=== PATIENT | female | born 1940 | race Caucasian/White ===

== ENCOUNTER → 2018-07-31 10:39 | Outpatient (BNVA) | payer MEDICARE, MEDICAID, SELFPAY | PROVIDERS: Visit Provider Orthopaedic Surgery | DX: M19.011 Primary osteoarthritis, right shoulder (principal); M25.511 Pain in right shoulder; I11.0 Hypertensive heart disease with heart failure; I50.9 Heart failure, unspecified | CPT/HCPCS: 20610; 99213; J1040 ==

== ENCOUNTER 2018-07-31 11:47 | Outpatient (CLI) | payer MEDICARE, MEDICAID, SELFPAY ==
--- NOTE | 2018-07-31 11:18 | DI.RAD_ITS ---
SYMPTOM/DIAGNOSIS: RIGHT SHOULDER PAIN RIGHT SHOULDER: AP and axillary projections of the right shoulder revealed joint space narrowing and articular sclerosis. There is also moderate DJD involving the AC joint. SUMMARY: Severe DJD, right shoulder.
== END 2018-07-31 12:07 ==
PROVIDERS: Visit Provider Orthopaedic Surgery
DX: M25.511 Pain in right shoulder (principal); M19.011 Primary osteoarthritis, right shoulder
CPT/HCPCS: 20610; 99213; 73030; J1040

== ENCOUNTER 2018-08-15 14:46 | Inpatient (IN) | payer MEDICARE, MEDICAID, SELFPAY ==
[2018-08-15] VITALS (70 sets, daily range): BP systolic 58–144; BP diastolic 20–95; PULSE 78–123; RESP 9–33; TEMP 37–37.2; O2SAT 83–98
--- NOTE | 2018-08-15 14:52 | W.ED.GENAD ---
Discharge Plan Disposition Patient Disposition: [facility] INPATIENT Condition: Stable Discharge Details Chief Complaint: GI Bleed Clinical Impression: Acute upper GI bleed Primary Care Provider: Randal Sainz ED Provider: García Ahumada [place] Meds and New Rx's Prescriptions: No Action methylprednisolone acetate [Depo-Medrol] 80 mg/mL suspension 80 mg IU ONCE Qty: 1 RF: 0 omeprazole 20 MG capsule,delayed release(DR/EC) 20 mg PO DAILY PRNRF: 0 ropinirole 0.5 MG tablet 1 mg PO HS Qty: 60 RF: 0 gabapentin 300 MG capsule 400 mg PO TID RF: 0 carvedilol 3.125 MG tablet 3.125 mg PO BID RF: 0 apixaban [Eliquis] 5 MG tablet 5 mg PO BID RF: 0 potassium chloride [Klor-Con M20] 20 MEQ tablet,ER particles/crystals 10 meq PO BID RF: 0 cyanocobalamin (vitamin B-12) [Vitamin B-12] 500 MCG tablet 2,000 mcg PO DAILY RF: 0 docusate sodium [Stool Softener] 50 MG capsule 1 cap PO BID PRN PRNQty: 0 RF: 0 hydrocodone-acetaminophen 1 TAB tablet 1 tab PO .Q4HRS PRN PRNQty: 30 RF: 0 amlodipine 10 MG tablet 5 mg PO DAILY RF: 0 amoxicillin-pot clavulanate 1 TAB tablet 1 tab PO BID 6 Days Qty: 13 RF: 0 Medical Decision Making 77 yo female with hx of prior pe's and dvts on eliquis, comes in with cc of n/v since Saturday and today has had bloody vomit per report of ems and pt. HAs also had some weakness, denies any chest pain, sob or abdominal pain. She is HD stable at this time. Given lack of abdominal pain on exam or distention doubt entities such as sbo or other surgical pathology. She has had diarrhea as well so likely has gastroenteritis which could have caused rasheeda gay tear. No hx of liver disease or heavy alcohol use so doubt varices. Will give ppi and eval for anemia and electrolyte abnormalities and monitor pt's labs show no significaitn abnormalities but does have elvated bun so would fit with upper gi bleed. Remains HD stable. Will admit for upper gi bleed Differential Diagnosis gastroenteritis, ulcer, rasheeda gay tear Lab Data Lab results reviewed: Yes I reviewed the patient's lab results. ECG Data Attestation: I personally reviewed and interpreted this ECG (s) as follows: Prior ECG tracings: not available for review Interpretation: atrial tachycardia, rate of 1056, normal pr, normal axis HPI General Mode of arrival: EMS. Date/Time Provider Initiated Documentation: 08/15/18 14:50. Limitations to Documentation: no limitations. Information obtained by: patient and EMS. History of Present Illness 77 year old F presents to the emergency department with the chief complaint of nausea and vomit, described as moderate, Patient started experiencing this day(s) (2) and it has been constant. No relieving factors improve symptom(s), Patient notes weakness. Patient did receive the following treatments prior to arrival, none Related Data Home Medications Medication Instructions Recorded Confirmed omeprazole 20 mg PO DAILY PRN tab-cap NS 01/08/13 07/31/18 ropinirole 1 mg PO HS #60 tab 04/10/13 07/31/18 gabapentin 400 mg PO TID 01/27/15 07/31/18 apixaban [Eliquis] 5 mg PO BID 03/29/15 07/31/18 carvedilol 3.125 mg PO BID 03/29/15 07/31/18 cyanocobalamin (vitamin B-12) 2,000 mcg PO DAILY 03/29/15 07/31/18 [Vitamin B-12] potassium chloride [Klor-Con M20] 10 meq PO BID 03/29/15 07/31/18 docusate sodium [Stool Softener] 1 cap PO BID PRN PRN #0 05/02/15 07/31/18 hydrocodone-acetaminophen 1 tab PO .Q4HRS PRN PRN #30 tab 05/02/15 07/31/18 amlodipine 5 mg PO DAILY 01/13/18 07/31/18 amoxicillin-pot clavulanate 1 tab PO BID 6 Days #13 tab 01/17/18 07/31/18 Previous Rx's Medication Instructions Recorded ropinirole 1 mg PO HS #60 tab 04/10/13 docusate sodium [Stool Softener] 1 cap PO BID PRN PRN #0 05/02/15 hydrocodone-acetaminophen 1 tab PO .Q4HRS PRN PRN #30 tab 05/02/15 amoxicillin-pot clavulanate 1 tab PO BID 6 Days #13 tab 01/17/18 Allergies Allergy/AdvReac Type Severity Reaction Status Date / Time Sulfa (Sulfonamide Allergy Intermediate Contraindic Unverified 08/15/18 15:29 Antibiotics) ated metoclopramide HCl AdvReac Mild Diarrhea Unverified 08/15/18 15:29 [From [facility] [place]] Review of Systems Review of Systems All systems reviewed & are unremarkable except as noted in HPI and below Constitutional Denies chills and Denies fever(s) Eyes Denies loss of vision ENT Denies change in voice Cardiovascular Denies chest pain and Denies dyspnea Respiratory Denies dyspnea Gastrointestinal Denies abdominal pain, Reports nausea and Reports vomiting Genitourinary Denies dysuria Musculoskeletal Denies joint swelling Integumentary/Breasts Denies rash Neurologic Denies loss of vision Psychiatric Denies depression Endocrine Denies cold intolerance and Denies heat intolerance Allergic/Immunologic Reports urticaria PFSH Medical History Chronic congestive heart failure Essential hypertension 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 Mixed hyperlipidemia Morbid obesity Personal history of pulmonary embolism Polymyalgia rheumatica Restless legs Social History Smoking/Tobacco Use Status: Never Surgical History Cholecystectomy Hernia Repair, Incisional Repair of umbilical hernia Exam Const General: no acute distress Orientation: alert HENMS Head: normal to inspection Ears: external ears normal General nose exam: external nose normal Mouth: moist mucous membranes Eyes General: appearance normal, both eyes and all related structures Neck Neck: normal visual inspection Resp Effort & Inspection: normal respiratory effort and able to speak in complete sentences Cardio Rate: regular rate GI Palpation: soft, not firm, no guarding and nontender Skin General skin exam: no rashes or lesions noted Neuro General: alert and oriented x3 Extrem General: normal to inspection Psych Mental Status: mental status grossly normal
--- NOTE | 2018-08-15 14:56 | ED.GENADUL_ITS ---
Discharge Plan Disposition Patient Disposition: [facility] INPATIENT Condition: Stable Discharge Details Chief Complaint: GI Bleed Clinical Impression: Acute upper GI bleed Primary Care Provider: Randal Sainz ED Provider: García Ahumada [place] Meds and New Rx's Prescriptions: No Action methylprednisolone acetate [Depo-Medrol] 80 mg/mL suspension 80 mg IU ONCE Qty: 1 RF: 0 omeprazole 20 MG capsule,delayed release(DR/EC) 20 mg PO DAILY PRNRF: 0 ropinirole 0.5 MG tablet 1 mg PO HS Qty: 60 RF: 0 gabapentin 300 MG capsule 400 mg PO TID RF: 0 carvedilol 3.125 MG tablet 3.125 mg PO BID RF: 0 apixaban [Eliquis] 5 MG tablet 5 mg PO BID RF: 0 potassium chloride [Klor-Con M20] 20 MEQ tablet,ER particles/crystals 10 meq PO BID RF: 0 cyanocobalamin (vitamin B-12) [Vitamin B-12] 500 MCG tablet 2,000 mcg PO DAILY RF: 0 docusate sodium [Stool Softener] 50 MG capsule 1 cap PO BID PRN PRNQty: 0 RF: 0 hydrocodone-acetaminophen 1 TAB tablet 1 tab PO .Q4HRS PRN PRNQty: 30 RF: 0 amlodipine 10 MG tablet 5 mg PO DAILY RF: 0 amoxicillin-pot clavulanate 1 TAB tablet 1 tab PO BID 6 Days Qty: 13 RF: 0 Medical Decision Making 77 yo female with hx of prior pe's and dvts on eliquis, comes in with cc of n/v since Saturday and today has had bloody vomit per report of ems and pt. HAs also had some weakness, denies any chest pain, sob or abdominal pain. She is HD stable at this time. Given lack of abdominal pain on exam or distention doubt entities such as sbo or other surgical pathology. She has had diarrhea as well so likely has gastroenteritis which could have caused rasheeda gay tear. No hx of liver disease or heavy alcohol use so doubt varices. Will give ppi and eval for anemia and electrolyte abnormalities and monitor pt's labs show no significaitn abnormalities but does have elvated bun so would fit with upper gi bleed. Remains HD stable. Will admit for upper gi bleed Differential Diagnosis gastroenteritis, ulcer, rasheeda gay tear Lab Data Lab results reviewed: Yes I reviewed the patient's lab results. ECG Data Attestation: I personally reviewed and interpreted this ECG (s) as follows: Prior ECG tracings: not available for review Interpretation: atrial tachycardia, rate of 1056, normal pr, normal axis HPI General Mode of arrival: EMS . Date/Time Provider Initiated Documentation: 08/15/18 14:50 . Limitations to Documentation: no limitations . Information obtained by: patient and EMS . History of Present Illness 77 year old F presents to the emergency department with the chief complaint of nausea and vomit, described as moderate, Patient started experiencing this day(s) (2) and it has been constant. No relieving factors improve symptom(s) , Patient notes weakness. Patient did receive the following treatments prior to arrival, none Related Data Home Medications Medication Instructions Recorded Confirmed omeprazole 20 mg PO DAILY PRN tab-cap NS 01/08/13 07/31/18 ropinirole 1 mg PO HS #60 tab 04/10/13 07/31/18 gabapentin 400 mg PO TID 01/27/15 07/31/18 apixaban [Eliquis] 5 mg PO BID 03/29/15 07/31/18 carvedilol 3.125 mg PO BID 03/29/15 07/31/18 cyanocobalamin (vitamin B-12) 2,000 mcg PO DAILY 03/29/15 07/31/18 [Vitamin B-12] potassium chloride [Klor-Con M20] 10 meq PO BID 03/29/15 07/31/18 docusate sodium [Stool Softener] 1 cap PO BID PRN PRN #0 05/02/15 07/31/18 hydrocodone-acetaminophen 1 tab PO .Q4HRS PRN PRN #30 tab 05/02/15 07/31/18 amlodipine 5 mg PO DAILY 01/13/18 07/31/18 amoxicillin-pot clavulanate 1 tab PO BID 6 Days #13 tab 01/17/18 07/31/18 Previous Rx's Medication Instructions Recorded ropinirole 1 mg PO HS #60 tab 04/10/13 docusate sodium [Stool Softener] 1 cap PO BID PRN PRN #0 05/02/15 hydrocodone-acetaminophen 1 tab PO .Q4HRS PRN PRN #30 tab 05/02/15 amoxicillin-pot clavulanate 1 tab PO BID 6 Days #13 tab 01/17/18 Allergies Allergy/AdvReac Type Severity Reaction Status Date / Time Sulfa (Sulfonamide Allergy Intermediate Contraindic Unverified 08/15/18 15:29 Antibiotics) ated metoclopramide HCl AdvReac Mild Diarrhea Unverified 08/15/18 15:29 [[facility] [place] Review of Systems Review of Systems All systems reviewed & are unremarkable except as noted in HPI and below Constitutional Denies chills and Denies fever(s) Eyes Denies loss of vision ENT Denies change in voice Cardiovascular Denies chest pain and Denies dyspnea Respiratory Denies dyspnea Gastrointestinal Denies abdominal pain, Reports nausea and Reports vomiting Genitourinary Denies dysuria Musculoskeletal Denies joint swelling Integumentary/Breasts Denies rash Neurologic Denies loss of vision Psychiatric Denies depression Endocrine Denies cold intolerance and Denies heat intolerance Allergic/Immunologic Reports urticaria PFSH Medical History Chronic congestive heart failure Essential hypertension 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 Mixed hyperlipidemia Morbid obesity Personal history of pulmonary embolism Polymyalgia rheumatica Restless legs Social History Smoking/Tobacco Use Status: Never Surgical History Cholecystectomy Hernia Repair, Incisional Repair of umbilical hernia Exam Const General: no acute distress Orientation: alert HENPA Head: normal to inspection Ears: external ears normal General nose exam: external nose normal Mouth: moist mucous membranes Eyes General: appearance normal, both eyes and all related structures Neck Neck: normal visual inspection Resp Effort & Inspection: normal respiratory effort and able to speak in complete sentences Cardio Rate: regular rate GI Palpation: soft, not firm, no guarding and nontender Skin General skin exam: no rashes or lesions noted Neuro General: alert and oriented x3 Extrem General: normal to inspection Psych Mental Status: mental status grossly normal
[2018-08-15 15:15] LABS: Abs Immature Grans 0.01 k/cumm (0.0-0.09); Absolute Basophil Count 0.01 k/cumm (0.0-0.2); Absolute Eosinophil Count 0.01 k/cumm (0.0-0.7); Absolute Lymphocyte Count 1.19 k/cumm (1.2-3.4); Absolute Monocyte Count 0.81 k/cumm (0.11-0.7); Absolute Neutrophil Count 7.53 k/cumm (1.2-6.7); Basophils % 0.1; Eosinophils % 0.1; HCT 39.6 % (36.0-46.0); HGB 12.7 g/dL (12.0-15.5); Immature Grans % 0.1; Lymphocytes % 12.4; Mean Corp. HGB Concentration 32.1 g/dL (32.0-36.0); Mean Corpuscular Hemoglobin 31.6 pg (27.0-33.0); Mean Corpuscular Volume 98.5 fL (80-95); Mean Platelet Volume 10.8 fL (8.0-11.0); Monocytes % 8.5; Neutrophils % 78.8; Platelet Count 201 x1000/uL (130-400); RBC 4.02 m/cumm (4.00-5.20); RBC Distribution Width 14.9 % (11.7-14.6); White Blood Cell Count 9.56 k/cumm (4.4-10.8)
[2018-08-15] MEDS: Ondansetron 4 MG/2 ML VIAL IVP (15:21)
[2018-08-15] MEDS: Pantoprazole 40 MG VIAL IVP ×2 (15:22→16:08)
[2018-08-15 15:25] LABS: Lipase 95 U/L (73-393)
[2018-08-15 15:27] LABS: INR 1.2 (1.0-3.5); PTT Activated 25.9 sec (21.0-31.4); Prothrombin Time 11.7 sec (9.3-10.8)
[2018-08-15 15:38] LABS: ALT 12 U/L (12-78); AST 32 U/L (15-37); Albumin 2.7 g/dL (3.4-5.0); Alkaline Phosphatase 85 U/L (46-116); Anion Gap 5.9 mmol/L (3-11); BUN 49 mg/dL (7-18); Bilirubin, Direct 0.16 mg/dL (0.00-0.20); Bilirubin, Total 0.6 mg/dL (0.2-1.0); CO2 32.1 mmol/L (21.0-32.0); CREATININE 1.16 mg/dL (0.55-1.02); Calcium 10.3 mg/dL (8.5-10.1); Chloride 105 mmol/L (98-107); Estimated GFR 45.07 (mL/min/1.73m2); Glucose 115 mg/dL (70-100); Magnesium 1.5 mg/dL (1.8-2.4); Potassium 3.8 mmol/L (3.5-5.1); Sodium 143 mmol/L (136-145); Total Protein 5.8 g/dL (6.4-8.2); Troponin I 0.03 ng/mL (0.00-0.06)
[2018-08-15] MEDS: Prochlorperazine 10 MG/2 ML VIAL IVP (15:47)
[2018-08-15] MEDS: Normal Saline 1,000 ML 100 ML IV ×2 (16:00→19:00)
[2018-08-15] MEDS: MAGNESIUM SULFATE 2 GM/50 ML BAG IVPB (16:12)
[2018-08-15] MEDS: Normal Saline Flush 10 ML SYR IVP (16:43)
--- NOTE | 2018-08-15 17:31 | DI.CT_ITS ---
SYMPTOM/DIAGNOSIS: LLQ PAIN, NAUSEA, VOMITING ABDOMEN AND PELVIC CT: CT examination of the abdomen and pelvis was performed without contrast administration due to the patient's impaired renal function. Images obtained through the lung bases show predominantly linear changes in the right lung base posteriorly, probable atelectasis or scarring, some element of acute consolidation not entirely excluded. Note is made of a previous cholecystectomy. Liver is grossly unremarkable by noncontrast criteria. Pancreas is atrophic. Spleen is small and not well visualized due to motion but grossly unremarkable. There are probable bilateral renal cysts. No gross hydronephrosis. Left renal cortical atrophy noted. Abdominal aorta is grossly of normal diameter. IVC filter noted in place. There is evidence of previous abdominal wall hernia surgery. No gross recurrent hernia is seen. No gross evidence of bowel obstruction. No free intraperitoneal air. No gross adenopathy is seen. CONCLUSION: Limited study due to non contrast technique and significant patient motion. Question right posterior basilar atelectasis versus consolidation. No gross intra-abdominal pathology.
--- NOTE | 2018-08-15 18:27 | NUR.NOTE ---
Was told by Qi Navarro RN in ER that patient's son felt that her speech was more slurred but neuro has been unchanged while in ED. This was told by Bud Barnett RN to Becca Rose RN at time of arrival. Bud Rose to follow-up on if was aware of this statement by the son.Nursing Note:
--- NOTE | 2018-08-15 18:28 | HPE_ITS ---
Date of service: 08/15/18 Time of Service: 18:19 Assessment and Plan (1) Upper GI bleeding: Current visit: Yes Status: Acute Patient is being admitted with telemetry. Her H/H's will be trended Q8 hours. She is on protonix drip. We will hold her anticoagluation. Hydrate intravenously. Surgery consult. (2) LLQ pain: Current visit: Yes Status: Acute Await results of CT abdomen/pelvis. Obtain C.Diff study given coexistence of nausea, vomiting and watery diarrhea. (3) Hx of deep vein thrombosis and pulmonary emboli 2005: Current visit: No Status: Chronic S/p IVC filter - ok to hold anticoagulation at this time. 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 The patient is at her neurologic baseline, per son. (5) Peptic ulcer disease: Current visit: No Status: Chronic On IV PPI (6) Essential hypertension: Current visit: No Status: Chronic Will hold home antihypertensives at this time and monitor BP's (7) Discharge planning issues: Current visit: Yes Status: Acute Patient is DNR/DNI. She is wheelchair bound and will be seen by PT. History of Present Illness Chief Complaint: I was bleeding and had an upset stomach Narrative: 77 year old female with PMHx of multiple DVT's/PE's s/p IVC filter on eliquis, as well as h/o hemorrhagic CVA in 2015, L BKA, chronic CHF and prior rectal bleeding who presented to [facility] ED today after witnessed hematemesis. Patient's symptoms started on Saturday and included LLQ pain in addition to nausea, vomiting and watery diarrhea. Yesterday, evidently there was dark red blood seen in the stool. Today, the stools were almost black and the patient had blood in her emetic contents, so she was brought in to ED by ambulance. In the ER, she was found to be normotensive and slightly tachycardic. There had not been any witnessed hematemesis or blood in stool since arrival to [facility]. The patient continues to report LLQ pain. She denies any dizziness, chest pain, or shortness of breath. No one else in the household has had symptoms of gastroenteritis. Review of Systems Review of Systems 12 systems were reviewed. 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 Mixed hyperlipidemia Morbid obesity Personal history of pulmonary embolism Polymyalgia rheumatica Restless legs Social History Smoking/Tobacco Use Status: Never Surgical History Cholecystectomy Hernia Repair, Incisional Repair of umbilical hernia Meds Home Medications Medication Instructions Recorded Confirmed Type omeprazole 20 mg PO DAILY PRN tab-cap NS 01/08/13 08/15/18 History ropinirole 1 mg PO HS #60 tab 04/10/13 08/15/18 Rx gabapentin 400 mg PO TID 01/27/15 08/15/18 History apixaban [Eliquis] 5 mg PO BID 03/29/15 08/15/18 History carvedilol 3.125 mg PO BID 03/29/15 07/31/18 History cyanocobalamin (vitamin B-12) 2,000 mcg PO QAM 03/29/15 08/15/18 History [Vitamin B-12] potassium chloride [Klor-Con M20] 10 meq PO BID 03/29/15 08/15/18 History docusate sodium [Stool Softener] 1 cap PO BID PRN PRN #0 05/02/15 08/15/18 Rx hydrocodone-acetaminophen 1 tab PO .Q4HRS PRN PRN #30 tab 05/02/15 08/15/18 Rx amlodipine 5 mg PO DAILY 01/13/18 08/15/18 History amoxicillin-pot clavulanate 1 tab PO BID 6 Days #13 tab 01/17/18 07/31/18 Rx Depo-Medrol 80 mg/mL suspension 80 mg IU ONCE #1 ml NS 07/31/18 Clinic for injection Lactobacillus acidophilus 1 cap PO BID 08/15/18 08/15/18 History [Acidophilus] acetaminophen 650 mg PO Q4H PRN 08/15/18 08/15/18 History bisacodyl 1 ea NV DIRECTED 08/15/18 08/15/18 History cetirizine 10 mg PO QAM 08/15/18 08/15/18 History chlorthalidone 25 mg PO QAM 10/12/18 10/12/18 History lisinopril 20 mg PO QAM 08/15/18 08/15/18 History magnesium hydroxide [Milk of 30 ml PO PRN PRN 08/15/18 08/15/18 History Magnesia] polyethylene glycol 3350 17 g PO QAM 08/15/18 08/15/18 History Allergies Allergy/AdvReac Type Severity Reaction Status Date / Time Sulfa (Sulfonamide Allergy Intermediate Contraindic Unverified 08/15/18 15:29 Antibiotics) ated metoclopramide HCl AdvReac Mild Diarrhea Unverified 08/15/18 15:29 [From [facility]] Exam Narrative Exam Narrative: Vital Signs - 24 hr 08/15/18 14:35 08/15/18 14:36 08/15/18 14:48 Temperature 37.0 C Pulse 112 H Pulse [Monitor] Respiratory Rate 16 15 Blood Pressure 120/37 L Blood Pressure [Left Arm] Pulse Oximetry 98 93 L 93 L 08/15/18 14:50 08/15/18 15:00 08/15/18 15:10 Temperature Pulse Pulse [Monitor] Respiratory Rate 16 25 H 18 Blood Pressure Blood Pressure [Left Arm] Pulse Oximetry 95 95 88 L 08/15/18 15:16 08/15/18 15:20 08/15/18 15:30 Temperature Pulse 105 H Pulse [Monitor] Respiratory Rate 14 15 Blood Pressure 123/62 Blood Pressure [Left Arm] Pulse Oximetry 83 L 92 L 96 08/15/18 15:31 08/15/18 15:40 08/15/18 15:46 Temperature Pulse 90 107 H Pulse [Monitor] Respiratory Rate 20 17 19 Blood Pressure 126/95 H 144/60 H Blood Pressure [Left Arm] Pulse Oximetry 93 L 96 93 L 08/15/18 15:50 08/15/18 16:00 08/15/18 16:01 Temperature Pulse 101 H Pulse [Monitor] Respiratory Rate 16 10 L 12 Blood Pressure 117/60 Blood Pressure [Left Arm] Pulse Oximetry 90 L 91 L 93 L 08/15/18 16:10 08/15/18 16:16 08/15/18 16:20 Temperature Pulse 83 Pulse [Monitor] Respiratory Rate 21 15 19 Blood Pressure 77/53 L Blood Pressure [Left Arm] Pulse Oximetry 94 L 91 L 89 L 08/15/18 16:30 08/15/18 16:32 08/15/18 16:40 Temperature Pulse 108 H Pulse [Monitor] Respiratory Rate 16 22 16 Blood Pressure 114/64 Blood Pressure [Left Arm] Pulse Oximetry 92 L 94 L 92 L 08/15/18 16:45 08/15/18 16:50 08/15/18 17:00 Temperature Pulse 105 H Pulse [Monitor] Respiratory Rate 18 14 20 Blood Pressure 124/62 Blood Pressure [Left Arm] Pulse Oximetry 89 L 90 L 90 L 08/15/18 17:01 08/15/18 18:04 Temperature 37.2 C Pulse 108 H Pulse [Monitor] 109 H Respiratory Rate 16 Blood Pressure 88/57 L Blood Pressure [Left Arm] 115/51 L Pulse Oximetry 93 L 90 L General: Elderly female, hard of hearing, pale, laying flat in bed, appears uncomfortable Neurological: A&Ox2, poor history provider, poor recall, no obvious focal deficits Psychiatric: appears detached Skin: LLE stump is dressed - c/d/i. Otherwise, pale, dry. HEENT: EOMI, PERRLA, dry MM, Clear oropharynx, no submandibular or cervical lymphadenopathy, no goiter or JVD. Heart: RRR, tachycardic Lungs: CTAB Abdomen: soft, tender with rebound tenderness in LLQ Extremities: S/p L BKA, stump dressed; RLE w/o edema, clubbing or cyanosis, warm. +1 pedal pulse in RLE. Results Labs : 08/15/18 15:00 08/15/18 15:00 Laboratory Results - last 24 hr 08/15/18 08/15/18 08/15/18 15:00 15:00 15:00 WBC 9.56 RBC 4.02 Hgb 12.7 Hct 39.6 MCV 98.5 H MCH 31.6 MCHC 32.1 RDW 14.9 H Plt Count 201 MPV 10.8 Immature Gran % 0.1 Neutrophils % 78.8 Lymphocytes % 12.4 Monocytes % 8.5 Eosinophils % 0.1 Basophils % 0.1 Absolute Neutrophils 7.53 H Absolute Lymphocytes 1.19 L Absolute Monocytes 0.81 H Absolute Eosinophils 0.01 Absolute Basophils 0.01 PT 11.7 H INR 1.2 APTT 25.9 Sodium 143 Potassium 3.8 Chloride 105 Carbon Dioxide 32.1 H Anion Gap 5.9 BUN 49 H Creatinine 1.16 H Estimated GFR/1.73 m2 45.07 Glucose 115 H Calcium 10.3 H Magnesium 1.5 L Total Bilirubin 0.6 Conjugated Bilirubin 0.16 AST 32 ALT 12 Alkaline Phosphatase 85 Troponin I 0.03 Total Protein 5.8 L Albumin 2.7 L Lipase Patient ABO/Rh Antibody Screen 08/15/18 08/15/18 15:00 15:00 WBC RBC Hgb Hct MCV MCH MCHC RDW Plt Count MPV Immature Gran % Neutrophils % Lymphocytes % Monocytes % Eosinophils % Basophils % Absolute Neutrophils Absolute Lymphocytes Absolute Monocytes Absolute Eosinophils Absolute Basophils PT INR APTT Sodium Potassium Chloride Carbon Dioxide Anion Gap BUN Creatinine Estimated GFR/1.73 m2 Glucose Calcium Magnesium Total Bilirubin Conjugated Bilirubin AST ALT Alkaline Phosphatase Troponin I Total Protein Albumin Lipase 95 Patient ABO/Rh A Positive Antibody Screen Negative CT abdomen/pelvis: pending Last Vital Signs Temp 37.0 C 08/15/18 14:36 Pulse 108 H 08/15/18 17:01 Resp 16 08/15/18 17:01 BP 88/57 L 08/15/18 17:01 Pulse Ox 93 L 08/15/18 17:01
--- NOTE | 2018-08-15 18:53 | DI.VRAD_ITS ---
EXAM: CT Abdomen and Pelvis Without Intravenous Contrast CLINICAL HISTORY: 77 years old, female; Pain and signs and symptoms; Nausea and vomiting; Abdominal pain; Localized; Left lower quadrant (llq); Patient HX: Llq pain, nausea, vomiting TECHNIQUE: Axial computed tomography images of the abdomen and pelvis without intravenous contrast. COMPARISON: CT ABD/PELVIS WO W CONTRAST 07/23/2013 11:34 AM FINDINGS: Right posterior basilar consolidation likely representing atelectasis. Pneumonitis cannot be excluded. Prior cholecystectomy. Prior anterior abdominal wall hernia repair with a mesh. Inferior vena cava filter in place. Minimal calcification associated with the right kidney possibly representing nonobstructing nephrolithiasis. Renal cysts. Normal appearing solid organs. No intestinal obstruction. No obstructive uropathy. No free fluid. No free air. No inflammatory changes. IMPRESSION: Right basilar consolidation atelectasis versus pneumonia. No specific etiology identified for the patient's symptoms. Dictated and Authenticated by: Rojas Carrillo MD. Ordering:ALLAN MORA MD
[2018-08-15] MEDS: PANTOPRAZOLE 80 MG in Normal Saline 100 ML 10 MG IV (19:58)
[2018-08-15] MEDS: Zolpidem 5 MG TAB PO (21:47)
[2018-08-15 22:46] LABS: HCT 33.7 % (36.0-46.0)
[2018-08-16] VITALS (62 sets, daily range): BP systolic 93–125; BP diastolic 50–90; PULSE 79–145; RESP 10–32; TEMP 35.8–37; O2SAT 71–100
[2018-08-16] MEDS: Normal Saline 1,000 ML 100 ML IV (05:22)
[2018-08-16] MEDS: PANTOPRAZOLE 80 MG in Normal Saline 100 ML 10 MG IV (05:22)
[2018-08-16 07:00] LABS: HCT 33.8 % (36.0-46.0); HGB 10.9 g/dL (12.0-15.5); Mean Corp. HGB Concentration 32.2 g/dL (32.0-36.0); Mean Corpuscular Hemoglobin 32.1 pg (27.0-33.0); Mean Corpuscular Volume 99.4 fL (80-95); Platelet Count 166 x1000/uL (130-400); RBC Distribution Width 14.7 % (11.7-14.6); White Blood Cell Count 8.04 k/cumm (4.4-10.8)
[2018-08-16 07:21] LABS: Anion Gap 5.6 mmol/L (3-11); BUN 36 mg/dL (7-18); CO2 30.4 mmol/L (21.0-32.0); CREATININE 1.07 mg/dL (0.55-1.02); Calcium 9.2 mg/dL (8.5-10.1); Chloride 108 mmol/L (98-107); Estimated GFR 49.47 (mL/min/1.73m2); Glucose 80 mg/dL (70-100); Magnesium 1.7 mg/dL (1.8-2.4); Potassium 3.3 mmol/L (3.5-5.1); Sodium 144 mmol/L (136-145)
--- NOTE | 2018-08-16 07:54 | INITIAL_ITS ---
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 Surgical: cholecystectomy, IVC filter placement, ovarian cyst drainage, rectal fissure repair, sigmoid hemicolectomy and diverting colostomy, reversal of colostomy, ventral hernia repair. PREVIOUS FUNCTIONAL STATUS/SOCIAL/FAMILY SUPPORTS:: Lives with her Kaushal, and son, Cali in their home in [place]. Her son provides her with transportation. She has been mostly independent with ADL's. Son helps them with chores around the house. They have 2 other sons nearby and a daughter who lives in [facility] and works for the formerly [employer]. She currently has moderate needs [facility] drapery maker 2 times a week and Rehana is the CM CURRENT FUNCTIONAL STATUS:: Fay is lying in bed she is sleepy today and is not easily awaken when CM into visit. She is being monitored in the ICU. ADVANCE DIRECTIVES:: On file at [facility] agent is Kaushal Has patient been provided with information about the portal?: Yes Did the patient sign up for the portal?: No CODE STATUS:: DNR/DNI INSURANCE COVERAGE / FINANCIAL ISSUES:: Medicare. Medicaid CURRENT HOME/COMMUNITY SERVICES/EQUIPMENT:: [facility] moderate needs CM Rehana at . Has a cane, walker, ramp, raised toilet seat, hand shower, handrails, w/c at home. PRIMARY CARE PHYSICIAN:: [facility] POTENTIAL DISCHARGE NEEDS:: Follow up appointment scheduled with primary care provider shaquille prior to discharge. PATIENT/FAMILY EDUCATION NEEDS:: Discharge education, limitations and follow up plan of care ANTICIPATED BARRIERS TO DISCHARGE:: None TRANSPORTATION:: Via private car when medically ready with her son. PLAN:: Fay is currently being monitored in the ICU she is receiving IV pantoprazole. A surgical and PT consult is in place. She will discharge home when medically ready per MD. She will resume services through [facility] moderate needs. CM to continue to provide support to Pt, family and care team discharge planning and disposition.
[2018-08-16] MEDS: Magnesium Oxide 400 MG TAB PO (09:17)
[2018-08-16] MEDS: Potassium Chloride 20 MEQ TABCR 40 MEQ PO (09:18)
--- NOTE | 2018-08-16 10:38 | PHARADMIT ---
Addendum entered by Heather Pierson 08/17/18 12:35: Pharmacy Note Subjective pt is not a candidate for Anticoagulation Objective BP 133/67, HR 80's, afebrile, lytes ok, H/H stable 10.3/32.3 Assessment Pt lost IV access, Protonix infusion dc'd, restarted as IV Push BID later in the day, also on Carafate Ceftriaxone changed to IV Levaquin after 1/2 of Ceftriaxone had infused. Started Levaquin a few hours later. Levaquin needs renal adjustment for CrCl~31.5ml/min to Q48h....will ask MD Boudreaux 10/325mg added for pain Chest xray today: possible Pneumonia/Atelectasis....hence Anbx change DVT prophylaxis: SCD's Plan Check renal function and Levaquin dosing, follow H/H Advancing diet Original Note: Admission Pharmacy Clinical Review UPPER GI BLEED WHILE ON ELIQUIS Code Status DNR/DNI Current Weight 63.8 kg Renally Cleared and Narrow Therapeutic Index Meds CrCl~30ml/hr QTc Value / Action Taken BP Control, Fever BP soft 93/50 HR 90-100's Afebrile Electrolytes reviewed K+ 3.3 Mag 1.7 (replaced) DVT Prophylaxis NONE at this time due to bleed, Hx of DVT and PE, Hemorrhagic CVA Opiate Usage / Scheduled Bowel Regimen Ordered Plt/SCr for Heparin / Enoxaparin Plt 166 SCr 1.07 INR for Warfarin H/H stable, WBC/Bands H/H 10.9/33.8 (down a little) WBC 8.04 Antibiotic appropriateness n/a Cultures and Sensitivities n/a....MD may check Urine Surgical ABX d/c within 24 hr DM control / Insulin Dosing BG 80 Heart Failure (Check EF%) (MOIRA's, B-Block, Diuretics) none IV to PO Switch Home Meds Reviewed Home Meds Not Ordered Amlodipine, Eliquis, Coreg, Cetirizine, Chlorthalidone, Vit B12, Docusate, Gabapentin, [place], Lactobacillis, Lisinopril, Omeprazole, [place], Potassium Comments N/V on admission, wheelchair bound, multiple Hx DVT, PE, IVC filter, Hemorrhagic CVA Protonix infusion On telemetry
--- NOTE | 2018-08-16 13:07 | PT.INIE ---
Date of service: 08/16/18 Time of Service: 11:15 PT Notes Date: 08/16/2018 Referring: Dr. Manning Referring diagnosis: Patient is status post left BKA, wheelchair-bound Precautions: Standard, contact, fall Patient profile/admitting diagnosis: Patient admitted after presenting at the emergency room after witnessed hematemesis. Complaints included left upper quadrant pain. Patient admitted to ICU. PMHx:Chronic congestive heart failure, Essential hypertension, 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, Mixed hyperlipidemia, Morbid obesity, Personal history of pulmonary embolism, Polymyalgia rheumatica, Restless legs, history of CVA, s/p left BKA Social history/Home situation: Patient lives in a private home with family support. Per her EMR she is wheelchair-bound, however during evaluation she reports that she ambulates with a left lower extremity prosthesis. She is unable to provide any further history, and no family is present at time of evaluation. Equipment owned: Unknown Subjective: Patient sleeping in bed at initiation of session. She is able to be aroused, and reports that she needs to use the commode urgently. Objective: General observation: Multiple lines. Patient has an IV in the left upper extremity, which is bleeding profusely at initiation of session. Nursing was alerted to this. She has oxygen supplementation via nasal cannula, telemetry in place, and pulse oximeter on right earlobe. Mental status: Alert, not oriented to place or time. Pain: Patient denies R OM: Upper extremities within normal limits Right lower extremity: Hip flexion greater than 100 degrees; knee motion grossly within normal limits. Patient does have deformity of the right foot and ankle, although is able to attain neutral dorsiflexion. Left lower extremity: Hip and knee range of motion grossly within normal limits. Patient has a left BKA. Strength: Unable to formally assess. Functionally patient is able to demonstrate at least 3+/5 triceps strength and quadriceps strength. Hamstring strength is at least 3+/5 on the right. Bed mobility/transfers: Rolling: Mod assist Supine to sit: Mod assist x1 Sit to supine: Max assist x2 Sit to stand: Max assist x2 Stand to sit: Max assist x2 Bed to commode: Max assist x2 via stand pivot transfer Commode to bed: Max assist x2 via stand pivot transfer Gait: Unable Stairs: Unable Balance: Static sitting: Poor Dynamic sitting: Unable Static standing: Unable Dynamic standing: Unable Standardized measures: [employer] AM PAC 6 clicks basic mobility inpatient short form: Raw score: 11 standardized score: 33.86 CMS score: 73% CMS modifier: CL Informed consent/education: Patient instructed in purpose of PT consult and plan of care. Assessment: Patient is a 77-year-old female referred for physical therapy services with a diagnosis of S/P left BKA, wheelchair-bound. She presents with signs and symptoms consistent with severe mobility deficits related to acute medical issues. I suspect she has chronic mobility issues, however this is difficult to assess today due to her mental status. She will likely require extensive PT intervention to maximize her mobility and independence, and may require a rehab stay prior to returning home. She currently demonstrates the following impairment level findings: 1. Decreased strength lower extremities 2. Decreased activity tolerance 3. Confusion Impairments are returning to the following functional limitations: 1. Unable to independently transfer 2. Unable to independently complete bed mobility activities 3. Unable to ambulate 4. Dependent for all ADLs and self-care Impact score: 73% deficit Patient is assessed as high complexity (39294), based on the following: History: 77-year-old female with acute medical issues resulting in severe limitations in mobility. Patient has apparently also had a mental status change, which contributes to her diminished mobility. She is also status post left BKA, and baseline level of mobility is unknown. She also has multiple medical comorbidities, including history of DVT and PE with chronic anticoagulation, and is status post CVA. Examination: Functional limitations as above Presentation: Unstable, with continued monitoring in ICU Decision making: High complexity Goals: 1 week: 1. Supine to sit: Min assist x1 2. Sit to supine: Mod assist x1 3. Sit to stand: Mod assist x1 4. Stand to sit: Mod assist x1 5. Bed to chair: Stand pivot with mod assist of 1 6. Chair to bed: Stand pivot with mod assist of 1 Plan of care/treatment plan: 1?2X/day, 7 days/week X 1 week Plan of care has been reviewed with the CLEAN ROOM TECHNICIAN providing the service under physical therapy direction. Initiate PT intervention for strengthening, bed mobility, transfers, balance training, use of assistive device. DISCHARGE recommendations: Patient will likely require rehab stay Treatment codes/time: 04617, 1115?1150 Functional reporting: Mobility: Walking moving around. Current status: [id number]; projected goal status: [id number] Disclaimer: This note was created using [employer] voice recognition software. It was reviewed for major content. However, there may be multiple small discrepancies and errors due to the voice recognition aspects of the software.
--- NOTE | 2018-08-16 13:10 | IN_ITS ---
Date of service: 08/16/18 Time of Service: 11:15 PT Notes Date: 08/16/2018 Referring: Dr. Manning Referring diagnosis: Patient is status post left BKA, wheelchair-bound Precautions: Standard, contact, fall Patient profile/admitting diagnosis: Patient admitted after presenting at the emergency room after witnessed hematemesis. Complaints included left upper quadrant pain. Patient admitted to ICU. PMHx:Chronic congestive heart failure, Essential hypertension, 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, Mixed hyperlipidemia, Morbid obesity , Personal history of pulmonary embolism, Polymyalgia rheumatica, Restless legs , history of CVA, s/p left BKA Social history/Home situation: Patient lives in a private home with family support. Per her EMR she is wheelchair-bound, however during evaluation she reports that she ambulates with a left lower extremity prosthesis. She is unable to provide any further history, and no family is present at time of evaluation. Equipment owned: Unknown Subjective: Patient sleeping in bed at initiation of session. She is able to be aroused, and reports that she needs to use the commode urgently. Objective: General observation: Multiple lines. Patient has an IV in the left upper extremity, which is bleeding profusely at initiation of session. Nursing was alerted to this. She has oxygen supplementation via nasal cannula, telemetry in place, and pulse oximeter on right earlobe. Mental status: Alert, not oriented to place or time. Pain: Patient denies R OM: Upper extremities within normal limits Right lower extremity: Hip flexion greater than 100 degrees; knee motion grossly within normal limits. Patient does have deformity of the right foot and ankle, although is able to attain neutral dorsiflexion. Left lower extremity: Hip and knee range of motion grossly within normal limits. Patient has a left BKA. Strength: Unable to formally assess. Functionally patient is able to demonstrate at least 3+/5 triceps strength and quadriceps strength. Hamstring strength is at least 3+/5 on the right. Bed mobility/transfers: Rolling: Mod assist Supine to sit: Mod assist x1 Sit to supine: Max assist x2 Sit to stand: Max assist x2 Stand to sit: Max assist x2 Bed to commode: Max assist x2 via stand pivot transfer Commode to bed: Max assist x2 via stand pivot transfer Gait: Unable Stairs: Unable Balance: Static sitting: Poor Dynamic sitting: Unable Static standing: Unable Dynamic standing: Unable Standardized measures: [employer] AM PAC 6 clicks basic mobility inpatient short form: Raw score: 11 standardized score: 33.86 CMS score: 73% CMS modifier: CL Informed consent/education: Patient instructed in purpose of PT consult and plan of care. Assessment: Patient is a 77-year-old female referred for physical therapy services with a diagnosis of S/P left BKA, wheelchair-bound. She presents with signs and symptoms consistent with severe mobility deficits related to acute medical issues. I suspect she has chronic mobility issues, however this is difficult to assess today due to her mental status. She will likely require extensive PT intervention to maximize her mobility and independence, and may require a rehab stay prior to returning home. She currently demonstrates the following impairment level findings: 1. Decreased strength lower extremities 2. Decreased activity tolerance 3. Confusion Impairments are returning to the following functional limitations: 1. Unable to independently transfer 2. Unable to independently complete bed mobility activities 3. Unable to ambulate 4. Dependent for all ADLs and self-care Impact score: 73% deficit Patient is assessed as high complexity (72035), based on the following: History: 77-year-old female with acute medical issues resulting in severe limitations in mobility. Patient has apparently also had a mental status change , which contributes to her diminished mobility. She is also status post left BKA, and baseline level of mobility is unknown. She also has multiple medical comorbidities, including history of DVT and PE with chronic anticoagulation, and is status post CVA. Examination: Functional limitations as above Presentation: Unstable, with continued monitoring in ICU Decision making: High complexity Goals: 1 week: 1. Supine to sit: Min assist x1 2. Sit to supine: Mod assist x1 3. Sit to stand: Mod assist x1 4. Stand to sit: Mod assist x1 5. Bed to chair: Stand pivot with mod assist of 1 6. Chair to bed: Stand pivot with mod assist of 1 Plan of care/treatment plan: 1?2X/day, 7 days/week X 1 week Plan of care has been reviewed with the ARMATURE WINDER REPAIR HELPER providing the service under physical therapy direction. Initiate PT intervention for strengthening, bed mobility, transfers, balance training, use of assistive device. DISCHARGE recommendations: Patient will likely require rehab stay Treatment codes/time: 07116, 1115?1150 Functional reporting: Mobility: Walking moving around. Current status: [id number] ?CL; projected goal status: [id number]?CJ Disclaimer: This note was created using [employer] voice recognition software. It was reviewed for major content. However, there may be multiple small discrepancies and errors due to the voice recognition aspects of the software.
--- NOTE | 2018-08-16 13:20 | PGE_ITS ---
Assessment and Plan (1) Upper GI bleeding: Current visit: Yes Status: Acute Likely UGIB by history. Apixaban on hold. Discontinue PPI gtt and change to BID IV Dosing, with addition of oral Sucralfate. Continue to trend H/H's, and if stable start liquid diet this afternoon. Continue IVFs - noted history of 'CHF' but no evidence of prior ECHO, and not currently volume overloaded. Will monitor fluid status carefully. No evidence of diverticulitis or other LLQ pathology by CT to explain prior complaint of lower abdominal pain. (2) LLQ pain: Current visit: Yes Status: Acute CT abdomen/pelvis without evidence of pathology, including diverticulitis. Currently with pain appearing to be resolved. Continue to monitor. (3) Hx of deep vein thrombosis and pulmonary emboli 2006: Current visit: No Status: Chronic Holding Apixaban in setting of GI Bleed. Please note that while patient has had recurrent episodes of DVT and prior PE, she has also had a documented Hemorrhagic CVA as well as a current GI Bleed. Anticoagulation may be contraindicated in this patient - will discuss with patient's PCP when able regarding long-term goals and plans for her care. (4) H/O: CVA (cerebrovascular accident): Current visit: No Status: Chronic Hemorrhagic CVA in the past while on anticoagulation. (5) Essential hypertension: Current visit: No Status: Chronic Will hold home antihypertensives at this time and monitor blood pressure - CCB, BB, and MOIRA-I all on hold. (6) DVT prophylaxis: Current visit: Yes Status: Acute SCDs. (7) Discharge planning issues: Current visit: Yes Status: Acute Patient is DNR/DNI. Subjective Interval history since last seen: 77 year old female with a past medical history significant for multiple DVT's/PE's s/p IVC filter on anticoagulation with Apixaban, as well as a history of hemorrhagic CVA in 2015 presented to [facility] with reported witnessed episode of hematemesis. Patient's symptoms started 2 days prior to admission, and included LLQ pain in addition to nausea, vomiting and watery diarrhea. This morning the patient's hemoglobin remains mildly low but stable. She reports improvement in her overall symptoms. No other events reported - remains afebrile. Exam Narrative Exam Narrative: General: Patient appears comfortable, AAOX3, NAD Neck: Supple CV: Regular, Mildly tachycardic, S1S2, No rubs, murmurs, or gallops. Pulmonary: Clear to auscultation bilaterally, no crackles, wheezing, or rhonchi Abdomen: + Bowel Sounds, soft, mild epigastric tenderness, nondistended Vascular: No lower extremity edema on right. LLE BKA noted. Psych: Normal mood and affect. Objective Objective Clinical Data: Abnormal lab results 08/15/18 08/15/18 08/15/18 Range/Units 15:00 15:00 15:00 RBC (4.00-5.20) m/cumm Hgb (12.0-15.5) g/dL Hct (36.0-46.0) % MCV 98.5 H (80-95) fL RDW 14.9 H (11.7-14.6) % Absolute Neutrophils 7.53 H (1.2-6.7) k/cumm Absolute Lymphocytes 1.19 L (1.2-3.4) k/cumm Absolute Monocytes 0.81 H (0.11-0.7) k/cumm PT 11.7 H (9.3-10.8) sec Potassium (3.5-5.1) mmol/L Chloride (98-107) mmol/L Carbon Dioxide 32.1 H (21.0-32.0) mmol/L BUN 49 H (7-18) mg/dL Creatinine 1.16 H (0.55-1.02) mg/dL Glucose 115 H (70-100) mg/dL Calcium 10.3 H (8.5-10.1) mg/dL Magnesium 1.5 L (1.8-2.4) mg/dL Total Protein 5.8 L (6.4-8.2) g/dL Albumin 2.7 L (3.4-5.0) g/dL 08/15/18 08/16/18 08/16/18 Range/Units 22:43 06:35 06:35 RBC 3.40 L (4.00-5.20) m/cumm Hgb 11.0 L 10.9 L (12.0-15.5) g/dL Hct 33.7 L 33.8 L (36.0-46.0) % MCV 99.4 H (80-95) fL RDW 14.7 H (11.7-14.6) % Absolute Neutrophils (1.2-6.7) k/cumm Absolute Lymphocytes (1.2-3.4) k/cumm Absolute Monocytes (0.11-0.7) k/cumm PT (9.3-10.8) sec Potassium 3.3 L (3.5-5.1) mmol/L Chloride 108 H (98-107) mmol/L Carbon Dioxide (21.0-32.0) mmol/L BUN 36 H D (7-18) mg/dL Creatinine 1.07 H (0.55-1.02) mg/dL Glucose (70-100) mg/dL Calcium (8.5-10.1) mg/dL Magnesium 1.7 L (1.8-2.4) mg/dL Total Protein (6.4-8.2) g/dL Albumin (3.4-5.0) g/dL Vital Signs Temperature 36 C L 08/16/18 11:46 Temperature Source Tympanic 08/16/18 11:46 Pulse 110 H 08/16/18 11:46 Pulse Rhythm Regular 08/16/18 08:26 Pulse 105 H 08/16/18 09:01 Respiratory Rate 18 08/16/18 11:46 Respiratory Effort 08/16/18 08:26 Respiratory Depth Shallow 08/16/18 08:26 Respiratory Pattern Normal 08/16/18 08:26 Blood Pressure 115/55 L 08/16/18 11:46 Blood Pressure Mean 57 08/16/18 09:01 Blood Pressure Position Supine 08/15/18 18:04 Pulse Oximetry 98 08/16/18 11:46 Oxygen Delivery Method Room Air 08/16/18 11:46 Oxygen Flow Rate 0 08/16/18 11:46 Pain Level 0 08/16/18 11:46 Comment 08/15/18 14:36 Intake & Output 08/15/18 08/16/18 08/16/18 23:59 11:59 23:59 Intake Total 1350 / 1350 465.667 / 465.667 Output Total 210 / 210 1175 / 1175 Balance 1140 / 1140 -709.333 / -709.333 -15 -15 Weight 63.8 kg Intake: IV 1350 / 1350 435.667 / 435.667 Oral 30 / 30 Output: Urine 210 / 210 1175 / 1175 Other: Urine Color Yellow Yellow Urine Appearance Clear Clear Urine Odor None Strong Strong Comment mixed with stool Emesis Description Coffee Grounds Voiding Methods Bedside Commode Bedside Commode Bedpan Laboratory Results WBC 8.04 k/cumm (4.4-10.8) 08/16/18 06:35 RBC 3.40 m/cumm (4.00-5.20) L 08/16/18 06:35 Hgb 10.9 g/dL (12.0-15.5) L 08/16/18 06:35 Hct 33.8 % (36.0-46.0) L 08/16/18 06:35 MCV 99.4 fL (80-95) H 08/16/18 06:35 MCH 32.1 pg (27.0-33.0) 08/16/18 06:35 MCHC 32.2 g/dL (32.0-36.0) 08/16/18 06:35 RDW 14.7 % (11.7-14.6) H 08/16/18 06:35 Plt Count 166 x1000/uL (130-400) 08/16/18 06:35 MPV 11.0 fL (8.0-11.0) 08/16/18 06:35 Immature Gran % 0.1 08/15/18 15:00 Neutrophils % 78.8 08/15/18 15:00 Lymphocytes % 12.4 08/15/18 15:00 Monocytes % 8.5 08/15/18 15:00 Eosinophils % 0.1 08/15/18 15:00 Basophils % 0.1 08/15/18 15:00 Absolute Neutrophils 7.53 k/cumm (1.2-6.7) H 08/15/18 15:00 Absolute Lymphocytes 1.19 k/cumm (1.2-3.4) L 08/15/18 15:00 Absolute Monocytes 0.81 k/cumm (0.11-0.7) H 08/15/18 15:00 Absolute Eosinophils 0.01 k/cumm (0.0-0.7) 08/15/18 15:00 Absolute Basophils 0.01 k/cumm (0.0-0.2) 08/15/18 15:00 PT 11.7 sec (9.3-10.8) H 08/15/18 15:00 INR 1.2 (1.0-3.5) 08/15/18 15:00 APTT 25.9 sec (21.0-31.4) 08/15/18 15:00 Sodium 144 mmol/L (136-145) 08/16/18 06:35 Potassium 3.3 mmol/L (3.5-5.1) L 08/16/18 06:35 Chloride 108 mmol/L (98-107) H 08/16/18 06:35 Carbon Dioxide 30.4 mmol/L (21.0-32.0) 08/16/18 06:35 Anion Gap 5.6 mmol/L (3-11) 08/16/18 06:35 BUN 36 mg/dL (7-18) H D 08/16/18 06:35 Creatinine 1.07 mg/dL (0.55-1.02) H 08/16/18 06:35 Estimated GFR/1.73 m2 49.47 (mL/min/1.73m2) 08/16/18 06:35 Glucose 80 mg/dL (70-100) 08/16/18 06:35 Calcium 9.2 mg/dL (8.5-10.1) 08/16/18 06:35 Magnesium 1.7 mg/dL (1.8-2.4) L 08/16/18 06:35 Total Bilirubin 0.6 mg/dL (0.2-1.0) 08/15/18 15:00 Conjugated Bilirubin 0.16 mg/dL (0.00-0.20) 08/15/18 15:00 AST 32 U/L (15-37) 08/15/18 15:00 ALT 12 U/L (12-78) 08/15/18 15:00 Alkaline Phosphatase 85 U/L (46-116) 08/15/18 15:00 Troponin I 0.03 ng/mL (0.00-0.06) 08/15/18 15:00 Total Protein 5.8 g/dL (6.4-8.2) L 08/15/18 15:00 Albumin 2.7 g/dL (3.4-5.0) L 08/15/18 15:00 Lipase 95 U/L (73-393) 08/15/18 15:00 Patient ABO/Rh A Positive 08/15/18 15:00 Antibody Screen Negative 08/15/18 15:00 Objective Narrative Objective Narrative: EXAM: CT Abdomen and Pelvis Without Intravenous Contrast CLINICAL HISTORY: 77 years old, female; Pain and signs and symptoms; Nausea and vomiting; Abdominal pain; Localized; Left lower quadrant (llq); Patient HX: Llq pain, nausea, vomiting FINDINGS: Right posterior basilar consolidation likely representing atelectasis. Pneumonitis cannot be excluded. Prior cholecystectomy. Prior anterior abdominal wall hernia repair with a mesh. Inferior vena cava filter in place. Minimal calcification associated with the right kidney possibly representing nonobstructing nephrolithiasis. Renal cysts. Normal appearing solid organs. No intestinal obstruction. No obstructive uropathy. No free fluid. No free air. No inflammatory changes. IMPRESSION: Right basilar consolidation atelectasis versus pneumonia. No specific etiology identified for the patient's symptoms.
[2018-08-16 13:27] LABS: Bilirubin Negative (Negative); Blood Negative (Negative); Clarity Sl Cloudy; Glucose Negative (Negative); Ketones 15 mg/dL (Negative); Leukocyte Esterase Small (Negative); Nitrite Positive (Negative); Urobilinogen 0.2 EU/dL (Up TO 0.2); pH 5.5 (5-8)
[2018-08-16 13:39] LABS: Bacteria Moderate HPF (Negative); C & S Indicated? No/Sq. Contamination; Casts Negative LPF (Negative); Crystals Few Amorphous HPF (Negative); Epithelial Cells Moderate HPF (Negative); Mucus Negative (Negative); RBC Negative (0-2)
[2018-08-16] MEDS: POTASSIUM CHLORIDE 20 MEQ, POTASSIUM CHLORIDE 10 MEQ 30 MEQ PO (15:10)
[2018-08-16 15:32] LABS: HCT 34.6 % (36.0-46.0); HGB 11.1 g/dL (12.0-15.5)
[2018-08-16] MEDS: Sucralfate 1 GM TAB PO ×2 (16:42→22:00)
[2018-08-16] MEDS: Normal Saline 1,000 ML 75 ML IV (19:08)
[2018-08-16] MEDS: Acetaminophen 325 MG TAB PO (19:57)
[2018-08-16] MEDS: Pantoprazole 40 MG VIAL IVP (19:58)
[2018-08-16] MEDS: HYDROcodone 10/Acetaminophen 325 TAB PO (21:57)
[2018-08-16] MEDS: diphenhydrAMINE 25 MG CAP PO (21:59)
[2018-08-16 23:28] LABS: HGB 10.3 g/dL (12.0-15.5)
[2018-08-17] VITALS (29 sets, daily range): BP systolic 111–139; BP diastolic 59–81; PULSE 69–98; RESP 12–35; TEMP 36.2–36.9; O2SAT 87–96
[2018-08-17] MEDS: HYDROcodone 10/Acetaminophen 325 TAB PO ×5 (02:43→21:55)
[2018-08-17 06:14] LABS: Abs Immature Grans 0.02 k/cumm (0.0-0.09); Absolute Basophil Count 0.01 k/cumm (0.0-0.2); Absolute Eosinophil Count 0.18 k/cumm (0.0-0.7); Absolute Lymphocyte Count 2.51 k/cumm (1.2-3.4); Absolute Monocyte Count 0.79 k/cumm (0.11-0.7); Absolute Neutrophil Count 6.17 k/cumm (1.2-6.7); Basophils % 0.1; Eosinophils % 1.9; HCT 32.3 % (36.0-46.0); HGB 10.3 g/dL (12.0-15.5); Immature Grans % 0.2; Lymphocytes % 25.9; Mean Corp. HGB Concentration 31.9 g/dL (32.0-36.0); Mean Corpuscular Hemoglobin 31.8 pg (27.0-33.0); Mean Corpuscular Volume 99.7 fL (80-95); Mean Platelet Volume 10.5 fL (8.0-11.0); Monocytes % 8.2; Neutrophils % 63.7; Platelet Count 167 x1000/uL (130-400); RBC 3.24 m/cumm (4.00-5.20); RBC Distribution Width 14.5 % (11.7-14.6); White Blood Cell Count 9.68 k/cumm (4.4-10.8)
[2018-08-17 06:24] LABS: Anion Gap 6.3 mmol/L (3-11); BUN 28 mg/dL (7-18); CO2 28.7 mmol/L (21.0-32.0); CREATININE 1.04 mg/dL (0.55-1.02); Calcium 8.8 mg/dL (8.5-10.1); Chloride 107 mmol/L (98-107); Estimated GFR 51.12 (mL/min/1.73m2); Glucose 79 mg/dL (70-100); Potassium 4.2 mmol/L (3.5-5.1); Sodium 142 mmol/L (136-145)
--- NOTE | 2018-08-17 08:14 | DI.RAD_ITS ---
SYMPTOM/DIAGNOSIS: HYPOXIA PORTABLE AP CHEST AT 0810 HOURS: The heart is mildly enlarged. Lungs appear grossly clear. Some linear changes are noted in the right lung base which are nonspecific, small areas of atelectasis and/or consolidation were noted on abdominal CT of 08/15/18. Otherwise lungs are clear. IMPRESSION: No evidence of acute process.
--- NOTE | 2018-08-17 08:45 | DI.VRAD_ITS ---
EXAM: XR Chest, 1 View EXAM DATE/TIME: 08/17/2018 7:37 AM CLINICAL HISTORY: 77 years old, female; Signs and symptoms; Other: Hypoxia TECHNIQUE: XR of the chest, 1 view. COMPARISON: CR CHEST 2 VIEWS PA,LAT 03/29/2015 4:32 PM FINDINGS: Lungs: Right basilar atelectasis Opacity in the medial right upper lobe may represent atelectasis/pneumonia. Pleural space: Unremarkable. No pleural effusion. No pneumothorax. Heart/Mediastinum: Unremarkable. No cardiomegaly. Vasculature: Inferior vena cava filter adjacent to L3 and L4 Upper abdomen: Elevated right hemidiaphragm Surgical clips in the right abdomen Bones/joints: Degenerative changes in the glenohumeral joints IMPRESSION: Opacity in the medial right upper lobe may represent atelectasis/pneumonia. Dictated and Authenticated by: Flavio Evans MD. Ordering:TG PANIAGUA MD
[2018-08-17] MEDS: Pantoprazole 40 MG VIAL IVP ×2 (08:56→20:29)
[2018-08-17] MEDS: Sucralfate 1 GM TAB PO ×4 (08:56→21:55)
[2018-08-17] MEDS: Normal Saline Flush 10 ML SYR IVP ×2 (08:57→20:38)
[2018-08-17] MEDS: Normal Saline 1,000 ML 75 ML IV (10:01)
[2018-08-17] MEDS: LEVOFLOXACIN 750 MG/150 ML BAG 150 MG IVPB (12:38)
--- NOTE | 2018-08-17 12:51 | PT.INTREAT ---
Date of service: 08/17/18 Time of Service: 11:00 PT Notes Inpatient Physical Therapy Treatment Note Date: 08/17/18 SUBJECTIVE: Pt reports that she would like to sit up. She c/o being too warm laying in bed. OBJECTIVE: [] BED MOBILITY/TRANSFERS Rolling L/R:S Supine-sit:min assist of 1/ CGA Sit-supine: min assist of 1 THEREX: sat at EOB per nsg. x approx 10 min. Performed a global LE strengthening routine, see flowsheet for details. ASSESSMENT: tolerated session well. Seems a little confused at times, but puts forth good effort with ex. PLAN: continue to progress her strength and functional mobility as per PT POC. TREATMENT CODE/TIME:20 min TPx1.
--- NOTE | 2018-08-17 13:57 | W.PM.PROGNOT ---
Assessment and Plan (1) Upper GI bleeding: Current visit: Yes Status: Acute Likely UGIB by history. Apixaban on hold. Discontinued PPI gtt and changed to BID IV Dosing, with addition of oral Sucralfate. Tolerating diet - advance today. Continue to trend H/H'. Discontinue IVFs - noted history of 'CHF' but no evidence of prior ECHO, and not currently volume overloaded. No evidence of diverticulitis or other LLQ pathology by CT to explain prior complaint of lower abdominal pain. Of note, patient has a history of both a hemorrhagic CVA and now GI Bleed, with prior recurrent DVT's and PE's by history. Will discuss with PCP tomorrow to determine risk vs. benefit of continuation of active anticoagulation in this patient. (2) LLQ pain: Current visit: Yes Status: Acute CT abdomen/pelvis without evidence of pathology, including diverticulitis. Currently with pain appearing to be resolved. Continue to monitor. (3) Hx of deep vein thrombosis and pulmonary emboli 2006: Current visit: Yes Status: Chronic As above. (4) H/O: CVA (cerebrovascular accident): Current visit: No Status: Chronic Hemorrhagic CVA in the past while on anticoagulation. (5) Essential hypertension: Current visit: Yes Status: Chronic Will hold home antihypertensives at this time and monitor blood pressure - CCB, BB, and MOIRA-I all on hold. Current blood pressure very reasonable. (6) DVT prophylaxis: Current visit: Yes Status: Acute SCDs. (7) UTI (urinary tract infection): Current visit: Yes Status: Acute Evidence of UTI by urinalysis yesterday. Patient also with infiltrate on CXR that is either atelectasis or infectious in etiology - will initiate Levofloxacin for both pulmonary and urinary coverage while awaiting Urine Culture results. Please note that patient was admitted following hematemesis - consider aspiration pneumonitis if symptoms worsen. Currently with mild hypoxia. (8) Discharge planning issues: Current visit: Yes Status: Acute DNR/DNI per patient wishes. Subjective Interval history since last seen: 77 year old female with a past medical history significant for multiple DVT's/PE's s/p IVC filter on anticoagulation with Apixaban, as well as a history of hemorrhagic CVA in 2014 presented to [facility] with reported witnessed episode of hematemesis. Patient's symptoms started 2 days prior to admission, and included LLQ pain in addition to nausea, vomiting and watery diarrhea. This morning the patient's hemoglobin remains mildly low but stable. She reports improvement in her overall symptoms. Evidence of a UTI was found by urinalysis, and a CXR checked secondary to hypoxia overnight revealed evidence for infiltrate vs. atelectasis. No other events reported - remains afebrile. Exam Narrative Exam Narrative: General: Patient appears comfortable, AAOX3, NAD Neck: Supple CV: Regular, No longer tachycardic, S1S2, No rubs, murmurs, or gallops. Pulmonary: Clear to auscultation bilaterally with exception of mildly decreased area of breath sounds on right lower/mid lung zone, no crackles, wheezing, or rhonchi Abdomen: + Bowel Sounds, soft, no further epigastric tenderness, nondistended Vascular: No lower extremity edema on right. LLE BKA noted. Psych: Normal mood and affect. Objective Objective Clinical Data: Abnormal lab results 08/16/18 08/16/18 08/17/18 Range/Units 15:15 23:00 05:59 RBC (4.00-5.20) m/cumm Hgb 11.1 L 10.3 L (12.0-15.5) g/dL Hct 34.6 L 32.0 L (36.0-46.0) % MCV (80-95) fL MCHC (32.0-36.0) g/dL Absolute Monocytes (0.11-0.7) k/cumm BUN 28 H (7-18) mg/dL Creatinine 1.04 H (0.55-1.02) mg/dL 08/17/18 Range/Units 05:59 RBC 3.24 L (4.00-5.20) m/cumm Hgb 10.3 L (12.0-15.5) g/dL Hct 32.3 L (36.0-46.0) % MCV 99.7 H (80-95) fL MCHC 31.9 L (32.0-36.0) g/dL Absolute Monocytes 0.79 H (0.11-0.7) k/cumm BUN (7-18) mg/dL Creatinine (0.55-1.02) mg/dL Vital Signs Temperature 36.2 C L 08/17/18 11:49 Temperature Source Tympanic 08/17/18 11:49 Pulse 82 08/17/18 12:01 Pulse Rhythm Regular 08/17/18 08:09 Pulse 98 H 08/17/18 12:01 Respiratory Rate 19 08/17/18 12:01 Respiratory Effort 08/17/18 08:09 Respiratory Depth Normal 08/17/18 08:09 Respiratory Pattern Normal 08/17/18 08:09 Blood Pressure 121/60 08/17/18 12:01 Blood Pressure Mean 71 08/17/18 12:01 Blood Pressure Position Supine 08/17/18 00:05 Pulse Oximetry 89 L 08/17/18 12:01 Oxygen Delivery Method Room Air 08/17/18 11:49 Oxygen Flow Rate 0 08/17/18 11:49 Pain Level 0 08/17/18 11:49 Comment 08/17/18 08:10 Intake & Output 08/16/18 08/17/18 08/17/18 23:59 11:59 23:59 Intake Total 1050.833 / 4319.867 3922.333 / 1848.333 296.25 / 296.25 Output Total 365 / 365 645 / 645 Balance 685.833 / 771.011 2977.333 / 1203.333 296.25 / 296.25 Weight 64 kg Intake: IV 840.833 / 120.504 6878.333 / 1038.333 196.25 / 196.25 Oral 210 / 210 810 / 810 100 / 100 Output: Urine 365 / 365 645 / 645 Other: Urine Color Yellow Yellow Urine Appearance Clear Cloudy Urine Odor Normal None Comment Pt had been on a bed hemphill but voided over the hemphill, none to measure. Voiding Methods Bedpan Bedpan Incontinent Laboratory Results WBC 9.68 k/cumm (4.4-10.8) 08/17/18 05:59 RBC 3.24 m/cumm (4.00-5.20) L 08/17/18 05:59 Hgb 10.3 g/dL (12.0-15.5) L 08/17/18 05:59 Hct 32.3 % (36.0-46.0) L 08/17/18 05:59 MCV 99.7 fL (80-95) H 08/17/18 05:59 MCH 31.8 pg (27.0-33.0) 08/17/18 05:59 MCHC 31.9 g/dL (32.0-36.0) L 08/17/18 05:59 RDW 14.5 % (11.7-14.6) 08/17/18 05:59 Plt Count 167 x1000/uL (130-400) 08/17/18 05:59 MPV 10.5 fL (8.0-11.0) 08/17/18 05:59 Immature Gran % 0.2 08/17/18 05:59 Neutrophils % 63.7 08/17/18 05:59 Lymphocytes % 25.9 08/17/18 05:59 Monocytes % 8.2 08/17/18 05:59 Eosinophils % 1.9 08/17/18 05:59 Basophils % 0.1 08/17/18 05:59 Absolute Neutrophils 6.17 k/cumm (1.2-6.7) 08/17/18 05:59 Absolute Lymphocytes 2.51 k/cumm (1.2-3.4) 08/17/18 05:59 Absolute Monocytes 0.79 k/cumm (0.11-0.7) H 08/17/18 05:59 Absolute Eosinophils 0.18 k/cumm (0.0-0.7) 08/17/18 05:59 Absolute Basophils 0.01 k/cumm (0.0-0.2) 08/17/18 05:59 PT 11.7 sec (9.3-10.8) H 08/15/18 15:00 INR 1.2 (1.0-3.5) 08/15/18 15:00 APTT 25.9 sec (21.0-31.4) 08/15/18 15:00 Sodium 142 mmol/L (136-145) 08/17/18 05:59 Potassium 4.2 mmol/L (3.5-5.1) D 08/17/18 05:59 Chloride 107 mmol/L (98-107) 08/17/18 05:59 Carbon Dioxide 28.7 mmol/L (21.0-32.0) 08/17/18 05:59 Anion Gap 6.3 mmol/L (3-11) 08/17/18 05:59 BUN 28 mg/dL (7-18) H 08/17/18 05:59 Creatinine 1.04 mg/dL (0.55-1.02) H 08/17/18 05:59 Estimated GFR/1.73 m2 51.12 (mL/min/1.73m2) 08/17/18 05:59 Glucose 79 mg/dL (70-100) 08/17/18 05:59 Calcium 8.8 mg/dL (8.5-10.1) 08/17/18 05:59 Magnesium 1.7 mg/dL (1.8-2.4) L 08/16/18 06:35 Total Bilirubin 0.6 mg/dL (0.2-1.0) 08/15/18 15:00 Conjugated Bilirubin 0.16 mg/dL (0.00-0.20) 08/15/18 15:00 AST 32 U/L (15-37) 08/15/18 15:00 ALT 12 U/L (12-78) 08/15/18 15:00 Alkaline Phosphatase 85 U/L (46-116) 08/15/18 15:00 Troponin I 0.03 ng/mL (0.00-0.06) 08/15/18 15:00 Total Protein 5.8 g/dL (6.4-8.2) L 08/15/18 15:00 Albumin 2.7 g/dL (3.4-5.0) L 08/15/18 15:00 Lipase 95 U/L (73-393) 08/15/18 15:00 Urine Color Yellow (Yellow) 08/16/18 11:55 Urine Clarity Sl cloudy 08/16/18 11:55 Urine pH 5.5 (5-8) 08/16/18 11:55 Ur Specific [place] 1.020 (1.005-1.025) 08/16/18 11:55 Urine Protein Negative mg/dL (Negative) 08/16/18 11:55 Urine Ketones 15 mg/dL (Negative) H 08/16/18 11:55 Urine Blood Negative (Negative) 08/16/18 11:55 Urine Nitrite Positive (Negative) H 08/16/18 11:55 Urine Bilirubin Negative (Negative) 08/16/18 11:55 Urine Urobilinogen 0.2 EU/dL (Up TO 0.2) 08/16/18 11:55 Ur Leukocyte Esterase Small (Negative) H 08/16/18 11:55 Urine RBC Negative (0-2) 08/16/18 11:55 Urine WBC 10-20 HPF (0-5) 08/16/18 11:55 Ur Epithelial Cells Moderate HPF (Negative) 08/16/18 11:55 Urine Crystals Few amorphous HPF (Negative) 08/16/18 11:55 Urine Bacteria Moderate HPF (Negative) 08/16/18 11:55 Urine Casts Negative LPF (Negative) 08/16/18 11:55 Urine Mucus Negative (Negative) 08/16/18 11:55 Ur Culture Indicated? No/sq. contamination 08/16/18 11:55 Urine Glucose Negative mg/dL (Negative) 08/16/18 11:55 Patient ABO/Rh A Positive 08/15/18 15:00 Antibody Screen Negative 08/15/18 15:00 Objective Narrative Objective Narrative: EXAM: XR Chest, 1 View EXAM DATE/TIME: 08/17/2018 7:37 AM CLINICAL HISTORY: 77 years old, female; Signs and symptoms; Other: Hypoxia TECHNIQUE: XR of the chest, 1 view. COMPARISON: CR CHEST 2 VIEWS PA,LAT 03/29/2015 4:32 PM FINDINGS: Lungs: Right basilar atelectasis Opacity in the medial right upper lobe may represent atelectasis/pneumonia. Pleural space: Unremarkable. No pleural effusion. No pneumothorax. Heart/Mediastinum: Unremarkable. No cardiomegaly. Vasculature: Inferior vena cava filter adjacent to L3 and L4 Upper abdomen: Elevated right hemidiaphragm Surgical clips in the right abdomen Bones/joints: Degenerative changes in the glenohumeral joints IMPRESSION: Opacity in the medial right upper lobe may represent atelectasis/pneumonia.
[2018-08-17 15:10] LABS: HCT 32.4 % (36.0-46.0); HGB 10.2 g/dL (12.0-15.5)
--- NOTE | 2018-08-17 17:08 | PDOC.CMPRO ---
- If Service Date Differs Date of service: 08/17/18 Time of Service: 17:08 Care Management Progress Note S/O: Fay is more alert today and engaged in conversation. She states she is doing well at home. 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 She states she transitioned home with home health services from facility and resumed [facility]. She would like to go home today but understands she should be at [facility] one more day. Continue to monitor her labs, her hgb has had little change since yesterday. Provider will follow up with primary care r/t halfway need for Eliquis and recommendations. Anticipate she will return home on Saturday with her son and spouse. A:Fay is a 77 year old female admitted with GI bleed. 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 She will resume [facility] services. CM will continue to provide support discharge planning and disposition. Fay will have her son Cali contact [facility] to cancel her appointment for Saturday.
--- NOTE | 2018-08-17 17:11 | CMPROGNOTE_ITS ---
- If Service Date Differs Date of service: 08/17/18 Time of Service: 17:08 Care Management Progress Note S/O: Fay is more alert today and engaged in conversation. She states she is doing well at home. 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 She states she transitioned home with home health services from facility and resumed [facility]. She would like to go home today but understands she should be at [facility] one more day. Continue to monitor her labs, her hgb has had little change since yesterday. Provider will follow up with primary care r/t halfway need for Eliquis and recommendations. Anticipate she will return home on Saturday with her son and spouse. A:Fay is a 77 year old female admitted with GI bleed. 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 She will resume [facility] services. CM will continue to provide support discharge planning and disposition. Fay will have her son Cali contact [facility] to cancel her appointment for Saturday.
[2018-08-17] MEDS: Gabapentin 400 MG CAP PO (20:28)
[2018-08-17] MEDS: rOPINIRole 0.5 MG TAB 1 MG PO (21:57)
[2018-08-18 00:07] VITALS: BP 135/78; PULSE 83; RESP 16; TEMP 36.9; O2SAT 95
[2018-08-18] MEDS: HYDROcodone 10/Acetaminophen 325 TAB PO ×2 (02:18→06:22)
[2018-08-18 03:50] VITALS: BP 122/69; PULSE 78; RESP 18; TEMP 36.7; O2SAT 97
[2018-08-18 07:01] VITALS: PULSE 77
[2018-08-18 07:26] LABS: Abs Immature Grans 0.02 k/cumm (0.0-0.09); Absolute Basophil Count 0.01 k/cumm (0.0-0.2); Absolute Eosinophil Count 0.26 k/cumm (0.0-0.7); Absolute Lymphocyte Count 1.86 k/cumm (1.2-3.4); Absolute Neutrophil Count 5.05 k/cumm (1.2-6.7); Basophils % 0.1; Eosinophils % 3.2; HCT 32.8 % (36.0-46.0); HGB 10.4 g/dL (12.0-15.5); Immature Grans % 0.2; Mean Corp. HGB Concentration 31.7 g/dL (32.0-36.0); Mean Corpuscular Hemoglobin 31.6 pg (27.0-33.0); Mean Corpuscular Volume 99.7 fL (80-95); Mean Platelet Volume 10.6 fL (8.0-11.0); Monocytes % 11.1; Neutrophils % 62.4; Platelet Count 168 x1000/uL (130-400); RBC 3.29 m/cumm (4.00-5.20); RBC Distribution Width 14.2 % (11.7-14.6)
[2018-08-18 07:44] LABS: Anion Gap 4.1 mmol/L (3-11); BUN 23 mg/dL (7-18); CO2 30.9 mmol/L (21.0-32.0); CREATININE 1.09 mg/dL (0.55-1.02); Calcium 8.5 mg/dL (8.5-10.1); Chloride 107 mmol/L (98-107); Estimated GFR 48.42 (mL/min/1.73m2); Glucose 111 mg/dL (70-100); Potassium 3.8 mmol/L (3.5-5.1); Sodium 142 mmol/L (136-145)
[2018-08-18] MEDS: Normal Saline Flush 10 ML SYR IVP (08:08)
[2018-08-18] MEDS: Gabapentin 400 MG CAP PO (08:08)
[2018-08-18] MEDS: Sucralfate 1 GM TAB PO ×2 (08:08→12:03)
[2018-08-18] MEDS: Pantoprazole 40 MG VIAL IVP (08:09)
[2018-08-18 10:36] VITALS: PULSE 95
--- NOTE | 2018-08-18 11:37 | PT.INTREAT ---
Date of service: 08/18/18 Time of Service: 11:37 PT Notes Inpatient Physical Therapy Treatment Note Date: 08/18/18 PRECAUTIONS: Fall SUBJECTIVE: Fay states that she wants to go home today. She feels she is at a reasonable, functional level to return home. OBJECTIVE: PAIN: No c/o pain BED MOBILITY/TRANSFERS Supine-sit: SBA with HOB at 40 degrees Sit-stand: Min A Stand-sit: Mod A Bed-Chair: Min A GAIT Assistive Device: FWW Weight bearing: Full on R Assist: Min A Distance: 3 shuffle steps THEREX: Patient completed a B LE strengthening program, in a seated position, as per flow sheet. ASSESSMENT: Patient would benefit from continued transfer training, as well as LE strengthening for improved ability to perform functional daily tasks. PLAN: Continue with PT's POC TREATMENT CODE/TIME: 30 minutes; TA/TP
--- NOTE | 2018-08-18 11:45 | PT.INDS ---
Date of service: 08/18/18 Time of Service: 11:45 PT Notes Inpatient Physical Therapy Discharge Summary Date: 08/18/18 Dates of Service: 08/16/18-08/18/18 SUBJECTIVE: NT OBJECTIVE: 08/16/18-08/18/18 BED MOBILITY/TRANSFERS: Supine-sit : SBA Sit-supine : minAx1 Sit-stand : minAx1 Stand-sit :modAx1 Bed-Chair : minAx1 GAIT: minax1 with FWW 3steps BALANCE: Static sitting: normal Dynamic sitting: normal Static standing: poor Dynamic standing: poor ASSESSMENT: Pt was seen for 3 PT visits. Progressed from max A bed transfers to SBA, from maxAx2 standing transfers to minAx1, from unable to gait train to minAx1 with FWW 3 steps, sitting balance improved from poor to normal. Pt is being discharged to home setting, home PT is recommended for continued strengthening and mobility training. GOALS 1. Supine to sit: Min assist x1 2. Sit to supine: Mod assist x1 3. Sit to stand: Mod assist x1 4. Stand to sit: Mod assist x1 5. Bed to chair: Stand pivot with mod assist of 1 6. Chair to bed: Stand pivot with mod assist of 1 Pt met goals # 1, 2, 3, 5 DISCHARGE: home with home PT Functional reporting: Mobility: Walking moving around. projected goal status: GP?[id number], discharge status GP [id number] Tamra Mendez PT
--- NOTE | 2018-08-18 12:32 | CMDISCH_ITS ---
- If Service Date Differs Date of service: 08/18/18 Time of Service: 12:32 LACE Index Scoring Tool - Questions: Length of Stay (in days): 3 Acuity (Admit via E.D.?): Yes Comorbidities: Diabetes w/o Complication E.D. Visits: 2 - Answers: Total Score: 9 Risk of Readmission: Low Risk Care Management Discharge Reason for Hospitalization: GI bleed Discharge Plan: Fay will be discharged today her son Cali is going to transport her home. She will have referral for [facility] makenzie sage, PT and OT. She will not restart her Eliquis and she will follow up with for instructions on when to restart anticoagulation. Fay will follow up with [facility] and scheduled r/t prosthesis. Patient/Family Education Needs: Discharge education, limitations and follow up plan of care. Ask me three discussion and self management. Services Needed at Discharge: Home Health Care Services, Occupational Therapy, Physical Therapy
--- NOTE | 2018-08-18 12:50 | DSE_ITS ---
Date of service: 08/18/18 Time of Service: 12:33 DS: Diagnosis Discharge Diagnosis (1) Upper GI bleeding: Status: Acute (2) Hx of deep vein thrombosis and pulmonary emboli 2006: Status: Chronic (3) H/O: CVA (cerebrovascular accident): Status: Chronic (4) UTI (urinary tract infection): Status: Acute (5) Discharge planning issues: Status: Acute Discharge Plan Disposition Patient Disposition: HOME Condition: Stable Discharge Details Reason For Visit: UPPER GI BLEED WHILE ON ANTICOAGULATION WITH ELIQU Admit Date/Time: 08/15/18 17:25 Admit Provider: Daisy Manning Attending Provider: Daisy Manning Primary Care Provider: Randal Sainz Hospital Course Hospital Course: CC: GI Bleed HPI: 77 year old female with a past medical history significant for multiple DVT's/PE 's s/p IVC filter on anticoagulation with Apixaban, as well as a history of hemorrhagic CVA in 2014 presented to [facility] with reported witnessed episode of hematemesis. Patient's symptoms started 2 days prior to admission, and included LLQ pain in addition to nausea, vomiting and watery diarrhea. This morning the patient's hemoglobin remains mildly low but stable. She is asymptomatic and is again requesting to go home. There was evidence of a UTI by urinalysis, and she remains on antibiotic therapy. No other events reported - remains afebrile. Hospital Course: (1) Upper GI bleeding: Likely UGIB by history. Apixaban continues to be on hold. Initially maintained on PPI gtt and changed to BID IV Dosing, with addition of oral Sucralfate. Tolerating diet - advance previously, although with mild nausea this morning that resolved without intervention. Hemoglobin with minimal drop only and continued stability.No evidence of diverticulitis or other LLQ pathology by CT to explain prior complaint of lower abdominal pain. Of note, patient has a history of both a hemorrhagic CVA and now GI Bleed, with prior recurrent DVT's and PE's by history. Discussed with patient's PCP Dr. Randal Sainz, with decision to hold off anticoagulation following discharge, and to further discuss risks vs. benefits of anticoagulation as an outpatient. Will follow-up within 1 week of dishcarge. (2) LLQ pain: Current visit: Yes Status: Acute CT abdomen/pelvis without evidence of pathology, including diverticulitis. Currently with pain appearing to be resolved. Continue to monitor. (3) Hx of deep vein thrombosis and pulmonary emboli 2005: Plan as above. (4) H/O: CVA (cerebrovascular accident): Hemorrhagic CVA in the past while on anticoagulation. (5) Essential hypertension: Patient's home antihypertensives were held, including her CCB, BB, and MOIRA-I, with very reasonable blood pressures in the setting of her anemia. Current blood pressure very reasonable. Will resume her low dose BB at time of discharge (6) UTI (urinary tract infection): Evidence of UTI by urinalysis - unfortunately sample was not reflexed to culture. Patient also with infiltrate on CXR that was interpreted as either atelectasis or infectious in etiology by virtual radiology - currently on day 2 of renally dosed Levofloxacin for both pulmonary and urinary coverage. Please note that patient was admitted following hematemesis - consider aspiration pneumonitis if symptoms worsen. No further hypoxia since initiation of Fluoroquinolone therapy. (8) Discharge planning issues: DNR/DNI per patient wishes. Discharging home today with Home PT/OT. Home Meds and New Rx's Prescriptions: New sucralfate 1 gram Tablet 1 g PO AC & HS 30 Days Qty: 120 RF: 0 pantoprazole [Protonix] 40 mg tablet,delayed release (DR/EC) 40 mg PO BID Qty: 60 RF: 0 levofloxacin 750 mg tablet 750 mg PO Q48H Qty: 4 RF: 0 Continue ropinirole 0.5 MG tablet 1 mg PO HS Qty: 60 RF: 0 gabapentin 300 MG capsule 400 mg PO TID RF: 0 carvedilol 3.125 MG tablet 3.125 mg PO BID RF: 0 cyanocobalamin (vitamin B-12) [Vitamin B-12] 500 MCG tablet 2,000 mcg PO QAM RF: 0 docusate sodium [Stool Softener] 50 MG capsule 1 cap PO BID PRN PRNQty: 0 RF: 0 acetaminophen 325 mg Tablet 650 mg PO Q4H PRNRF: 0 magnesium hydroxide [Milk of Magnesia] 400 mg/5 mL Suspension 30 ml PO PRN PRNRF: 0 bisacodyl 10 mg Suppository 1 ea ID DIRECTED RF: 0 polyethylene glycol 3350 17 gram Powder In Packet 17 g PO QAM RF: 0 Lactobacillus acidophilus [Acidophilus] Capsule 1 cap PO BID RF: 0 Discontinued methylprednisolone acetate [Depo-Medrol] 80 mg/mL suspension 80 mg IU ONCE Qty: 1 RF: 0 omeprazole 20 MG capsule,delayed release(DR/EC) 20 mg PO DAILY PRNRF: 0 apixaban [Eliquis] 5 MG tablet 5 mg PO BID RF: 0 potassium chloride [Klor-Con M20] 20 MEQ tablet,ER particles/crystals 10 meq PO BID RF: 0 cetirizine 10 mg Tablet 10 mg PO QAM RF: 0 lisinopril 20 mg Tablet 20 mg PO QAM RF: 0 chlorthalidone 25 mg Tablet 25 mg PO QAM RF: 0 amlodipine 10 MG tablet 5 mg PO DAILY RF: 0 amoxicillin-pot clavulanate 1 TAB tablet 1 tab PO BID 6 Days Qty: 13 RF: 0 No Action hydrocodone-acetaminophen 1 TAB tablet 1 tab PO .Q4HRS PRN PRNQty: 30 RF: 0 Discharge Instructions Instructions: Gastrointestinal Bleeding (DC), Gastrointestinal Bleeding (GEN) Additional Instructions: Please see your discharge medication list and review it carefully. You have new medications to take, and some old medications to stop. Dr. Sainz will tell you which medications to keep taking and which to stop after you see him. Referrals: Randal Sainz MD [Primary Care Provider] - 08/27/18 2:05 pm Activity:: No Strenuous Activity Equipment/Supplies:: No Equipment Needed Diet:: Heart Healthy Discharge Orders Discharge Orders: Discharge Order (Routine); Ordered 08/18/18 Ordered By: Aneesh Meier Other Ambulatory Orders: Complete Blood Count No Diff (Routine) Timeframe: 3 Days Location: Determined by Patient Ordered By: Aneesh Meier Discharge Data Discharge Date/Time-TO BE ENTERED AT DEPARTURE: 08/18/18 13:05 Exam Narrative Exam Narrative: General: Patient appears comfortable, AAOX3, NAD Neck: Supple CV: Regular, No longer tachycardic, S1S2, No rubs, murmurs, or gallops. Pulmonary: Clear to auscultation bilaterally with exception of mildly decreased area of breath sounds on right lower/mid lung zone, no crackles, wheezing, or rhonchi Abdomen: + Bowel Sounds, soft, no further epigastric tenderness, nondistended Vascular: No lower extremity edema on right. LLE BKA noted. Psych: Normal mood and affect. DS: Data Vitals/I&O Vitals and I&O: Vital Signs Temperature 36.7 C 08/18/18 03:50 Temperature Source Tympanic 08/18/18 03:50 Pulse 95 H 08/18/18 10:36 Pulse Rhythm Irregular 08/18/18 08:00 Pulse 98 H 08/17/18 17:00 Respiratory Rate 18 08/18/18 03:50 Respiratory Effort 08/18/18 08:00 Respiratory Depth Normal 08/18/18 08:00 Respiratory Pattern Normal 08/18/18 08:00 Blood Pressure 122/69 08/18/18 03:50 Blood Pressure Mean 84 08/17/18 16:59 Blood Pressure Position Supine 08/17/18 00:05 Pulse Oximetry 97 08/18/18 03:50 Oxygen Delivery Method Room Air 08/18/18 03:50 Oxygen Flow Rate 0 08/18/18 03:50 Pain Level 8 08/18/18 06:22 Comment 08/18/18 03:50 Intake & Output 08/17/18 08/18/18 08/18/18 23:59 11:59 23:59 Intake Total 466.25 / 466.25 350 / 350 Output Total 425 / 425 600 / 600 Balance 41.25 / 41.25 -250 / -250 Weight 65.8 kg Intake: IV 366.25 / 366.25 Oral 100 / 100 350 / 350 Output: Urine 425 / 425 600 / 600 Other: Urine Color Yellow Yellow Urine Appearance Clear Clear Urine Odor None Normal Voiding Methods Toilet Bedpan Completed studies during hospitalization [Text1]: Exam(s) EXAM: CT Abdomen and Pelvis Without Intravenous Contrast CLINICAL HISTORY: 77 years old, female; Pain and signs and symptoms; Nausea and vomiting; Abdominal pain; Localized; Left lower quadrant (llq); Patient HX: Llq pain, nausea, vomiting TECHNIQUE: Axial computed tomography images of the abdomen and pelvis without intravenous contrast. COMPARISON: CT ABD/PELVIS WO W CONTRAST 07/23/2013 11:34 AM FINDINGS: Right posterior basilar consolidation likely representing atelectasis. Pneumonitis cannot be excluded. Prior cholecystectomy. Prior anterior abdominal wall hernia repair with a mesh. Inferior vena cava filter in place. Minimal calcification associated with the right kidney possibly representing nonobstructing nephrolithiasis. Renal cysts. Normal appearing solid organs. No intestinal obstruction. No obstructive uropathy. No free fluid. No free air. No inflammatory changes. IMPRESSION: Right basilar consolidation atelectasis versus pneumonia. No specific etiology identified for the patient's symptoms. Exam(s) a RAD:XR portable chest AP SYMPTOM/DIAGNOSIS: HYPOXIA PORTABLE AP CHEST AT 0810 HOURS: The heart is mildly enlarged. Lungs appear grossly clear. Some linear changes are noted in the right lung base which are nonspecific, small areas of atelectasis and/or consolidation were noted on abdominal CT of 08/15/18. Otherwise lungs are clear. IMPRESSION: No evidence of acute process. Labs on day of discharge: Labs from last 24 hours 08/18/18 08/18/18 08/17/18 07:08 07:08 14:45 WBC 8.10 RBC 3.29 L Hgb 10.4 L 10.2 L Hct 32.8 L 32.4 L MCV 99.7 H MCH 31.6 MCHC 31.7 L RDW 14.2 Plt Count 168 MPV 10.6 Immature Gran % 0.2 Neutrophils % 62.4 Lymphocytes % 23.0 Monocytes % 11.1 Eosinophils % 3.2 Basophils % 0.1 Absolute Neutrophils 5.05 Absolute Lymphocytes 1.86 Absolute Monocytes 0.90 H Absolute Eosinophils 0.26 Absolute Basophils 0.01 Sodium 142 Potassium 3.8 Chloride 107 Carbon Dioxide 30.9 Anion Gap 4.1 BUN 23 H Creatinine 1.09 H Estimated GFR/1.73 m2 48.42 Glucose 111 H Calcium 8.5
--- NOTE | 2018-08-18 13:09 | PDOC.HHF2F ---
1. Encounter Date and Reason I certify that SAADIA GAN was seen by Aneesh Meier on 08/18/18 and that I had a [id number] encounter with this patient that meets the physician face to face encounter requirements. 2. Clinical Findings Supporting Skilled Need and Homebound Status I certify that home health services are medically necessary, include either intermittent half-way and/or physical/speech therapy, and that this patient is homebound in that absences from the home require considerable and taxing effort and are infrequent or of short duration, or are attributable to the need to receive medical care. [X] (a) Attached documentation from encounter provides clinical findings supporting skilled need and homebound status (including what assistance patient requires to leave the home). The encounter with the patient was in whole, or in part, for the following medical condition, which is the primary reason for home health care: UPPER GI BLEED WHILE ON ANTICOAGULATION WITH [facility]IQU Long Term: Physical Therapy: Recent Hospitalization for GI Bleed, patient with unilateral LE Below the knee amputation. Candidate for Home PT/OT per inpatient evalaution. Speech Therapy: Homebound: 3. Certification and Authentication I certify that I composed the above information based on my clinical judgement relating to this patient's medical condition and, if applicable, clinical findings communicated to me by the NPP or inpatient physician who performed the Home Health Referral. All further orders will be obtained through (Community Based Physician - PCP)
--- NOTE | 2018-08-18 13:12 | HHF2F_ITS ---
1. Encounter Date and Reason I certify that SAADIA GAN was seen by Aneesh Meier on 08/18/18 and that I had a [id number] encounter with this patient that meets the physician face to face encounter requirements. 2. Clinical Findings Supporting Skilled Need and Homebound Status I certify that home health services are medically necessary, include either intermittent long-term and/or physical/speech therapy, and that this patient is homebound in that absences from the home require considerable and taxing effort and are infrequent or of short duration, or are attributable to the need to receive medical care. [X] (a) Attached documentation from encounter provides clinical findings supporting skilled need and homebound status (including what assistance patient requires to leave the home). The encounter with the patient was in whole, or in part, for the following medical condition, which is the primary reason for home health care: UPPER GI BLEED WHILE ON ANTICOAGULATION WITH ELIQU Detention: Physical Therapy: Recent Hospitalization for GI Bleed, patient with unilateral LE Below the knee amputation. Candidate for Home PT/OT per inpatient evalaution. Speech Therapy: Homebound: 3. Certification and Authentication I certify that I composed the above information based on my clinical judgement relating to this patient's medical condition and, if applicable, clinical findings communicated to me by the NPP or inpatient physician who performed the Home Health Referral. All further orders will be obtained through (Community Based Physician - PCP)
== END 2018-08-18 13:40 | disposition home or self-care (01) | DRG 378 ==
LOC: ER 16:23 → ICU 08-16 05:33 → MS 08-18 12:50 → ICU 09-03 14:54
PROVIDERS: Admitting Provider Internal Medicine; Emergency Provider Emergency Medicine; PCP Internal Medicine; Visit Provider Internal Medicine
DX: K92.2 Gastrointestinal hemorrhage, unspecified (principal); N39.0 Urinary tract infection, site not specified; D68.32 Hemorrhagic disorder due to extrinsic circulating anticoagulants; K92.0 Hematemesis; Z86.711 Personal history of pulmonary embolism; Z86.718 Personal history of other venous thrombosis and embolism; Z86.73 Personal history of transient ischemic attack (TIA), and cerebral infarction without residual deficits; Z79.01 Long term (current) use of anticoagulants; R10.32 Left lower quadrant pain; Z66 Do not resuscitate; K27.7 Chronic peptic ulcer, site unspecified, without hemorrhage or perforation; I10 Essential (primary) hypertension; Z99.3 Dependence on wheelchair; E66.01 Morbid (severe) obesity due to excess calories; Z68.28 Body mass index [BMI] 28.0-28.9, adult; E78.2 Mixed hyperlipidemia; G25.81 Restless legs syndrome; M35.3 Polymyalgia rheumatica; E03.9 Hypothyroidism, unspecified
CPT/HCPCS: 36415; 80048; 80053; 80076; 83690; 85027; 86850; 86900; 86901; 93005; 96365; 96375; 96376; 97110; 97163; 97530; 99222; 99232; 99233; 99239; 99285; 71045; 74176; 81003; 81015; 83735; 84484; 85014; 85018; 85025; 85610; 85730; 93010; J0696; J0780; J1956; J2405; J3490

== ENCOUNTER 2018-08-21 11:45 | Outpatient (REF) | payer MEDICARE, MEDICAID, SELFPAY ==
[2018-08-21 16:59] LABS: Abs Immature Grans 0.02 k/cumm (0.0-0.09); Absolute Basophil Count 0.02 k/cumm (0.0-0.2); Absolute Eosinophil Count 0.26 k/cumm (0.0-0.7); Basophils % 0.3; Eosinophils % 4.3; HGB 11.9 g/dL (12.0-15.5); Immature Grans % 0.3; Mean Corp. HGB Concentration 32.2 g/dL (32.0-36.0); Mean Corpuscular Hemoglobin 31.9 pg (27.0-33.0); Mean Corpuscular Volume 99.2 fL (80-95); Mean Platelet Volume 11.1 fL (8.0-11.0); Monocytes % 13.3; Neutrophils % 51.8; Platelet Count 217 x1000/uL (130-400); RBC 3.73 m/cumm (4.00-5.20); RBC Distribution Width 15.2 % (11.7-14.6)
== END 2018-08-21 12:05 ==
LOC: NCHCN 11:45
PROVIDERS: PCP Internal Medicine; Visit Provider Internal Medicine
DX: D53.9 Nutritional anemia, unspecified (principal)
CPT/HCPCS: 85025

== ENCOUNTER 2018-08-27 15:41 | Outpatient (CLI) | payer MEDICARE, MEDICAID, SELFPAY ==
--- NOTE | 2018-08-27 16:18 | DI.RAD_ITS ---
SYMPTOMS/DIAGNOSIS: PAIN IN FEMUR, M79.659; RIGHT HIP JOINT PAIN, M25.551 RIGHT FEMUR: Five views were obtained. There are mild degenerative changes at the hip. No other significant bony abnormality seen. RIGHT HIP AND PELVIS: Two views of the hip and pelvis was obtained. There are mild degenerative changes of the hip. There are surgical coils, which appear to be associated with a previous hernia repair. There is an IVC filter in place. Mild degenerative changes of both hips are noted. 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
== END 2018-08-27 16:01 ==
PROVIDERS: PCP Internal Medicine; Visit Provider Family Medicine
DX: M25.551 Pain in right hip (principal); M79.651 Pain in right thigh; M16.11 Unilateral primary osteoarthritis, right hip
CPT/HCPCS: 73552; 73502

== ENCOUNTER 2018-09-18 14:43 | Outpatient (REF) | payer MEDICARE, MEDICAID, SELFPAY ==
[2018-09-18 22:15] LABS: Abs Immature Grans 0.02 k/cumm (0.0-0.09); Absolute Basophil Count 0.01 k/cumm (0.0-0.2); Absolute Eosinophil Count 0.11 k/cumm (0.0-0.7); Absolute Monocyte Count 0.39 k/cumm (0.11-0.7); Absolute Neutrophil Count 3.16 k/cumm (1.2-6.7); Basophils % 0.2; Eosinophils % 2.2; HCT 38.1 % (36.0-46.0); HGB 11.5 g/dL (12.0-15.5); Immature Grans % 0.4; Lymphocytes % 24.5; Mean Corp. HGB Concentration 30.2 g/dL (32.0-36.0); Mean Corpuscular Hemoglobin 29.2 pg (27.0-33.0); Mean Corpuscular Volume 96.7 fL (80-95); Mean Platelet Volume 11.2 fL (8.0-11.0); Neutrophils % 64.7; Platelet Count 203 x1000/uL (130-400); RBC 3.94 m/cumm (4.00-5.20); RBC Distribution Width 14.5 % (11.7-14.6); White Blood Cell Count 4.89 k/cumm (4.4-10.8)
== END 2018-09-18 15:03 ==
LOC: NCHCN 14:43
PROVIDERS: PCP Internal Medicine; Visit Provider Internal Medicine
DX: N18.3 Chronic kidney disease, stage 3 (moderate) (principal)
CPT/HCPCS: 85025

== ENCOUNTER 2018-12-20 18:24 | Emergency (ER) | payer MEDICARE, MEDICAID, SELFPAY ==
[2018-12-20 18:31] VITALS: BP 139/95; PULSE 66; RESP 16; TEMP 36.3; O2SAT 95
--- NOTE | 2018-12-20 18:59 | DI.RAD_ITS ---
SYMPTOM/DIAGNOSIS: FELL, PAIN RT SHOULDER RIGHT SHOULDER: Three views. Comparison is made with 07/31/18. There does not appear to be a dislocation. There are degenerative changes seen at the acromioclavicular joint and the greater tuberosity. There is flattening of the humeral head which was present on the prior examination. This can be seen with avascular necrosis. The bones are osteopenic.
--- NOTE | 2018-12-20 19:00 | W.ED.GENAD ---
Discharge Plan Disposition Patient Disposition: HOME Discharge Details Chief Complaint: Orthopedic Clinical Impression: Injury of shoulder, right, Fracture of humeral head, right, closed Primary Care Provider: Randal Sainz ED Provider: Jai Lunsford Home Meds and New Rx's Prescriptions: Continued ropinirole 0.5 MG tablet 1 mg PO HS Qty: 60 RF: 0 gabapentin 300 MG capsule 400 mg PO TID RF: 0 carvedilol 3.125 MG tablet 3.125 mg PO BID RF: 0 cyanocobalamin (vitamin B-12) [Vitamin B-12] 500 MCG tablet 2,000 mcg PO QAM RF: 0 Stool Softener 50 MG capsule 1 cap PO BID PRN PRNQty: 0 RF: 0 hydrocodone-acetaminophen 1 TAB tablet 1 tab PO .Q4HRS PRN PRNQty: 30 RF: 0 acetaminophen 325 mg Tablet 650 mg PO Q4H PRNRF: 0 magnesium hydroxide [Milk of Magnesia] 400 mg/5 mL Suspension 30 ml PO PRN PRNRF: 0 bisacodyl 10 mg Suppository 1 ea [place] DIRECTED RF: 0 polyethylene glycol 3350 17 gram Powder In Packet 17 g PO QAM RF: 0 Lactobacillus acidophilus [Acidophilus] Capsule 1 cap PO BID RF: 0 pantoprazole [Protonix] 40 mg tablet,delayed release (DR/EC) 40 mg PO BID Qty: 60 RF: 0 Discharge Instructions Instructions: Proximal Humerus Fracture (ED) Additional Instructions: Keep your arm in sling until cleared by orthopedics. Follow-up with orthopedics as scheduled on Saturday. Return to the ER for any worsening or new concerning symptoms. Referrals: Yazan Michel MD [ [facility] STAFF PHYSICIAN] - Medical Decision Making 19:00 --78-year-old female with multiple medical problems including rotator cuff injury right shoulder, here after mechanical fall from the toilet to the ground with increased pain right shoulder. Patient with tenderness and crepitus on palpation of the proximal right humerus. She is neurovascular intact distally. Concern for recurrent rotator cuff injury versus fracture of her proximal humerus. I offered Tylenol and patient declined. Patient was provided an ice pack. 20:08 --x-ray of the right shoulder interpreted by radiology:IMPRESSION: 1. On prior examination, the patient had some sclerosis in the humeral head which can be seen with avascular necrosis. When compared to prior examination, there is worsening flattening and sclerosis. This can be seen secondary to progression in avascular necrosis. Acute impaction fracture, given history, is not excluded. Correlation suggested. Patient placed in sling. I advised that she follow-up with orthopedic surgery. She has follow-up appointment scheduled with Dr. Michel on Saturday. HPI General Mode of arrival: ambulatory. Date/Time Provider Initiated Documentation: 12/20/18 18:36. Limitations to Documentation: no limitations. Information obtained by: patient. HPI Narrative: 78-year-old female with multiple medical problems here after mechanical fall from toilet to the floor with injury to her right shoulder. Patient notes she is a history of rotator cuff injury in her right shoulder. She thinks she reinjured it today and specifically occurred when her son tried to help her back to a seated position. Pain is moderate. Pain is worse on palpation and with movement of the shoulder. No associated numbness or weakness. No head trauma. No neck pain. No other injury. Related Data Home Medications Medication Instructions Recorded Confirmed ropinirole 1 mg PO HS #60 tab 04/10/13 12/20/18 gabapentin 400 mg PO TID 01/27/15 12/20/18 carvedilol 3.125 mg PO BID 03/29/15 12/20/18 cyanocobalamin (vitamin B-12) 2,000 mcg PO QAM 03/29/15 12/20/18 [Vitamin B-12] Stool Softener 1 cap PO BID PRN PRN #0 05/02/15 12/20/18 hydrocodone-acetaminophen 1 tab PO .Q4HRS PRN PRN #30 tab 05/02/15 12/20/18 Lactobacillus acidophilus 1 cap PO BID 08/15/18 12/20/18 [Acidophilus] acetaminophen 650 mg PO Q4H PRN 08/15/18 12/20/18 bisacodyl 1 ea [place] DIRECTED 08/15/18 12/20/18 magnesium hydroxide [Milk of 30 ml PO PRN PRN 08/15/18 12/20/18 Magnesia] polyethylene glycol 3350 17 g PO QAM 08/15/18 12/20/18 pantoprazole [Protonix] 40 mg PO BID #60 tab 08/18/18 12/20/18 Previous Rx's Medication Instructions Recorded ropinirole 1 mg PO HS #60 tab 04/10/13 Stool Softener 1 cap PO BID PRN PRN #0 05/02/15 hydrocodone-acetaminophen 1 tab PO .Q4HRS PRN PRN #30 tab 05/02/15 pantoprazole [Protonix] 40 mg PO BID #60 tab 08/18/18 Allergies Allergy/AdvReac Type Severity Reaction Status Date / Time Sulfa (Sulfonamide Allergy Intermediate Contraindic Unverified 12/20/18 18:31 Antibiotics) ated metoclopramide HCl AdvReac Mild Diarrhea Unverified 12/20/18 18:31 [From [facility]] General Stated Complaint: Orthopedic ALEJANDRA: 3 Review of Systems Musculoskeletal Reports as per HPI Neurologic Reports as per HPI PFS Medical History DJD of right shoulder (Chronic) Sensorineural hearing loss, bilateral (Chronic 03/01/16) 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) Polymyalgia rheumatica (Chronic) Osteoarthritis of ankle (Chronic) Migraine (Chronic) Hypercholesterolemia (Chronic) Restless legs (Chronic) History of surgery (Chronic) Hx of deep vein thrombosis and pulmonary emboli 2005 (Chronic) Chronic anticoagulation (Chronic) Essential hypertension (Chronic) History of peptic ulcer disease (Chronic) 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), ankle and foot (Chronic) Venous stasis of lower extremity (Chronic) H/O: GI bleed (Chronic) H/O: CVA (cerebrovascular accident) (Chronic) Congenital deformities of feet (Chronic) CHF (congestive heart failure) (Chronic) History of left below knee amputation (Chronic) Presence of IVC filter (Chronic) Chronic congestive heart failure Essential hypertension 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 Exam Const General: cooperative and no acute distress HENMT Head: normocephalic and atraumatic Mouth: mucous membranes dry Eyes Conjunctivae: normal conjunctivae EOM: EOM intact bilaterally Neck Neck: trachea midline, supple and nontender Resp Auscultation: clear to auscultation bilaterally, no rales, no rhonchi and no wheezes Cardio Jugular venous pressure: no JVD Rate: regular rate and not tachycardic Rhythm: regular rhythm GI Palpation: soft, not firm, no guarding, no masses, not rigid and nontender Skin General skin exam: no rashes or lesions noted Neuro General: alert, awake, oriented x3 and tone normal Extrem General: no edema Right upper extremity: shoulder/upper arm Details: tenderness Location: of the proximal humerus, abnormal ROM Details: pain with passive ROM Details: with ABduction and crepitus Location: of the proximal humerus Psych Appearance: grossly normal Mental Status: mental status grossly normal Speech and Movement: speech and movement normal Course Vital Signs Temperature 36.3 C L 12/20/18 18:31 Pulse 66 12/20/18 18:31 Respiratory Rate 16 12/20/18 18:31 Blood Pressure 139/95 H 12/20/18 18:31 Pulse Oximetry 95 12/20/18 18:31 Temperature 36.3 C L 12/20/18 18:31 Temperature Source Temporal Artery Scan 12/20/18 18:31 Pulse 66 12/20/18 18:31 Respiratory Rate 16 12/20/18 18:31 Respiratory Effort 12/20/18 18:31 Blood Pressure 139/95 H 12/20/18 18:31 Blood Pressure Position Supine 12/20/18 18:31 Pulse Oximetry 95 12/20/18 18:31 Oxygen Delivery Method Room Air 12/20/18 18:31 Oxygen Flow Rate 0 12/20/18 18:31
--- NOTE | 2018-12-20 19:04 | ED.GENADUL_ITS ---
Discharge Plan Disposition Patient Disposition: HOME Discharge Details Chief Complaint: Orthopedic Clinical Impression: Injury of shoulder, right, Fracture of humeral head, right, closed Primary Care Provider: Randal Sainz ED Provider: Jai Lunsford Home Meds and New Rx's Prescriptions: Continued ropinirole 0.5 MG tablet 1 mg PO HS Qty: 60 RF: 0 gabapentin 300 MG capsule 400 mg PO TID RF: 0 carvedilol 3.125 MG tablet 3.125 mg PO BID RF: 0 cyanocobalamin (vitamin B-12) [Vitamin B-12] 500 MCG tablet 2,000 mcg PO QAM RF: 0 Stool Softener 50 MG capsule 1 cap PO BID PRN PRNQty: 0 RF: 0 hydrocodone-acetaminophen 1 TAB tablet 1 tab PO .Q4HRS PRN PRNQty: 30 RF: 0 acetaminophen 325 mg Tablet 650 mg PO Q4H PRNRF: 0 magnesium hydroxide [Milk of Magnesia] 400 mg/5 mL Suspension 30 ml PO PRN PRNRF: 0 bisacodyl 10 mg Suppository 1 ea SD DIRECTED RF: 0 polyethylene glycol 3350 17 gram Powder In Packet 17 g PO QAM RF: 0 Lactobacillus acidophilus [Acidophilus] Capsule 1 cap PO BID RF: 0 pantoprazole [Protonix] 40 mg tablet,delayed release (DR/EC) 40 mg PO BID Qty: 60 RF: 0 Discharge Instructions Instructions: Proximal Humerus Fracture (ED) Additional Instructions: Keep your arm in sling until cleared by orthopedics. Follow-up with orthopedics as scheduled on Saturday. Return to the ER for any worsening or new concerning symptoms. Referrals: Yazan Michel MD [ [facility] STAFF PHYSICIAN] - Medical Decision Making 19:00 --78-year-old female with multiple medical problems including rotator cuff injury right shoulder, here after mechanical fall from the toilet to the ground with increased pain right shoulder. Patient with tenderness and crepitus on palpation of the proximal right humerus. She is neurovascular intact distally. Concern for recurrent rotator cuff injury versus fracture of her proximal humerus. I offered Tylenol and patient declined. Patient was provided an ice pack. 20:08 --x-ray of the right shoulder interpreted by radiology:IMPRESSION: 1. On prior examination, the patient had some sclerosis in the humeral head which can be seen with avascular necrosis. When compared to prior examination, there is worsening flattening and sclerosis. This can be seen secondary to progression in avascular necrosis. Acute impaction fracture, given history, is not excluded. Correlation suggested. Patient placed in sling. I advised that she follow-up with orthopedic surgery. She has follow-up appointment scheduled with Dr. Michel on Saturday. HPI General Mode of arrival: ambulatory . Date/Time Provider Initiated Documentation: 12/20/18 18:36 . Limitations to Documentation: no limitations . Information obtained by: patient . HPI Narrative: 78-year-old female with multiple medical problems here after mechanical fall from toilet to the floor with injury to her right shoulder. Patient notes she is a history of rotator cuff injury in her right shoulder. She thinks she reinjured it today and specifically occurred when her son tried to help her back to a seated position. Pain is moderate. Pain is worse on palpation and with movement of the shoulder. No associated numbness or weakness. No head trauma. No neck pain. No other injury. Related Data Home Medications Medication Instructions Recorded Confirmed ropinirole 1 mg PO HS #60 tab 04/10/13 12/20/18 gabapentin 400 mg PO TID 01/27/15 12/20/18 carvedilol 3.125 mg PO BID 03/29/15 12/20/18 cyanocobalamin (vitamin B-12) 2,000 mcg PO QAM 03/29/15 12/20/18 [Vitamin B-12] Stool Softener 1 cap PO BID PRN PRN #0 05/02/15 12/20/18 hydrocodone-acetaminophen 1 tab PO .Q4HRS PRN PRN #30 tab 05/02/15 12/20/18 Lactobacillus acidophilus 1 cap PO BID 08/15/18 12/20/18 [Acidophilus] acetaminophen 650 mg PO Q4H PRN 08/15/18 12/20/18 bisacodyl 1 ea SD DIRECTED 08/15/18 12/20/18 magnesium hydroxide [Milk of 30 ml PO PRN PRN 08/15/18 12/20/18 Magnesia] polyethylene glycol 3350 17 g PO QAM 08/15/18 12/20/18 pantoprazole [Protonix] 40 mg PO BID #60 tab 08/18/18 12/20/18 Previous Rx's Medication Instructions Recorded ropinirole 1 mg PO HS #60 tab 04/10/13 Stool Softener 1 cap PO BID PRN PRN #0 05/02/15 hydrocodone-acetaminophen 1 tab PO .Q4HRS PRN PRN #30 tab 05/02/15 pantoprazole [Protonix] 40 mg PO BID #60 tab 08/18/18 Allergies Allergy/AdvReac Type Severity Reaction Status Date / Time Sulfa (Sulfonamide Allergy Intermediate Contraindic Unverified 12/20/18 18:31 Antibiotics) ated metoclopramide HCl AdvReac Mild Diarrhea Unverified 12/20/18 18:31 [From [facility]] General Stated Complaint: Orthopedic ALEJANDRA: 3 Review of Systems Musculoskeletal Reports as per HPI Neurologic Reports as per HPI PFS Medical History DJD of right shoulder (Chronic) Sensorineural hearing loss, bilateral (Chronic 03/01/16) 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) Polymyalgia rheumatica (Chronic) Osteoarthritis of ankle (Chronic) Migraine (Chronic) Hypercholesterolemia (Chronic) Restless legs (Chronic) History of surgery (Chronic) Hx of deep vein thrombosis and pulmonary emboli 2005 (Chronic) Chronic anticoagulation (Chronic) Essential hypertension (Chronic) History of peptic ulcer disease (Chronic) 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), ankle and foot (Chronic) Venous stasis of lower extremity (Chronic) H/O: GI bleed (Chronic) H/O: CVA (cerebrovascular accident) (Chronic) Congenital deformities of feet (Chronic) CHF (congestive heart failure) (Chronic) History of left below knee amputation (Chronic) Presence of IVC filter (Chronic) Chronic congestive heart failure Essential hypertension 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 Exam Const General: cooperative and no acute distress HENMT Head: normocephalic and atraumatic Mouth: mucous membranes dry Eyes Conjunctivae: normal conjunctivae EOM: EOM intact bilaterally Neck Neck: trachea midline, supple and nontender Resp Auscultation: clear to auscultation bilaterally, no rales, no rhonchi and no wheezes Cardio Jugular venous pressure: no JVD Rate: regular rate and not tachycardic Rhythm: regular rhythm GI Palpation: soft, not firm, no guarding, no masses, not rigid and nontender Skin General skin exam: no rashes or lesions noted Neuro General: alert, awake, oriented x3 and tone normal Extrem General: no edema Right upper extremity: shoulder/upper arm Details: tenderness Location: of the proximal humerus, abnormal ROM Details: pain with passive ROM Details: with ABduction and crepitus Location: of the proximal humerus Psych Appearance: grossly normal Mental Status: mental status grossly normal Speech and Movement: speech and movement normal Course Vital Signs Temperature 36.3 C L 12/20/18 18:31 Pulse 66 12/20/18 18:31 Respiratory Rate 16 12/20/18 18:31 Blood Pressure 139/95 H 12/20/18 18:31 Pulse Oximetry 95 12/20/18 18:31 Temperature 36.3 C L 12/20/18 18:31 Temperature Source Temporal Artery Scan 12/20/18 18:31 Pulse 66 12/20/18 18:31 Respiratory Rate 16 12/20/18 18:31 Respiratory Effort 12/20/18 18:31 Blood Pressure 139/95 H 12/20/18 18:31 Blood Pressure Position Supine 12/20/18 18:31 Pulse Oximetry 95 12/20/18 18:31 Oxygen Delivery Method Room Air 12/20/18 18:31 Oxygen Flow Rate 0 12/20/18 18:31
--- NOTE | 2018-12-20 20:11 | DI.VRAD_ITS ---
EXAM: XR Right Shoulder Complete, 2 or More Views EXAM DATE/TIME: 12/20/2018 7:01 PM CLINICAL HISTORY: 78 years old, female; Pain; Shoulder; Right; Patient HX: Fall, pain TECHNIQUE: XR Right shoulder complete 2 or more views. COMPARISON: CR XR shoulder RT complete 2+V 07/31/2018 11:32 AM FINDINGS: Bones/joints: No dislocation. On prior examination, the patient had some sclerosis in the humeral head which can be seen with avascular necrosis. When compared to prior examination, there is worsening flattening and sclerosis. There are degenerative changes to the a.c. joint Soft tissues: No unusual soft tissue calcifications. IMPRESSION: 1. On prior examination, the patient had some sclerosis in the humeral head which can be seen with avascular necrosis. When compared to prior examination, there is worsening flattening and sclerosis. This can be seen secondary to progression in avascular necrosis. Acute impaction fracture, given history, is not excluded. Correlation suggested. Findings were discussed with Jai Lunsford at 12/20/2018 8:10 PM EST. Dictated and Authenticated by: Marci Brito MD. Ordering:MARIELOS Vergara MD
== END 2018-12-20 20:29 | disposition home or self-care (01) ==
PROVIDERS: Emergency Provider Student in an Organized Health Care Education/Training Program; PCP Internal Medicine
DX: S42.291A Other displaced fracture of upper end of right humerus, initial encounter for closed fracture (principal); W18.11XA Fall from or off toilet without subsequent striking against object, initial encounter; I10 Essential (primary) hypertension; J44.9 Chronic obstructive pulmonary disease, unspecified
CPT/HCPCS: 99283; 73030; L3650

== ENCOUNTER → 2018-12-23 10:53 | Outpatient (BNVA) | payer MEDICARE, MEDICAID, SELFPAY | PROVIDERS: PCP Internal Medicine; Referring Provider Internal Medicine; Visit Provider Orthopaedic Surgery | DX: M19.011 Primary osteoarthritis, right shoulder (principal); W18.11XA Fall from or off toilet without subsequent striking against object, initial encounter; M25.511 Pain in right shoulder | CPT/HCPCS: 99214 ==

== ENCOUNTER 2018-12-25 13:33 | Outpatient (REF) | payer MEDICARE, MEDICAID, SELFPAY ==
[2018-12-25 21:59] LABS: Anion Gap 4.2 mmol/L (3-11); BUN 36 mg/dL (7-18); CO2 37.8 mmol/L (21.0-32.0); CREATININE 1.24 mg/dL (0.55-1.02); Calcium 10.5 mg/dL (8.5-10.1); Chloride 103 mmol/L (98-107); Estimated GFR 41.62 (mL/min/1.73m2); Glucose 112 mg/dL (70-100); Potassium 3.1 mmol/L (3.5-5.1); Sodium 145 mmol/L (136-145)
== END 2018-12-25 13:53 ==
LOC: NCHCN 13:33
PROVIDERS: PCP Internal Medicine; Visit Provider Internal Medicine
DX: I10 Essential (primary) hypertension (principal); D53.9 Nutritional anemia, unspecified; R07.89 Other chest pain
CPT/HCPCS: 80048

== ENCOUNTER 2018-12-26 00:26 | Outpatient (CLI) | payer MEDICARE, MEDICAID, SELFPAY ==
--- NOTE | 2018-12-26 15:36 | DI.CT_ITS ---
SYMPTOMS/DIAGNOSIS: AVASCULAR NECROSIS, RT HUMERAL HEAD; DJD, RT SHOULDER CT, RIGHT SHOULDER: CT examination of the shoulder was performed utilizing multislice acquisition and multiplanar reconstruction. The visualized portions of the right lung and tracheobronchial tree appear intact. There is endstage degenerative change of the glenohumeral joint with some fragmentation of the anterior labrum and marked subchondral sclerosis. There is erosion of the humeral head; the patient reportedly has a history of avascular necrosis and the appearance is consistent with this diagnosis. The coracoid is fractured and mildly displaced with the abutting humeral head displacing it medially. There is a large joint effusion and calcific and ossific material is present. With the presence of bony erosion and this fluid collection and soft tissue calcification, the possibility of infectious process cannot be entirely excluded. Please correlate clinically.
== END 2018-12-26 00:46 ==
PROVIDERS: PCP Internal Medicine; Visit Provider Orthopaedic Surgery
DX: M87.321 Other secondary osteonecrosis, right humerus (principal); M19.011 Primary osteoarthritis, right shoulder; M25.411 Effusion, right shoulder
CPT/HCPCS: 73200

== ENCOUNTER → 2019-01-07 10:54 | Outpatient (BNVA) | payer MEDICARE, MEDICAID, SELFPAY | PROVIDERS: PCP Internal Medicine; Referring Provider Internal Medicine; Visit Provider Orthopaedic Surgery | DX: M19.011 Primary osteoarthritis, right shoulder (principal) | CPT/HCPCS: 99213 ==

== ENCOUNTER 2019-01-08 16:18 | Outpatient (REF) | payer MEDICARE, MEDICAID, SELFPAY | END 2019-01-08 16:38 | LOC: NCHCN 16:18 | PROVIDERS: PCP Internal Medicine; Visit Provider Family Medicine | DX: N39.0 Urinary tract infection, site not specified (principal) | CPT/HCPCS: 87086 ==

== ENCOUNTER 2019-01-09 15:01 | Inpatient (IN) | payer MEDICARE, MEDICAID, SELFPAY ==
[2019-01-09] VITALS (31 sets, daily range): BP systolic 103–136; BP diastolic 56–59; PULSE 76–105; RESP 8–29; TEMP 37.1; O2SAT 84–100
--- NOTE | 2019-01-09 15:12 | NUR.NOTE ---
pt presents to the Er stating that her primary complaint is that she is constipated however PT states that she had A BM yesterday
--- NOTE | 2019-01-09 15:23 | W.ED.GENAD ---
Discharge Plan Disposition Patient Disposition: [facility] INPATIENT Condition: Improving Discharge Details Chief Complaint: GenMedical Clinical Impression: Non-ST elevation MD (NSTEMI), UTI (urinary tract infection) Reason For Visit: NSTEMI,UTI Admit Date/Time: 01/11/19 08:25 Admit Provider: Hermelindo Miller Attending Provider: Hermelindo Miller Primary Care Provider: Randal Sainz ED Provider: Bertrand Chaffee Hospital Course Hospital Course: 78-year-old woman that presented with chest pain. Serial troponins were checked and peaked at 0.37. She underwent MPI testing 01/12/2019, a small anterior defect was noted. It was elected to treat her with medical management. Patient had severe bradycardia on carvedilol so this was stopped. She is deemed intolerant of beta-blockers. She is maintained on MOIRA inhibitors and low-dose aspirin therapy. Her right shoulder was causing discomfort. Dr. Michel notes that she has severe DJD with anterior partial dislocation and would need a total shoulder replacement for which he recommends follow-up with Dr. Daniel at [facility]. She had some visual hallucinations overnight with use of tramadol. Pain control will try to avoid tramadol. Discharge Instructions Instructions: Myocardial Infarction (DC), Urinary Tract Infection in Women (DC) Forms: Nursing Discharge Form Referrals: Randal Sainz MD [Primary Care Provider] - 01/20/19 3:05 pm Discharge Data Discharge Date/Time-TO BE ENTERED AT DEPARTURE: 01/09/19 22:55 Medical Decision Making Patient presenting to the emergency department for chief complaint of abdominal pain. Patient states that she feels constipated and is not feeling well. Patient does state bowel movement yesterday but also states some heartburn. Patient was seen yesterday by primary care and diagnosed with UTI and has not even taken 24 hours of antibiotics and says that she does not feel better. Patient is chronically ill-appearing and frail. Physical exam shows a diffusely tender abdomen clear lung sounds, irregular heart rate, patient alert awake and oriented. Given that patient states overall malaise and not feeling well I do feel the patient requires workup given ill appearance and multiple medical comorbidities Review of urinalysis shows leukocyte esterase positive but otherwise lab is interpreting as a contaminated sample. Patient does have some decreased renal function, slightly low potassium and magnesium, otherwise nondiagnostic CMP, no leukocytosis noted on CBC. Troponin did come back elevated 0.30. Chest x-ray was interpreted as small left pleural effusion by V rad. Patient ordered 324 of aspirin and [facility] cardiology was consulted. Spoke with Dr. Harris triage clinician. She stated that given patient's recent diagnosis of UTI, possible signs of dehydration on labs. She recommended some fluids and repeat serial troponins and EKGs. We did discuss risk versus benefit of heparin therapy given patient's history of hemorrhagic stroke, she stated there were pros and cons to this therapy that could be discussed with patient and family. After time of consult it was due for patient have 3-hour troponin so we held off on heparin therapy pending the second result. Second troponin was drawn and showed a reading of 0.37 so continued elevation. Given no bed availability even on a wait list possibility I did contact [facility]. I spoke with Dr. Wiley and reviewed patient's case. He recommended 81 mg of aspirin daily, to discuss with patient risk versus benefit of Plavix, serial troponins and EKGs with recontacting their facility for any emergent change otherwise there is no nonemergent bed availability at their facility either. He did state that transfer center would contact our facility when bed became available. We did discuss heparin at this time and he stated to further discuss this with family along with hospitalist. I did speak with Dr. Miller while hospitalist for admission of non-STEMI patient. He agreed for further telemetry observation of patient and management. Did discuss with patient and family about DNR/DNI status, along with any antiplatelet or anticoagulation therapy. Upon further discussion with patient she stated that she did not want any antiplatelet or anticoagulation therapy knowing that there would be a risk of potentially further bleed. I also did discuss this with son and he was also agreeable of risk versus benefit of bleeding incident in light of patient's medical history along with hemorrhagic stroke. At this time we decided to defer any anticoagulation or antiplatelet beyond daily aspirin. ECG Data Attestation: I personally reviewed and interpreted this ECG (s) as follows: Interpretation: Rate of 99 with rhythm of atrial fibrillation, no STEMI findings, nondiagnostic. EKG reviewed with Dr. Simon Cleaning [facility] General Mode of arrival: ambulatory. Date/Time Provider Initiated Documentation: 01/09/19 15:06. Limitations to Documentation: no limitations. Information obtained by: patient. History of Present Illness 78 year old F presents to the emergency department with the chief complaint of Not feeling well, with intensity rated at 6. Quality is described as aching, and is localized to the right and upper extremity. Patient started experiencing this day(s) and it has been constant. Patient did receive the following treatments prior to arrival, none Related Data Home Medications Medication Instructions Recorded Confirmed ropinirole 1 mg PO HS #60 tab 04/10/13 01/09/19 gabapentin 400 - 800 mg PO BID 01/27/15 01/09/19 cyanocobalamin (vitamin B-12) 2,000 mcg PO QAM 03/29/15 01/09/19 [Vitamin B-12] Stool Softener 1 cap PO BID PRN PRN #0 05/02/15 01/09/19 Lactobacillus acidophilus 1 cap PO BID 08/15/18 01/09/19 [Acidophilus] acetaminophen 650 mg PO Q4H PRN 08/15/18 01/09/19 bisacodyl 1 ea PA DIRECTED 08/15/18 01/09/19 magnesium hydroxide [Milk of 30 ml PO PRN PRN 08/15/18 01/09/19 Magnesia] polyethylene glycol 3350 17 g PO QAM 08/15/18 01/09/19 pantoprazole [Protonix] 40 mg PO BID #60 tab 08/18/18 01/07/19 hydrocodone-acetaminophen 1 tab PO TID 01/09/19 01/09/19 lisinopril 20 mg PO DAILY 01/09/19 01/09/19 loperamide 2 mg PO PRN PRN 01/09/19 01/09/19 ondansetron HCl 4 mg PO Q8H 01/09/19 01/09/19 pramoxine [Sarna Sensitive] 1 applic TOPICAL DAILY 01/09/19 01/09/19 aspirin 81 mg PO DAILY #100 tab 01/13/19 atorvastatin [Lipitor] 40 mg PO DAILY #30 tab 01/13/19 lidocaine [Lidoderm] 2 patch TOPICAL Q24H #60 ea 01/13/19 Previous Rx's Medication Instructions Recorded ropinirole 1 mg PO HS #60 tab 04/10/13 Stool Softener 1 cap PO BID PRN PRN #0 05/02/15 pantoprazole [Protonix] 40 mg PO BID #60 tab 08/18/18 aspirin 81 mg PO DAILY #100 tab 01/13/19 atorvastatin [Lipitor] 40 mg PO DAILY #30 tab 01/13/19 lidocaine [Lidoderm] 2 patch TOPICAL Q24H #60 ea 01/13/19 Allergies Allergy/AdvReac Type Severity Reaction Status Date / Time Sulfa (Sulfonamide Allergy Intermediate Contraindic Unverified 01/09/19 15:38 Antibiotics) ated metoclopramide HCl AdvReac Mild Diarrhea Unverified 01/09/19 15:38 [From [facility]] General Stated Complaint: GenMedical ALEJANDRA: 3 Review of Systems Constitutional Denies chills, Reports fatigue, Denies fever(s), Reports lethargy, Reports malaise and Reports poor appetite Cardiovascular Denies chest pain and Denies dyspnea Respiratory Denies cough and Denies dyspnea Gastrointestinal Reports abdominal pain, Reports constipation and Reports heartburn Musculoskeletal Reports arthralgias (Right shoulder) Endocrine Reports fatigue PFS Medical History DJD of right shoulder (Chronic) Sensorineural hearing loss, bilateral (Chronic 03/01/16) 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) Polymyalgia rheumatica (Chronic) Osteoarthritis of ankle (Chronic) Migraine (Chronic) Hypercholesterolemia (Chronic) Restless legs (Chronic) History of surgery (Chronic) Hx of deep vein thrombosis and pulmonary emboli 2005 (Chronic) Chronic anticoagulation (Chronic) Essential hypertension (Chronic) History of peptic ulcer disease (Chronic) 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), ankle and foot (Chronic) Venous stasis of lower extremity (Chronic) H/O: GI bleed (Chronic) H/O: CVA (cerebrovascular accident) (Chronic) Congenital deformities of feet (Chronic) CHF (congestive heart failure) (Chronic) History of left below knee amputation (Chronic) Presence of IVC filter (Chronic) Chronic congestive heart failure Essential hypertension 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 Mixed hyperlipidemia Morbid obesity Personal history of pulmonary embolism Polymyalgia rheumatica Restless legs Surgical History Cholecystectomy Hernia Repair, Incisional Repair of umbilical hernia Social History Smoking/Tobacco Use Status: Never Drug use: Never Do you feel safe in your relationship?: Yes Exam Const General: cooperative, frail appearing and ill appearing chronically Orientation: alert, awake and oriented x3 Resp Effort & Inspection: normal respiratory effort and able to speak in complete sentences Auscultation: clear to auscultation bilaterally Cardio Rate: regular rate Rhythm: abnormal rhythm irregularly irregular Heart Sounds: S1 normal, S2 normal, no click, no gallops, no murmurs and no rubs GI Palpation: soft, no hepatosplenomegaly, not firm, no guarding, no masses, no pulsatile masses, not rigid, no splenomegaly and tender (difuse non focal) Auscultation: normal bowel sounds Back/Spine/Pelvis Back: no CVA tenderness Neuro General: alert, awake and oriented x3 Extrem General: amputation noted Below the knee: left Course Vital Signs Temperature 37.1 C 01/09/19 15:15 Pulse 89 01/09/19 15:15 Respiratory Rate 15 01/09/19 15:15 Blood Pressure 106/56 L 01/09/19 15:15 Pulse Oximetry 94 L 01/09/19 15:15 Temperature 37.1 C 01/09/19 15:15 Temperature Source Skin 01/09/19 15:15 Pulse 89 01/09/19 15:15 Respiratory Rate 15 01/09/19 15:15 Blood Pressure 106/56 L 01/09/19 15:15 Blood Pressure Position Supine 01/09/19 15:15 Pulse Oximetry 94 L 01/09/19 15:15 Oxygen Delivery Method Room Air 01/09/19 15:15 Oxygen Flow Rate 0 01/09/19 15:15 Pain Level 2 01/09/19 15:15
--- NOTE | 2019-01-09 15:26 | ED.GENADUL_ITS ---
Discharge Plan Disposition Patient Disposition: [facility] INPATIENT Condition: Improving Discharge Details Chief Complaint: GenMedical Clinical Impression: Non-ST elevation IN (NSTEMI), UTI (urinary tract infection) Reason For Visit: NSTEMI,UTI Admit Date/Time: 01/11/19 08:25 Admit Provider: Hermelindo Miller Attending Provider: Hermelindo Miller Primary Care Provider: Randal Sainz ED Provider: [facility] Hospital Course: 78-year-old woman that presented with chest pain. Serial troponins were checked and peaked at 0.37. She underwent MPI testing 01/12/2019, a small anterior defect was noted. It was elected to treat her with medical management. Patient had severe bradycardia on carvedilol so this was stopped. She is deemed intolerant of beta-blockers. She is maintained on MOIRA inhibitors and low-dose aspirin therapy. Her right shoulder was causing discomfort. Dr. Michel notes that she has severe DJD with anterior partial dislocation and would need a total shoulder replacement for which he recommends follow-up with Dr. Daniel at [facility]. She had some visual hallucinations overnight with use of tramadol. Pain control will try to avoid tramadol. Discharge Instructions Instructions: Myocardial Infarction (DC), Urinary Tract Infection in Women (DC) Forms: Nursing Discharge Form Referrals: Randal Sainz MD [Primary Care Provider] - 01/20/19 3:05 pm Discharge Data Discharge Date/Time-TO BE ENTERED AT DEPARTURE: 01/09/19 22:55 Medical Decision Making Patient presenting to the emergency department for chief complaint of abdominal pain. Patient states that she feels constipated and is not feeling well. Patient does state bowel movement yesterday but also states some heartburn. Patient was seen yesterday by primary care and diagnosed with UTI and has not even taken 24 hours of antibiotics and says that she does not feel better. Patient is chronically ill-appearing and frail. Physical exam shows a diffusely tender abdomen clear lung sounds, irregular heart rate, patient alert awake and oriented. Given that patient states overall malaise and not feeling well I do feel the patient requires workup given ill appearance and multiple medical comorbidities Review of urinalysis shows leukocyte esterase positive but otherwise lab is interpreting as a contaminated sample. Patient does have some decreased renal function, slightly low potassium and magnesium, otherwise nondiagnostic CMP, no leukocytosis noted on CBC. Troponin did come back elevated 0.30. Chest x-ray was interpreted as small left pleural effusion by V rad. Patient ordered 324 of aspirin and [facility] cardiology was consulted. Spoke with Dr. Harris manager practice. She stated that given patient's recent diagnosis of UTI, possible signs of dehydration on labs. She recommended some fluids and repeat serial troponins and EKGs. We did discuss risk versus benefit of heparin therapy given patient's history of hemorrhagic stroke, she stated there were pros and cons to this therapy that could be discussed with patient and family. After time of consult it was due for patient have 3-hour troponin so we held off on heparin therapy pending the second result. Second troponin was drawn and showed a reading of 0.37 so continued elevation. Given no bed availability even on a wait list possibility I did contact [facility]. I spoke with Dr. Wiley and reviewed patient's case. He recommended 81 mg of aspirin daily, to discuss with patient risk versus benefit of Plavix, serial troponins and EKGs with recontacting their facility for any emergent change otherwise there is no nonemergent bed availability at their facility either. He did state that transfer center would contact our facility when bed became available. We did discuss heparin at this time and he stated to further discuss this with family along with hospitalist. I did speak with Dr. Miller while hospitalist for admission of non-STEMI patient. He agreed for further telemetry observation of patient and management. Did discuss with patient and family about DNR/DNI status, along with any antiplatelet or anticoagulation therapy. Upon further discussion with patient she stated that she did not want any antiplatelet or anticoagulation therapy knowing that there would be a risk of potentially further bleed. I also did discuss this with son and he was also agreeable of risk versus benefit of bleeding incident in light of patient's medical history along with hemorrhagic stroke. At this time we decided to defer any anticoagulation or antiplatelet beyond daily aspirin. ECG Data Attestation: I personally reviewed and interpreted this ECG (s) as follows: Interpretation: Rate of 99 with rhythm of atrial fibrillation, no STEMI findings, nondiagnostic. EKG reviewed with Dr. Simon Cleaning [facility] General Mode of arrival: ambulatory . Date/Time Provider Initiated Documentation: 01/09/19 15:06 . Limitations to Documentation: no limitations . Information obtained by: patient . History of Present Illness 78 year old F presents to the emergency department with the chief complaint of Not feeling well, with intensity rated at 6. Quality is described as aching, and is localized to the right and upper extremity. Patient started experiencing this day(s) and it has been constant. Patient did receive the following treatments prior to arrival, none Related Data Home Medications Medication Instructions Recorded Confirmed ropinirole 1 mg PO HS #60 tab 04/10/13 01/09/19 gabapentin 400 - 800 mg PO BID 01/27/15 01/09/19 cyanocobalamin (vitamin B-12) 2,000 mcg PO QAM 03/29/15 01/09/19 [Vitamin B-12] Stool Softener 1 cap PO BID PRN PRN #0 05/02/15 01/09/19 Lactobacillus acidophilus 1 cap PO BID 08/15/18 01/09/19 [Acidophilus] acetaminophen 650 mg PO Q4H PRN 08/15/18 01/09/19 bisacodyl 1 ea DE DIRECTED 08/15/18 01/09/19 magnesium hydroxide [Milk of 30 ml PO PRN PRN 08/15/18 01/09/19 Magnesia] polyethylene glycol 3350 17 g PO QAM 08/15/18 01/09/19 pantoprazole [Protonix] 40 mg PO BID #60 tab 08/18/18 01/07/19 hydrocodone-acetaminophen 1 tab PO TID 01/09/19 01/09/19 lisinopril 20 mg PO DAILY 01/09/19 01/09/19 loperamide 2 mg PO PRN PRN 01/09/19 01/09/19 ondansetron HCl 4 mg PO Q8H 01/09/19 01/09/19 pramoxine [Sarna Sensitive] 1 applic TOPICAL DAILY 01/09/19 01/09/19 aspirin 81 mg PO DAILY #100 tab 01/13/19 atorvastatin [Lipitor] 40 mg PO DAILY #30 tab 01/13/19 lidocaine [Lidoderm] 2 patch TOPICAL Q24H #60 ea 01/13/19 Previous Rx's Medication Instructions Recorded ropinirole 1 mg PO HS #60 tab 04/10/13 Stool Softener 1 cap PO BID PRN PRN #0 05/02/15 pantoprazole [Protonix] 40 mg PO BID #60 tab 08/18/18 aspirin 81 mg PO DAILY #100 tab 01/13/19 atorvastatin [Lipitor] 40 mg PO DAILY #30 tab 01/13/19 lidocaine [Lidoderm] 2 patch TOPICAL Q24H #60 ea 01/13/19 Allergies Allergy/AdvReac Type Severity Reaction Status Date / Time Sulfa (Sulfonamide Allergy Intermediate Contraindic Unverified 01/09/19 15:38 Antibiotics) ated metoclopramide HCl AdvReac Mild Diarrhea Unverified 01/09/19 15:38 [From [facility]] General Stated Complaint: GenMedical ALEJANDRA: 3 Review of Systems Constitutional Denies chills, Reports fatigue, Denies fever(s), Reports lethargy, Reports malaise and Reports poor appetite Cardiovascular Denies chest pain and Denies dyspnea Respiratory Denies cough and Denies dyspnea Gastrointestinal Reports abdominal pain, Reports constipation and Reports heartburn Musculoskeletal Reports arthralgias (Right shoulder) Endocrine Reports fatigue PFS Medical History DJD of right shoulder (Chronic) Sensorineural hearing loss, bilateral (Chronic 03/01/16) 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) Polymyalgia rheumatica (Chronic) Osteoarthritis of ankle (Chronic) Migraine (Chronic) Hypercholesterolemia (Chronic) Restless legs (Chronic) History of surgery (Chronic) Hx of deep vein thrombosis and pulmonary emboli 2005 (Chronic) Chronic anticoagulation (Chronic) Essential hypertension (Chronic) History of peptic ulcer disease (Chronic) 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), ankle and foot (Chronic) Venous stasis of lower extremity (Chronic) H/O: GI bleed (Chronic) H/O: CVA (cerebrovascular accident) (Chronic) Congenital deformities of feet (Chronic) CHF (congestive heart failure) (Chronic) History of left below knee amputation (Chronic) Presence of IVC filter (Chronic) Chronic congestive heart failure Essential hypertension 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 Mixed hyperlipidemia Morbid obesity Personal history of pulmonary embolism Polymyalgia rheumatica Restless legs Surgical History Cholecystectomy Hernia Repair, Incisional Repair of umbilical hernia Social History Smoking/Tobacco Use Status: Never Drug use: Never Do you feel safe in your relationship?: Yes Exam Const General: cooperative, frail appearing and ill appearing chronically Orientation: alert, awake and oriented x3 Resp Effort & Inspection: normal respiratory effort and able to speak in complete sentences Auscultation: clear to auscultation bilaterally Cardio Rate: regular rate Rhythm: abnormal rhythm irregularly irregular Heart Sounds: S1 normal, S2 normal, no click, no gallops, no murmurs and no rubs GI Palpation: soft, no hepatosplenomegaly, not firm, no guarding, no masses, no pulsatile masses, not rigid, no splenomegaly and tender (difuse non focal) Auscultation: normal bowel sounds Back/Spine/Pelvis Back: no CVA tenderness Neuro General: alert, awake and oriented x3 Extrem General: amputation noted Below the knee: left Course Vital Signs Temperature 37.1 C 01/09/19 15:15 Pulse 89 01/09/19 15:15 Respiratory Rate 15 01/09/19 15:15 Blood Pressure 106/56 L 01/09/19 15:15 Pulse Oximetry 94 L 01/09/19 15:15 Temperature 37.1 C 01/09/19 15:15 Temperature Source Skin 01/09/19 15:15 Pulse 89 01/09/19 15:15 Respiratory Rate 15 01/09/19 15:15 Blood Pressure 106/56 L 01/09/19 15:15 Blood Pressure Position Supine 01/09/19 15:15 Pulse Oximetry 94 L 01/09/19 15:15 Oxygen Delivery Method Room Air 01/09/19 15:15 Oxygen Flow Rate 0 01/09/19 15:15 Pain Level 2 01/09/19 15:15
--- NOTE | 2019-01-09 15:39 | DI.CT_ITS ---
SYMPTOM/DIAGNOSIS: LETHARGY NONCONTRAST HEAD CT: Comparison is made with 04/16/15. The ventricles and sulci are consistent with the patient's age. There are areas of decreased attenuation in the white matter most suggestive of small vessel ischemic disease. No acute intracranial infarct, hemorrhage, midline shift or mass effect is identified. The ventricles are intact. The basilar cisterns are patent. The visualized paranasal sinuses are clear. The mastoid air cells are well pneumatized. The calvarium is intact. IMPRESSION: No acute intracranial process.
[2019-01-09 15:41] LABS: Bilirubin Small (Negative); Blood Negative (Negative); Clarity Sl Cloudy; Glucose Negative (Negative); Ketones Negative (Negative); Leukocyte Esterase Trace (Negative); Nitrite Negative (Negative); Specific Gravity >= 1.030 (1.005-1.025); pH 5.5 (5-8)
--- NOTE | 2019-01-09 15:41 | DI.RAD_ITS ---
SYMPTOM/DIAGNOSIS: COUGH, FEVER, ? PNEUMONIA FRONTAL AND LATERAL CHEST: Comparison is made with 08/17/18. There is poor inspiration. Heart size is at the upper limits of normal to mildly enlarged. Pulmonary vasculature is within normal limits. No focal consolidating infiltrates are seen. There is blunting of the left costophrenic angle which may represent a small left pleural effusion. No pneumothorax or right pleural effusion is seen. There is deformity of the right shoulder with findings suspicious for an anterior dislocation. Surgical clips are seen in the right upper quadrant of the abdomen. IMPRESSION: 1. Findings suggesting a small left pleural effusion. 2. Findings suggestive of a right shoulder anterior dislocation. The findings were discussed with the ER on 01/11/19.
[2019-01-09 15:48] LABS: C & S Indicated? No/Sq. Contamination
[2019-01-09 16:02] LABS: Abs Immature Grans 0.03 k/cumm (0.0-0.09); Absolute Basophil Count 0.01 k/cumm (0.0-0.2); Absolute Lymphocyte Count 1.33 k/cumm (1.2-3.4); Absolute Monocyte Count 0.81 k/cumm (0.11-0.7); Absolute Neutrophil Count 7.81 k/cumm (1.2-6.7); Basophils % 0.1; HCT 37.3 % (36.0-46.0); HGB 11.6 g/dL (12.0-15.5); Immature Grans % 0.3; Lymphocytes % 13.3; Mean Corp. HGB Concentration 31.1 g/dL (32.0-36.0); Mean Corpuscular Hemoglobin 28.2 pg (27.0-33.0); Mean Corpuscular Volume 90.8 fL (80-95); Mean Platelet Volume 10.2 fL (8.0-11.0); Monocytes % 8.1; Neutrophils % 78.2; Platelet Count 274 x1000/uL (130-400); RBC 4.11 m/cumm (4.00-5.20); RBC Distribution Width 18.5 % (11.7-14.6); White Blood Cell Count 9.99 k/cumm (4.4-10.8)
[2019-01-09] MEDS: Normal Saline 1,000 ML 200 ML IV (16:10)
[2019-01-09 16:21] LABS: Lipase 110 U/L (73-393); Magnesium 1.7 mg/dL (1.8-2.4)
[2019-01-09 16:24] LABS: ALT 8 U/L (12-78); AST 24 U/L (15-37); Albumin 2.5 g/dL (3.4-5.0); Alkaline Phosphatase 88 U/L (46-116); Anion Gap 5.4 mmol/L (3-11); BUN 34 mg/dL (7-18); Bilirubin, Total 0.6 mg/dL (0.2-1.0); CO2 37.6 mmol/L (21.0-32.0); CREATININE 1.29 mg/dL (0.55-1.02); Calcium 9.8 mg/dL (8.5-10.1); Chloride 100 mmol/L (98-107); Estimated GFR 39.76 (mL/min/1.73m2); Glucose 114 mg/dL (70-100); Potassium 3.1 mmol/L (3.5-5.1); Sodium 143 mmol/L (136-145); Total Protein 5.8 g/dL (6.4-8.2)
[2019-01-09 16:32] LABS: Anisocytosis 2+; Diff Comment RBC Morph Reviewed; Hypochromasia 2+; Poikilocytes 1+
--- NOTE | 2019-01-09 16:36 | DI.CT_ITS ---
SYMPTOM/DIAGNOSIS: ABD PAIN ABDOMEN AND PELVIC CT: CT scan of the abdomen and pelvis was performed without intravenous contrast material. Comparison is made with . There is again seen elevation of the right hemidiaphragm. There are infiltrates seen in the right lower, left lower and right middle lobes. These areas may represent atelectasis or scarring. Pneumonia cannot be excluded. The lack of IV contrast does limit evaluation of the abdominal and pelvic organs. The unenhanced liver, spleen and adrenal glands are unremarkable. The patient is status post cholecystectomy. There is fatty atrophy of the pancreas. There are bilateral renal cysts. The largest cyst on the right kidney measures 3.4 cm. The largest cyst on the left kidney measures 1.5 cm. The urinary bladder is intact. The reproductive organs are unremarkable. There is atherosclerosis of the abdominal aorta. There is an IVC filter distal to the renal veins. No significant abdominal or pelvic, adenopathy, ascites or pneumoperitoneum is seen. The rectum is distended to 6.8 cm. with fecal material. There is question of mild thickening of the wall of the rectum. This may represent fecal impaction/constipation. Stercoral colitis cannot be excluded. The remainder of the bowel shows no evidence of obstruction or inflammation. No findings to suggest an acute appendicitis are present. There are again seen post surgical changes of a ventral hernia repair with mesh. There is again seen some laxity in the mesh in the inferior aspect and unremarkable small bowel is seen within the defect. No evidence of strangulation or obstruction of the bowel is seen. There are degenerative changes seen throughout the visualized thoracic and lumbar spines. There is an S type scoliosis of the thoracolumbar spine noted. IMPRESSION: 1. Ventral hernia with hernia repair. Laxity is again seen in the lower aspect of the hernia mesh and contains unremarkable loops of small bowel. 2. Opacities in the right middle and both lower lobes. This may represent atelectasis, pneumonia or scarring. 3. Distended rectum with fecal material. The findings would be consistent with fecal impaction and constipation. Stercoral colitis cannot be excluded.
--- NOTE | 2019-01-09 17:20 | DI.VRAD_ITS ---
EXAM: CT Head Without Contrast EXAM DATE/TIME: 01/09/2019 3:41 PM CLINICAL HISTORY: 78 years old, female; Signs and symptoms; Other: Lethargy TECHNIQUE: Axial computed tomography images of the head/brain without contrast. Coronal and sagittal reformatted images were created and reviewed. COMPARISON: CT HEAD WITHOUT CONTRAST 04/16/2015 10:13 AM FINDINGS: Brain: No acute intracranial hemorrhage. There is moderate diffuse heterogeneity of the white matter attenuation, consistent with chronic white matter ischemic changes. Moderate cerebral atrophy Ventricles: Normal. No ventriculomegaly. Bones/joints: Unremarkable. No acute fracture. Sinuses: Visualized sinuses are unremarkable. No acute sinusitis. Mastoid air cells: Visualized mastoid air cells are unremarkable. No mastoid effusion. Soft tissues: Unremarkable. IMPRESSION: No acute intracranial hemorrhage. Dictated and Authenticated by: Flavio Evans MD. Ordering:KY Magallon MD
--- NOTE | 2019-01-09 17:28 | DI.VRAD_ITS ---
EXAM: CT Abdomen and Pelvis Without Contrast EXAM DATE/TIME: 01/09/2019 4:36 PM CLINICAL HISTORY: 78 years old, female; Pain; Abdominal pain; Generalized TECHNIQUE: Axial computed tomography images of the abdomen and pelvis without contrast. Coronal and sagittal reformatted images were created and reviewed. COMPARISON: CT ABDOMEN PELVIS WO 08/15/2018 6:30 PM FINDINGS: Lower thorax: Coronary artery calcifications may indicate coronary artery disease Opacities in the right middle lobe and both lower lobes may represent atelectasis or pneumonia. ABDOMEN: Liver: Normal. No mass. Gallbladder and bile ducts: Cholecystectomy Pancreas: Normal. No ductal dilation. Spleen: Normal. No splenomegaly. Adrenals: Normal. No mass. Kidneys and ureters: 3.4 cm right renal cyst.. 1.6 cm right renal cyst 1.5 cm left renal cyst Stomach and bowel: Rectum is distended 6.8 cm with fecal material. Findings consistent with fecal impaction and constipation. Herniorrhaphy in the anterior aspect of the pelvis Appendix: No evidence of appendicitis. PELVIS: Bladder: Unremarkable as visualized. Reproductive: Unremarkable as visualized. ABDOMEN and PELVIS: Intraperitoneal space: Normal. No free air. No significant fluid collection. Bones/joints: Scoliosis Soft tissues: Ventral hernia contains herniorrhaphy mesh and recurrent hernia. It contains Multiple loops of small bowel which are not dilated. Vasculature: Inferior vena cava filter distal to the renal veins Lymph nodes: Normal. No enlarged lymph nodes. IMPRESSION: 1. Ventral hernia contains herniorrhaphy mesh and recurrent hernia. It contains Multiple loops of small bowel which are not dilated. Herniorrhaphy in the anterior aspect of the pelvis 2. Opacities in the right middle lobe and both lower lobes may represent atelectasis or pneumonia. 3. Rectum is distended 6.8 cm with fecal material. Findings consistent with fecal impaction and constipation. Dictated and Authenticated by: Flavio Evans MD. Ordering:KY Magallon MD
[2019-01-09] MEDS: Aspirin 81 MG CHEW 324 MG CH (17:36)
[2019-01-09 17:38] LABS: INR 1.3 (0.9-1.1); PTT Activated 26.4 sec (21.0-31.4); Prothrombin Time 12.9 sec (9.3-11.0)
--- NOTE | 2019-01-09 18:10 | DI.VRAD_ITS ---
EXAM: XR Chest, 2 Views EXAM DATE/TIME: 01/09/2019 3:41 PM CLINICAL HISTORY: 78 years old, female; Signs and symptoms; Other: Lethargy TECHNIQUE: XR of the chest, 2 views. COMPARISON: SC XR PORTABLE CHEST AP 08/17/2018 8:14 AM FINDINGS: Lungs: Unremarkable. No consolidation. Pleural space: Blunting in the left costophrenic angle may represent small left pleural effusion. Heart/Mediastinum: Mild cardiomegaly. Upper abdomen: Stable surgical clips in the right upper quadrant Bones/joints: Unremarkable. IMPRESSION: Blunting in the left costophrenic angle may represent small left pleural effusion. Dictated and Authenticated by: Flavio Evans MD. Ordering:KY Magallon MD
[2019-01-09 19:17] LABS: Troponin I 0.37 ng/mL (0.00-0.06)
[2019-01-09] MEDS: Normal Saline Flush 10 ML SYR IVP (21:22)
--- NOTE | 2019-01-09 21:46 | HPE_ITS ---
Date of service: 01/09/19 Time of Service: 21:46 Assessment and Plan (1) NSTEMI (non-ST elevated myocardial infarction): Start date: 01/09/19 Current visit: Yes Status: Acute This is a 78-year-old lady who presented with abdominal discomfort from obstipation but had positive troponins with no acute ST-T changes on EKG. She had rising but is on her second measurement and discussed with [facility] cardiology was that she could be transferred for further investigation if she was not wanting antiplatelet or anticoagulation therapy there may be little that they could offer. This discussion will be reviewed in the morning with family after trending troponins overnight patient comfortable with addition of atorvastatin and low-dose aspirin to her medical regimen and continuation of Coreg and lisinopril. She was comfortable with no chest pain at the time of my exam th ough she has chronic pain and did have some complaints of discomfort over her chest to the nurse upon admission. She is a DNR/DNI and this will be respected. (2) UTI (urinary tract infection): Start date: 01/08/19 Current visit: No Status: Acute Patient will be continued on Rocephin IV and converted back to Keflex once urine cultures and ID is can be evaluated. Hopefully there is an outpatient urine culture performed for follow-up. This does not appear to be a primary problem presently. (3) Obstipation: Current visit: Yes Status: Acute Patient had abdominal pain probably from mild obstruction with her impacted stool which resolved when she had a bowel movement. She does have an abdominal hernia which appears to have recurred with previous surgery and mesh placement. There does not appear to be any obstructive signs or symptoms presently. Observe for complications and reevaluate chronic use of narcotics at home. If she does use chronic narcotic she should be on a better bowel regimen. History of Present Illness Chief Complaint: Abdominal pain and not feeling well Narrative: This is an 78-year-old lady, chronically ill and careful at home by her family being status post left BKA not appearing to be very active at home. She presented complaining of abdominal pain with not having a bowel movement for several days and is on Vicodin on a schedule at home with tramadol as needed. She takes this for pain not focalizing where she has her chronic pain other than probable chronic arthritic pain. She had a bowel movement in the emergency room and her bowel pain did somewhat subside. A CT scan did show fecal impaction and a recurrent hernia with hernia mesh in place. There was no mention of obstruction. She recently has not been feeling well and did not visit her PMD and was diagnosed with UTI starting on Keflex. She presented to the ED because she continued to have abdominal discomfort and did not feel well. She had no complaints of chest pain or shortness of breath in the ED did have some complaints of chest discomfort to the nurse wants admitted to [facility]. When I examined her and questioned her she was not having chest pain. She appears to have chronic pain, chronic immobilization and is a DNR/DNI status post hemorrhagic CVA but has no marked neurological deficits obvious with examination of the patient lying in bed. It does not appear that she is ambulatory at home and does not have a prosthesis for left BKA., In the ED she did have a positive troponin which elevated slightly on the second measurement and long discussion with [facility] cardiology about possible transfer included patient and family desire not to have antiplatelet therapy or anticoagulation because of previous hemorrhage. She is status post Mason filter which did cause some swelling in lower extremities initially but that is not a problem presently. This is still in place. As stated she is a DNR/DNI and is already on Coreg and lisinopril but I will add statin and low-dose aspirin to her regimen. She is not having active chest pain or active EKG changes and medical treatment may be more appropriate than transferring catheterization though this discussion can be revisited in the morning. She will be kept overnight on telemetry with trending troponins and comfort measures with pain control. I will add atorvastatin 40 mg to her regimen. Review of Systems Review of Systems 13 point review of systems otherwise unrevealing or stable with patient chronically debilitated in bed status post left BKA, obese and having chronic muscular skeletal pain on narcotics. She also has chronic constipation with her narcotic use. 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), ankle and foot (Chronic) Venous stasis of lower extremity (Chronic) H/O: GI bleed (Chronic) H/O: CVA (cerebrovascular accident) (Chronic) Congenital deformities of feet (Chronic) CHF (congestive heart failure) (Chronic) History of left below knee amputation (Chronic) Presence of IVC filter (Chronic) Chronic congestive heart failure Essential hypertension 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 Meds Home Medications Medication Instructions Recorded Confirmed Type ropinirole 1 mg PO HS #60 tab 04/10/13 01/09/19 Rx gabapentin 400 - 800 mg PO BID 01/27/15 01/09/19 History carvedilol 3.125 mg PO BID 03/29/15 01/07/19 History cyanocobalamin (vitamin B-12) 2,000 mcg PO QAM 03/29/15 01/09/19 History [Vitamin B-12] Stool Softener 1 cap PO BID PRN PRN #0 05/02/15 01/09/19 Rx Lactobacillus acidophilus 1 cap PO BID 08/15/18 01/09/19 History [Acidophilus] acetaminophen 650 mg PO Q4H PRN 08/15/18 01/09/19 History bisacodyl 1 ea [place] DIRECTED 08/15/18 01/09/19 History magnesium hydroxide [Milk of 30 ml PO PRN PRN 08/15/18 01/09/19 History Magnesia] polyethylene glycol 3350 17 g PO QAM 08/15/18 01/09/19 History pantoprazole [Protonix] 40 mg PO BID #60 tab 08/18/18 01/07/19 Rx cephalexin [Keflex] 500 mg PO QID 01/09/19 01/09/19 History hydrocodone-acetaminophen 1 tab PO TID 01/09/19 01/09/19 History lisinopril 20 mg PO DAILY 01/09/19 01/09/19 History loperamide 2 mg PO PRN PRN 01/09/19 01/09/19 History ondansetron HCl 4 mg PO Q8H 01/09/19 01/09/19 History pramoxine [Sarna Sensitive] 1 applic TOPICAL DAILY 01/09/19 01/09/19 History tramadol 50 mg PO QID PRN 01/09/19 01/09/19 History Allergies Allergy/AdvReac Type Severity Reaction Status Date / Time Sulfa (Sulfonamide Allergy Intermediate Contraindic Unverified 01/09/19 15:38 Antibiotics) ated metoclopramide HCl AdvReac Mild Diarrhea Unverified 01/09/19 15:38 [From [facility]] Exam Narrative Exam Narrative: General: Patient appears older than stated age and is comfortable lying still in bed and very conversant in no distress and alert and oriented at least to person and place. She is overweight. HEENT: Normocephalic with eyes revealing pupils equal react to light symmetri charly, extra ocular movement intact and sclera anicteric. Oropharynx with moist mucosa and fair dentition. Ears normal. Neck: Supple without JVD. Heart: Systolic murmur over left sternal border with irregular rhythm having frequent extrasystoles. No gallops or rubs appreciated. Breast: Without masses. Lungs: Clear to auscultation with bronchovesicular breath sounds diffusely. No focalizing rales or rhonchi. Abdomen: Mildly protuberant but soft and no focalizing tenderness or rebound. No palpable hepatomegaly. Surgical scars are present. Genitalia rectal exam: Deferred with patient wearing diaper. Extremities: Left BKA with well-healed stump scar, no pitting edema or cyanosis shiny atrophic skin of the lower extremities below the knee. Peripheral pulses are grossly intact. Skin: Pale, warm and dry. No rashes. Neuro: No grossly focalizing motor deficits, cranial nerves II through XII appear to be grossly intact. Psych: Euphoric at times during her discussion very talkative. Memory appears to be grossly intact. Results Imaging Additional studies: CT Abdomen and Pelvis Without Contrast EXAM DATE/TIME: 01/09/2019 4:36 PM CLINICAL HISTORY: 78 years old, female; Pain; Abdominal pain; Generalized TECHNIQUE: Axial computed tomography images of the abdomen and pelvis without contrast. Coronal and sagittal reformatted images were created and reviewed. COMPARISON: CT ABDOMEN PELVIS WO 08/15/2018 6:30 PM FINDINGS: Lower thorax: Coronary artery calcifications may indicate coronary artery disease Opacities in the right middle lobe and both lower lobes may represent atelectasis or pneumonia. ABDOMEN: Liver: Normal. No mass. Gallbladder and bile ducts: Cholecystectomy Pancreas: Normal. No ductal dilation. Spleen: Normal. No splenomegaly. Adrenals: Normal. No mass. Kidneys and ureters: 3.4 cm right renal cyst.. 1.6 cm right renal cyst 1.5 cm left renal cyst Stomach and bowel: Rectum is distended 6.8 cm with fecal material. Findings consistent with fecal impaction and constipation. Herniorrhaphy in the anterior aspect of the pelvis Appendix: No evidence of appendicitis. PELVIS: Bladder: Unremarkable as visualized. Reproductive: Unremarkable as visualized. ABDOMEN and PELVIS: Intraperitoneal space: Normal. No free air. No significant fluid collection. Bones/joints: Scoliosis Soft tissues: Ventral hernia contains herniorrhaphy mesh and recurrent hernia. It contains Multiple loops of small bowel which are not dilated. Vasculature: Inferior vena cava filter distal to the renal veins Lymph nodes: Normal. No enlarged lymph nodes. IMPRESSION: 1. Ventral hernia contains herniorrhaphy mesh and recurrent hernia. It contains Multiple loops of small bowel which are not dilated. Herniorrhaphy in the anterior aspect of the pelvis 2. Opacities in the right middle lobe and both lower lobes may represent atelectasis or pneumonia. 3. Rectum is distended 6.8 cm with fecal material. Findings consistent with fecal impaction and constipation. Dictated and Authenticated by: Flavio Evans MD. CT Head Without Contrast EXAM DATE/TIME: 01/09/2019 3:41 PM CLINICAL HISTORY: 78 years old, female; Signs and symptoms; Other: Lethargy TECHNIQUE: Axial computed tomography images of the head/brain without contrast. Coronal and sagittal reformatted images were created and reviewed. COMPARISON: CT HEAD WITHOUT CONTRAST 04/16/2015 10:13 AM FINDINGS: Brain: No acute intracranial hemorrhage. There is moderate diffuse heterogeneity of the white matter attenuation, consistent with chronic white matter ischemic changes. Moderate cerebral atrophy Ventricles: Normal. No ventriculomegaly. Bones/joints: Unremarkable. No acute fracture. Sinuses: Visualized sinuses are unremarkable. No acute sinusitis. Mastoid air cells: Visualized mastoid air cells are unremarkable. No mastoid effusion. Soft tissues: Unremarkable. IMPRESSION: No acute intracranial hemorrhage. Dictated and Authenticated by: Flavio Evans MD. XR Chest, 2 Views EXAM DATE/TIME: 01/09/2019 3:41 PM CLINICAL HISTORY: 78 years old, female; Signs and symptoms; Other: Lethargy TECHNIQUE: XR of the chest, 2 views. COMPARISON: SC XR PORTABLE CHEST AP 08/17/2018 8:14 AM FINDINGS: Lungs: Unremarkable. No consolidation. Pleural space: Blunting in the left costophrenic angle may represent small left pleural effusion. Heart/Mediastinum: Mild cardiomegaly. Upper abdomen: Stable surgical clips in the right upper quadrant Bones/joints: Unremarkable. IMPRESSION: Blunting in the left costophrenic angle may represent small left pleural effusion. Dictated and Authenticated by: Flavio Evans MD. Labs : 01/09/19 15:46 01/09/19 15:46 Laboratory Results - last 24 hr 01/09/19 01/09/19 01/09/19 15:25 15:46 15:46 WBC RBC Hgb Hct MCV MCH MCHC RDW Plt Count MPV Immature Gran % Neutrophils % Lymphocytes % Monocytes % Eosinophils % Basophils % Absolute Neutrophils Absolute Lymphocytes Absolute Monocytes Absolute Eosinophils Absolute Basophils Differential Comment RBC Morphology Hypochromasia Poikilocytosis Anisocytosis PT INR APTT Sodium 143 Potassium 3.1 L Chloride 100 Carbon Dioxide 37.6 H Anion Gap 5.4 BUN 34 H Creatinine 1.29 H Estimated GFR/1.73 m2 39.76 Glucose 114 H Calcium 9.8 Magnesium 1.7 L Total Bilirubin 0.6 AST 24 ALT 8 L Alkaline Phosphatase 88 Troponin I 0.30 H* Total Protein 5.8 L Albumin 2.5 L Lipase 110 Urine Color Yellow Urine Clarity Sl cloudy Urine pH 5.5 Ur Specific Desha >= 1.030 H Urine Protein 30 H Urine Ketones Negative Urine Blood Negative Urine Nitrite Negative Urine Bilirubin Small H Urine Urobilinogen 1.0 H Ur Leukocyte Esterase Trace H Urine RBC Not Applicable Urine WBC Not Applicable Ur Epithelial Cells Urine Crystals Not Applicable Urine Bacteria Not Applicable Urine Mucus Not Applicable Ur Culture Indicated? No/sq. contamination Urine Glucose Negative 01/09/19 01/09/19 01/09/19 15:46 15:46 18:40 WBC 9.99 RBC 4.11 Hgb 11.6 L Hct 37.3 MCV 90.8 MCH 28.2 MCHC 31.1 L RDW 18.5 H Plt Count 274 MPV 10.2 Immature Gran % 0.3 Neutrophils % 78.2 Lymphocytes % 13.3 Monocytes % 8.1 Eosinophils % 0.0 Basophils % 0.1 Absolute Neutrophils 7.81 H Absolute Lymphocytes 1.33 Absolute Monocytes 0.81 H Absolute Eosinophils 0.00 Absolute Basophils 0.01 Differential Comment Rbc morph reviewed RBC Morphology See below Hypochromasia 2+ Poikilocytosis 1+ Anisocytosis 2+ PT 12.9 H INR 1.3 H APTT 26.4 Sodium Potassium Chloride Carbon Dioxide Anion Gap BUN Creatinine Estimated GFR/1.73 m2 Glucose Calcium Magnesium Total Bilirubin AST ALT Alkaline Phosphatase Troponin I 0.37 H* Total Protein Albumin Lipase Urine Color Urine Clarity Urine pH Ur Specific Desha Urine Protein Urine Ketones Urine Blood Urine Nitrite Urine Bilirubin Urine Urobilinogen Ur Leukocyte Esterase Urine RBC Urine WBC Ur Epithelial Cells Urine Crystals Urine Bacteria Urine Mucus Ur Culture Indicated? Urine Glucose Last Vital Signs Temp 37.1 C 01/09/19 15:15 Pulse 89 01/09/19 15:15 Resp 15 01/09/19 15:15 BP 106/56 L 01/09/19 15:15 Pulse Ox 94 L 01/09/19 15:15
[2019-01-10] VITALS (18 sets, daily range): BP systolic 84–135; BP diastolic 47–87; PULSE 44–91; RESP 12–25; TEMP 35.4–36.3; O2SAT 91–99
[2019-01-10 00:13] LABS: TSH (W/Ref FT4) 0.45 uIU/mL (0.358-3.74)
[2019-01-10 00:17] LABS: Troponin I 0.32 ng/mL (0.00-0.06)
[2019-01-10] MEDS: rOPINIRole 0.5 MG TAB 1 MG PO ×2 (00:41→22:36)
[2019-01-10] MEDS: Ondansetron 4 MG TAB PO ×3 (00:41→22:36)
[2019-01-10] MEDS: Normal Saline 1,000 ML 125 ML IV (01:50)
[2019-01-10] MEDS: HYDROcodone 10/Acetaminophen 325 TAB PO ×2 (02:34→05:54)
[2019-01-10 04:26] LABS: Troponin I 0.28 ng/mL (0.00-0.06)
[2019-01-10] MEDS: MORPHine 2 MG/ML SYR IVP (05:50)
[2019-01-10 07:14] LABS: HCT 33.2 % (36.0-46.0); HGB 10.2 g/dL (12.0-15.5); Mean Corp. HGB Concentration 30.7 g/dL (32.0-36.0); Mean Corpuscular Hemoglobin 28.2 pg (27.0-33.0); Mean Corpuscular Volume 91.7 fL (80-95); Mean Platelet Volume 10.5 fL (8.0-11.0); Platelet Count 205 x1000/uL (130-400); RBC 3.62 m/cumm (4.00-5.20); RBC Distribution Width 18.3 % (11.7-14.6); White Blood Cell Count 7.98 k/cumm (4.4-10.8)
--- NOTE | 2019-01-10 07:34 | PDOC.CMIN ---
Care Management Initial Assess REASON FOR HOSPITALIZATION:: NSTEMI, UTI PAST MEDICAL HISTORY/PAST SURGICAL HISTORY:: Medical: CVA, chronic anticoagulation for prior DVT and PE, chronic neck pain, HTN, H/O peptic ulcer disease, DJD knees and ankles, congenital deformity philomena feet and ankles, H/O LE cellulitis, polymyalgia rheumatica, chronic venous stasis, H/O migraine headaches, obesity, hypercholesterolemia, restless leg syndrome, H/O rectal fissure bleed, CHF. Surgical: cholecystectomy, IVC filter placement, ovarian cyst drainage, rectal fissure repair, sigmoid hemicolectomy and diverting colostomy, reversal of colostomy, ventral hernia repair. PREVIOUS FUNCTIONAL STATUS/SOCIAL/FAMILY SUPPORTS:: Fay resides with her Kaushal, and son, Cail in their home in [place]; Cali assists with ADLs including transportation. Fay is mostly independent with ADL's. They have 2 additional sons nearby and a daughter who lives in [place] as well. CURRENT FUNCTIONAL STATUS:: Fay was sleeping when CM attempted to meet with her; CM will continue to follow. ADVANCE DIRECTIVES:: On file at [facility] agentTish Meanse Has patient been provided with information about the portal?: Yes Did the patient sign up for the portal?: No CODE STATUS:: DNR/DNI INSURANCE COVERAGE / FINANCIAL ISSUES:: Medicare. Medicaid CURRENT HOME/COMMUNITY SERVICES/EQUIPMENT:: [employer] Mod[employer]; cushion maker 2 times a week and Rehana Nadiya; CM. Has a cane, walker, ramp, raised toilet seat, hand shower, handrails, w/c at home. PRIMARY CARE PHYSICIAN:: [facility] POTENTIAL DISCHARGE NEEDS:: Follow up appointment with PCP. PATIENT/FAMILY EDUCATION NEEDS:: Discharge education, review of discharge instructions; discuss Ask Me Three. Review community based supports. ANTICIPATED BARRIERS TO DISCHARGE:: None identified at this time. TRANSPORTATION:: TBD by disposition. PLAN:: Per MD, Fay is currently ambivalent regarding transfer. He reports anticipating contact from [facility] this morning with transfer determination. Fay will likely [id number] home with increased services, CM will continue to follow.
--- NOTE | 2019-01-10 07:39 | INITIAL_ITS ---
Care Management Initial Assess REASON FOR HOSPITALIZATION:: NSTEMI, UTI PAST MEDICAL HISTORY/PAST SURGICAL HISTORY:: Medical: CVA, chronic anticoagulation for prior DVT and PE, chronic neck pain, HTN, H/O peptic ulcer disease, DJD knees and ankles, congenital deformity philomena feet and ankles, H/O LE cellulitis, polymyalgia rheumatica, chronic venous stasis, H/O migraine headaches, obesity, hypercholesterolemia, restless leg syndrome, H/O rectal fissure bleed, CHF. Surgical: cholecystectomy, IVC filter placement, ovarian cyst drainage, rectal fissure repair, sigmoid hemicolectomy and diverting colostomy, reversal of colostomy, ventral hernia repair. PREVIOUS FUNCTIONAL STATUS/SOCIAL/FAMILY SUPPORTS:: Fay resides with her Kaushal, and son, Cali in their home in [place]; Cali assists with ADLs including transportation. Fay is mostly independent with ADL's. They have 2 additional sons nearby and a daughter who lives in [place] as well. CURRENT FUNCTIONAL STATUS:: Fay was sleeping when CM attempted to meet with her; CM will continue to follow. ADVANCE DIRECTIVES:: On file at [facility] agentTish Meanse Has patient been provided with information about the portal?: Yes Did the patient sign up for the portal?: No CODE STATUS:: DNR/DNI INSURANCE COVERAGE / FINANCIAL ISSUES:: Medicare. Medicaid CURRENT HOME/COMMUNITY SERVICES/EQUIPMENT:: [employer] Moderate; tank maker wood 2 times a week and Rehana Nadiya; CM. Has a cane, walker, ramp, raised toilet seat, hand shower, handrails, w/c at home. PRIMARY CARE PHYSICIAN:: [facility] POTENTIAL DISCHARGE NEEDS:: Follow up appointment with PCP. PATIENT/FAMILY EDUCATION NEEDS:: Discharge education, review of discharge instructions; discuss Ask Me Three. Review community based supports. ANTICIPATED BARRIERS TO DISCHARGE:: None identified at this time. TRANSPORTATION:: TBD by disposition. PLAN:: Per MD, Fay is currently ambivalent regarding transfer. He reports anticipating contact from [facility] this morning with transfer determination. Fay will likely [id number] home with increased services, CM will continue to follow.
[2019-01-10 07:51] LABS: AST 18 U/L (15-37); Alkaline Phosphatase 75 U/L (46-116); Anion Gap 2.6 mmol/L (3-11); BUN 32 mg/dL (7-18); Bilirubin, Total 0.6 mg/dL (0.2-1.0); CO2 35.4 mmol/L (21.0-32.0); CREATININE 1.08 mg/dL (0.55-1.02); Calcium 8.7 mg/dL (8.5-10.1); Chloride 103 mmol/L (98-107); Estimated GFR 48.81 (mL/min/1.73m2); Glucose 83 mg/dL (70-100); Potassium 3.1 mmol/L (3.5-5.1); Sodium 141 mmol/L (136-145); Total Protein 4.9 g/dL (6.4-8.2)
[2019-01-10 07:53] LABS: ALT < 6 U/L (12-78)
[2019-01-10] MEDS: Polyethylene Glycol 3350 17 GM PACKET PO (08:35)
[2019-01-10] MEDS: Cyanocobalamin 500 MCG TAB 2000 MCG PO (08:41)
[2019-01-10] MEDS: Lactobacillus Acidophilus CAP 1 CAP PO ×2 (08:42→19:34)
[2019-01-10] MEDS: Gabapentin 300 MG CAP PO ×2 (08:42→19:34)
[2019-01-10] MEDS: Atorvastatin 40 MG TAB PO (08:42)
[2019-01-10] MEDS: Pantoprazole 40 MG TABCR PO ×2 (08:42→19:34)
[2019-01-10] MEDS: Lisinopril 20 MG TAB PO (08:42)
[2019-01-10] MEDS: Aspirin 81 MG CHEW PO (08:42)
[2019-01-10] MEDS: Carvedilol 3.125 MG TAB PO ×2 (08:43→19:34)
--- NOTE | 2019-01-10 10:58 | W.PM.PROGNOT ---
Objective Objective Clinical Data: Abnormal lab results 01/09/19 01/09/19 01/09/19 Range/Units 15:25 15:46 15:46 RBC (4.00-5.20) m/cumm Hgb (12.0-15.5) g/dL Hct (36.0-46.0) % MCHC (32.0-36.0) g/dL RDW (11.7-14.6) % Absolute Neutrophils (1.2-6.7) k/cumm Absolute Monocytes (0.11-0.7) k/cumm PT (9.3-11.0) sec INR (0.9-1.1) Potassium 3.1 L (3.5-5.1) mmol/L Carbon Dioxide 37.6 H (21.0-32.0) mmol/L Anion Gap (3-11) mmol/L BUN 34 H (7-18) mg/dL Creatinine 1.29 H (0.55-1.02) mg/dL Glucose 114 H (70-100) mg/dL Magnesium 1.7 L (1.8-2.4) mg/dL ALT 8 L (12-78) U/L Troponin I 0.30 H* (0.00-0.06) ng/mL Total Protein 5.8 L (6.4-8.2) g/dL Albumin 2.5 L (3.4-5.0) g/dL Ur Specific [place] >= 1.030 H (1.005-1.025) Urine Protein 30 H (Negative) mg/dL Urine Bilirubin Small H (Negative) Urine Urobilinogen 1.0 H (Up TO 0.2) EU/dL Ur Leukocyte Esterase Trace H (Negative) 01/09/19 01/09/19 01/09/19 Range/Units 15:46 15:46 18:40 RBC (4.00-5.20) m/cumm Hgb 11.6 L (12.0-15.5) g/dL Hct (36.0-46.0) % MCHC 31.1 L (32.0-36.0) g/dL RDW 18.5 H (11.7-14.6) % Absolute Neutrophils 7.81 H (1.2-6.7) k/cumm Absolute Monocytes 0.81 H (0.11-0.7) k/cumm PT 12.9 H (9.3-11.0) sec INR 1.3 H (0.9-1.1) Potassium (3.5-5.1) mmol/L Carbon Dioxide (21.0-32.0) mmol/L Anion Gap (3-11) mmol/L BUN (7-18) mg/dL Creatinine (0.55-1.02) mg/dL Glucose (70-100) mg/dL Magnesium (1.8-2.4) mg/dL ALT (12-78) U/L Troponin I 0.37 H* (0.00-0.06) ng/mL Total Protein (6.4-8.2) g/dL Albumin (3.4-5.0) g/dL Ur Specific [place] (1.005-1.025) Urine Protein (Negative) mg/dL Urine Bilirubin (Negative) Urine Urobilinogen (Up TO 0.2) EU/dL Ur Leukocyte Esterase (Negative) 01/09/19 01/10/19 01/10/19 Range/Units 23:40 03:45 06:05 RBC (4.00-5.20) m/cumm Hgb (12.0-15.5) g/dL Hct (36.0-46.0) % MCHC (32.0-36.0) g/dL RDW (11.7-14.6) % Absolute Neutrophils (1.2-6.7) k/cumm Absolute Monocytes (0.11-0.7) k/cumm PT (9.3-11.0) sec INR (0.9-1.1) Potassium 3.1 L (3.5-5.1) mmol/L Carbon Dioxide 35.4 H (21.0-32.0) mmol/L Anion Gap 2.6 L (3-11) mmol/L BUN 32 H (7-18) mg/dL Creatinine 1.08 H (0.55-1.02) mg/dL Glucose (70-100) mg/dL Magnesium (1.8-2.4) mg/dL ALT < 6 L (12-78) U/L Troponin I 0.32 H* 0.28 H* (0.00-0.06) ng/mL Total Protein 4.9 L (6.4-8.2) g/dL Albumin 2.0 L (3.4-5.0) g/dL Ur Specific [place] (1.005-1.025) Urine Protein (Negative) mg/dL Urine Bilirubin (Negative) Urine Urobilinogen (Up TO 0.2) EU/dL Ur Leukocyte Esterase (Negative) 01/10/19 Range/Units 06:05 RBC 3.62 L (4.00-5.20) m/cumm Hgb 10.2 L (12.0-15.5) g/dL Hct 33.2 L (36.0-46.0) % MCHC 30.7 L (32.0-36.0) g/dL RDW 18.3 H (11.7-14.6) % Absolute Neutrophils (1.2-6.7) k/cumm Absolute Monocytes (0.11-0.7) k/cumm PT (9.3-11.0) sec INR (0.9-1.1) Potassium (3.5-5.1) mmol/L Carbon Dioxide (21.0-32.0) mmol/L Anion Gap (3-11) mmol/L BUN (7-18) mg/dL Creatinine (0.55-1.02) mg/dL Glucose (70-100) mg/dL Magnesium (1.8-2.4) mg/dL ALT (12-78) U/L Troponin I (0.00-0.06) ng/mL Total Protein (6.4-8.2) g/dL Albumin (3.4-5.0) g/dL Ur Specific [place] (1.005-1.025) Urine Protein (Negative) mg/dL Urine Bilirubin (Negative) Urine Urobilinogen (Up TO 0.2) EU/dL Ur Leukocyte Esterase (Negative) Vital Signs Temperature 36.1 C L 01/10/19 06:44 Temperature Source Tympanic 01/10/19 06:44 Pulse 59 L 01/10/19 08:29 Pulse Rhythm Irregular 01/10/19 03:15 Pulse 78 01/10/19 08:29 Respiratory Rate 14 01/10/19 08:29 Respiratory Effort 01/10/19 03:15 Respiratory Depth Normal 01/10/19 03:15 Respiratory Pattern Normal 01/09/19 23:29 Blood Pressure 120/52 L 01/10/19 08:29 Blood Pressure Mean 69 01/10/19 08:29 Blood Pressure Position Supine 01/09/19 23:29 Pulse Oximetry 95 01/10/19 08:29 Oxygen Delivery Method Nasal Cannula 01/10/19 06:44 Oxygen Flow Rate 3 01/10/19 06:44 Pain Level 8 01/10/19 05:50 Comment 01/10/19 06:44 Intake & Output 01/09/19 01/09/19 01/10/19 11:59 23:59 11:59 Intake Total 1050 / 1050 2068.333 / 2068.333 Output Total 125 / 125 Balance 1050 / 1050 1943.333 / 1943.333 Weight 61.6 kg 61.6 kg Intake: IV 1050 / 1050 1708.333 / 1708.333 Oral 360 / 360 Output: Urine 125 / 125 Other: Urine Color Dark [place] Urine Appearance Clear Urine Odor Normal Voiding Methods Bedpan Laboratory Results WBC 7.98 k/cumm (4.4-10.8) 01/10/19 06:05 RBC 3.62 m/cumm (4.00-5.20) L 01/10/19 06:05 Hgb 10.2 g/dL (12.0-15.5) L 01/10/19 06:05 Hct 33.2 % (36.0-46.0) L 01/10/19 06:05 MCV 91.7 fL (80-95) 01/10/19 06:05 MCH 28.2 pg (27.0-33.0) 01/10/19 06:05 MCHC 30.7 g/dL (32.0-36.0) L 01/10/19 06:05 RDW 18.3 % (11.7-14.6) H 01/10/19 06:05 Plt Count 205 x1000/uL (130-400) 01/10/19 06:05 MPV 10.5 fL (8.0-11.0) 01/10/19 06:05 Immature Gran % 0.3 01/09/19 15:46 Neutrophils % 78.2 01/09/19 15:46 Lymphocytes % 13.3 01/09/19 15:46 Monocytes % 8.1 01/09/19 15:46 Eosinophils % 0.0 01/09/19 15:46 Basophils % 0.1 01/09/19 15:46 Absolute Neutrophils 7.81 k/cumm (1.2-6.7) H 01/09/19 15:46 Absolute Lymphocytes 1.33 k/cumm (1.2-3.4) 01/09/19 15:46 Absolute Monocytes 0.81 k/cumm (0.11-0.7) H 01/09/19 15:46 Absolute Eosinophils 0.00 k/cumm (0.0-0.7) 01/09/19 15:46 Absolute Basophils 0.01 k/cumm (0.0-0.2) 01/09/19 15:46 Differential Comment Rbc morph reviewed 01/09/19 15:46 RBC Morphology See below 01/09/19 15:46 Hypochromasia 2+ 01/09/19 15:46 Poikilocytosis 1+ 01/09/19 15:46 Anisocytosis 2+ 01/09/19 15:46 PT 12.9 sec (9.3-11.0) H 01/09/19 15:46 INR 1.3 (0.9-1.1) H 01/09/19 15:46 APTT 26.4 sec (21.0-31.4) 01/09/19 15:46 Sodium 141 mmol/L (136-145) 01/10/19 06:05 Potassium 3.1 mmol/L (3.5-5.1) L 01/10/19 06:05 Chloride 103 mmol/L (98-107) 01/10/19 06:05 Carbon Dioxide 35.4 mmol/L (21.0-32.0) H 01/10/19 06:05 Anion Gap 2.6 mmol/L (3-11) L 01/10/19 06:05 BUN 32 mg/dL (7-18) H 01/10/19 06:05 Creatinine 1.08 mg/dL (0.55-1.02) H 01/10/19 06:05 Estimated GFR/1.73 m2 48.81 (mL/min/1.73m2) 01/10/19 06:05 Glucose 83 mg/dL (70-100) 01/10/19 06:05 Calcium 8.7 mg/dL (8.5-10.1) 01/10/19 06:05 Magnesium 1.7 mg/dL (1.8-2.4) L 01/09/19 15:46 Total Bilirubin 0.6 mg/dL (0.2-1.0) 01/10/19 06:05 AST 18 U/L (15-37) 01/10/19 06:05 ALT < 6 U/L (12-78) L 01/10/19 06:05 Alkaline Phosphatase 75 U/L (46-116) 01/10/19 06:05 Troponin I 0.28 ng/mL (0.00-0.06) H* 01/10/19 03:45 Total Protein 4.9 g/dL (6.4-8.2) L 01/10/19 06:05 Albumin 2.0 g/dL (3.4-5.0) L 01/10/19 06:05 Lipase 110 U/L (73-393) 01/09/19 15:46 TSH 0.45 uIU/mL (0.358-3.74) 01/09/19 23:40 Urine Color Yellow (Yellow) 01/09/19 15:25 Urine Clarity Sl cloudy 01/09/19 15:25 Urine pH 5.5 (5-8) 01/09/19 15:[address] [place] >= 1.030 (1.005-1.025) H 01/09/19 15:25 Urine Protein 30 mg/dL (Negative) H 01/09/19 15:25 Urine Ketones Negative mg/dL (Negative) 01/09/19 15:25 Urine Blood Negative (Negative) 01/09/19 15:25 Urine Nitrite Negative (Negative) 01/09/19 15:25 Urine Bilirubin Small (Negative) H 01/09/19 15:25 Urine Urobilinogen 1.0 EU/dL (Up TO 0.2) H 01/09/19 15:25 Ur Leukocyte Esterase Trace (Negative) H 01/09/19 15:25 Urine RBC Not Applicable 01/09/19 15:25 Urine WBC Not Applicable 01/09/19 15:25 Ur Epithelial Cells HPF (Negative) 01/09/19 15:25 Urine Crystals Not Applicable 01/09/19 15:25 Urine Bacteria Not Applicable 01/09/19 15:25 Urine Mucus Not Applicable 01/09/19 15:25 Ur Culture Indicated? No/sq. contamination 01/09/19 15:25 Urine Glucose Negative mg/dL (Negative) 01/09/19 15:25
[2019-01-10] MEDS: Normal Saline 1,000 ML 80 ML IV ×2 (11:12→23:58)
--- NOTE | 2019-01-10 12:58 | W.PM.DS.N ---
DS: Diagnosis Discharge Diagnosis (1) UTI (urinary tract infection): Status: Acute (2) Obstipation: Status: Acute (3) Elevated troponin: Status: Acute Discharge Plan Discharge Details Reason For Visit: NSTEMI,UTI Admit Date/Time: 01/09/19 21:45 Admit Provider: Hermelindo Godinez Attending Provider: Hermelindo Godinez Primary Care Provider: Randal Sainz Home Meds and New Rx's Prescriptions: No Action ropinirole 0.5 MG tablet 1 mg PO HS Qty: 60 RF: 0 gabapentin 300 MG capsule 400 - 800 mg PO BID RF: 0 carvedilol 3.125 MG tablet 3.125 mg PO BID RF: 0 cyanocobalamin (vitamin B-12) [Vitamin B-12] 500 MCG tablet 2,000 mcg PO QAM RF: 0 Stool Softener 50 MG capsule 1 cap PO BID PRN PRNQty: 0 RF: 0 acetaminophen 325 mg Tablet 650 mg PO Q4H PRNRF: 0 magnesium hydroxide [Milk of Magnesia] 400 mg/5 mL Suspension 30 ml PO PRN PRNRF: 0 bisacodyl 10 mg Suppository 1 ea [place] DIRECTED RF: 0 polyethylene glycol 3350 17 gram Powder In Packet 17 g PO QAM RF: 0 Lactobacillus acidophilus [Acidophilus] Capsule 1 cap PO BID RF: 0 pantoprazole [Protonix] 40 mg tablet,delayed release (DR/EC) 40 mg PO BID Qty: 60 RF: 0 lisinopril 20 mg Tablet 20 mg PO DAILY RF: 0 loperamide 2 mg Tablet 2 mg PO PRN PRNRF: 0 tramadol 50 mg Tablet 50 mg PO QID PRNRF: 0 Sarna Sensitive 1 % Lotion 1 applic topical DAILY RF: 0 hydrocodone-acetaminophen 1 TAB tablet 1 tab PO TID RF: 0 cephalexin [Keflex] 500 mg Capsule 500 mg PO QID RF: 0 ondansetron HCl 4 mg Tablet 4 mg PO Q8H RF: 0 DS: Data Vitals/I&O Vitals and I&O: Vital Signs Temperature 36.1 C L 01/10/19 06:44 Temperature Source Tympanic 01/10/19 06:44 Pulse 59 L 01/10/19 08:29 Pulse Rhythm Irregular 01/10/19 08:30 Pulse 78 01/10/19 08:29 Respiratory Rate 14 01/10/19 08:29 Respiratory Effort Non-Labored 01/10/19 08:30 Respiratory Depth Normal 01/10/19 08:30 Respiratory Pattern Normal 01/10/19 08:30 Blood Pressure 120/52 L 01/10/19 08:29 Blood Pressure Mean 69 01/10/19 08:29 Blood Pressure Position Supine 01/09/19 23:29 Pulse Oximetry 95 01/10/19 08:29 Oxygen Delivery Method Nasal Cannula 01/10/19 06:44 Oxygen Flow Rate 3 01/10/19 06:44 Pain Level 8 01/10/19 05:50 Comment 01/10/19 06:44 Intake & Output 01/09/19 01/10/19 01/10/19 23:59 11:59 23:59 Intake Total 1050 / 1050 2560.000 / 2560.000 Output Total 125 / 125 Balance 1050 / 1050 2435.000 / 2435.000 Weight 61.6 kg 61.6 kg Intake: IV 1050 / 1050 2000.000 / 2000.000 Oral 560 / 560 Output: Urine 125 / 125 Other: Urine Color Dark [place] Urine Appearance Clear Urine Odor Normal Voiding Methods Bedpan Labs on day of discharge: Labs from last 24 hours 01/10/19 01/10/19 01/10/19 16:50 12:50 08:50 WBC RBC Hgb Hct MCV MCH MCHC RDW Plt Count MPV Immature Gran % Neutrophils % Lymphocytes % Monocytes % Eosinophils % Basophils % Absolute Neutrophils Absolute Lymphocytes Absolute Monocytes Absolute Eosinophils Absolute Basophils Differential Comment RBC Morphology Hypochromasia Poikilocytosis Anisocytosis PT INR APTT Sodium Potassium Chloride Carbon Dioxide Anion Gap BUN Creatinine Estimated GFR/1.73 m2 Glucose Calcium Magnesium Total Bilirubin AST ALT Alkaline Phosphatase Troponin I Cancelled Cancelled Cancelled Total Protein Albumin Lipase TSH Urine Color Urine Clarity Urine pH Ur Specific [place] Urine Protein Urine Ketones Urine Blood Urine Nitrite Urine Bilirubin Urine Urobilinogen Ur Leukocyte Esterase Urine RBC Urine WBC Ur Epithelial Cells Urine Crystals Urine Bacteria Urine Mucus Ur Culture Indicated? Urine Glucose 01/10/19 01/10/19 01/10/19 06:05 06:05 04:50 WBC 7.98 RBC 3.62 L Hgb 10.2 L Hct 33.2 L MCV 91.7 MCH 28.2 MCHC 30.7 L RDW 18.3 H Plt Count 205 MPV 10.5 Immature Gran % Neutrophils % Lymphocytes % Monocytes % Eosinophils % Basophils % Absolute Neutrophils Absolute Lymphocytes Absolute Monocytes Absolute Eosinophils Absolute Basophils Differential Comment RBC Morphology Hypochromasia Poikilocytosis Anisocytosis PT INR APTT Sodium 141 Potassium 3.1 L Chloride 103 Carbon Dioxide 35.4 H Anion Gap 2.6 L BUN 32 H Creatinine 1.08 H Estimated GFR/1.73 m2 48.81 Glucose 83 Calcium 8.7 Magnesium Total Bilirubin 0.6 AST 18 ALT < 6 L Alkaline Phosphatase 75 Troponin I Cancelled Total Protein 4.9 L Albumin 2.0 L Lipase TSH Urine Color Urine Clarity Urine pH Ur Specific [place] Urine Protein Urine Ketones Urine Blood Urine Nitrite Urine Bilirubin Urine Urobilinogen Ur Leukocyte Esterase Urine RBC Urine WBC Ur Epithelial Cells Urine Crystals Urine Bacteria Urine Mucus Ur Culture Indicated? Urine Glucose 01/10/19 01/10/19 01/09/19 03:45 00:50 23:40 WBC RBC Hgb Hct MCV MCH MCHC RDW Plt Count MPV Immature Gran % Neutrophils % Lymphocytes % Monocytes % Eosinophils % Basophils % Absolute Neutrophils Absolute Lymphocytes Absolute Monocytes Absolute Eosinophils Absolute Basophils Differential Comment RBC Morphology Hypochromasia Poikilocytosis Anisocytosis PT INR APTT Sodium Potassium Chloride Carbon Dioxide Anion Gap BUN Creatinine Estimated GFR/1.73 m2 Glucose Calcium Magnesium Total Bilirubin AST ALT Alkaline Phosphatase Troponin I 0.28 H* Cancelled 0.32 H* Total Protein Albumin Lipase TSH 0.45 Urine Color Urine Clarity Urine pH Ur Specific [place] Urine Protein Urine Ketones Urine Blood Urine Nitrite Urine Bilirubin Urine Urobilinogen Ur Leukocyte Esterase Urine RBC Urine WBC Ur Epithelial Cells Urine Crystals Urine Bacteria Urine Mucus Ur Culture Indicated? Urine Glucose 01/09/19 01/09/19 01/09/19 20:50 18:40 15:46 WBC RBC Hgb Hct MCV MCH MCHC RDW Plt Count MPV Immature Gran % Neutrophils % Lymphocytes % Monocytes % Eosinophils % Basophils % Absolute Neutrophils Absolute Lymphocytes Absolute Monocytes Absolute Eosinophils Absolute Basophils Differential Comment RBC Morphology Hypochromasia Poikilocytosis Anisocytosis PT 12.9 H INR 1.3 H APTT 26.4 Sodium Potassium Chloride Carbon Dioxide Anion Gap BUN Creatinine Estimated GFR/1.73 m2 Glucose Calcium Magnesium Total Bilirubin AST ALT Alkaline Phosphatase Troponin I Cancelled 0.37 H* Total Protein Albumin Lipase TSH Urine Color Urine Clarity Urine pH Ur Specific [place] Urine Protein Urine Ketones Urine Blood Urine Nitrite Urine Bilirubin Urine Urobilinogen Ur Leukocyte Esterase Urine RBC Urine WBC Ur Epithelial Cells Urine Crystals Urine Bacteria Urine Mucus Ur Culture Indicated? Urine Glucose 01/09/19 01/09/19 01/09/19 15:46 15:46 15:46 WBC 9.99 RBC 4.11 Hgb 11.6 L Hct 37.3 MCV 90.8 MCH 28.2 MCHC 31.1 L RDW 18.5 H Plt Count 274 MPV 10.2 Immature Gran % 0.3 Neutrophils % 78.2 Lymphocytes % 13.3 Monocytes % 8.1 Eosinophils % 0.0 Basophils % 0.1 Absolute Neutrophils 7.81 H Absolute Lymphocytes 1.33 Absolute Monocytes 0.81 H Absolute Eosinophils 0.00 Absolute Basophils 0.01 Differential Comment Rbc morph reviewed RBC Morphology See below Hypochromasia 2+ Poikilocytosis 1+ Anisocytosis 2+ PT INR APTT Sodium 143 Potassium 3.1 L Chloride 100 Carbon Dioxide 37.6 H Anion Gap 5.4 BUN 34 H Creatinine 1.29 H Estimated GFR/1.73 m2 39.76 Glucose 114 H Calcium 9.8 Magnesium 1.7 L Total Bilirubin 0.6 AST 24 ALT 8 L Alkaline Phosphatase 88 Troponin I 0.30 H* Total Protein 5.8 L Albumin 2.5 L Lipase 110 TSH Urine Color Urine Clarity Urine pH Ur Specific [place] Urine Protein Urine Ketones Urine Blood Urine Nitrite Urine Bilirubin Urine Urobilinogen Ur Leukocyte Esterase Urine RBC Urine WBC Ur Epithelial Cells Urine Crystals Urine Bacteria Urine Mucus Ur Culture Indicated? Urine Glucose 01/09/19 15:25 WBC RBC Hgb Hct MCV MCH MCHC RDW Plt Count MPV Immature Gran % Neutrophils % Lymphocytes % Monocytes % Eosinophils % Basophils % Absolute Neutrophils Absolute Lymphocytes Absolute Monocytes Absolute Eosinophils Absolute Basophils Differential Comment RBC Morphology Hypochromasia Poikilocytosis Anisocytosis PT INR APTT Sodium Potassium Chloride Carbon Dioxide Anion Gap BUN Creatinine Estimated GFR/1.73 m2 Glucose Calcium Magnesium Total Bilirubin AST ALT Alkaline Phosphatase Troponin I Total Protein Albumin Lipase TSH Urine Color Yellow Urine Clarity Sl cloudy Urine pH 5.5 Ur Specific [place] >= 1.030 H Urine Protein 30 H Urine Ketones Negative Urine Blood Negative Urine Nitrite Negative Urine Bilirubin Small H Urine Urobilinogen 1.0 H Ur Leukocyte Esterase Trace H Urine RBC Not Applicable Urine WBC Not Applicable Ur Epithelial Cells Urine Crystals Not Applicable Urine Bacteria Not Applicable Urine Mucus Not Applicable Ur Culture Indicated? No/sq. 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), ankle and foot (Chronic) Venous stasis of lower extremity (Chronic) H/O: GI bleed (Chronic) H/O: CVA (cerebrovascular accident) (Chronic) Congenital deformities of feet (Chronic) CHF (congestive heart failure) (Chronic) History of left below knee amputation (Chronic) Presence of IVC filter (Chronic) Chronic congestive heart failure Essential hypertension 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
--- NOTE | 2019-01-10 13:10 | W.PM.PROGNOT ---
Date of Service Date of service: 01/10/19 Time of Service: 13:11 Assessment and Plan (1) Elevated troponin: Current visit: Yes Status: Acute No symptoms that are convincingly anginal. No dysrhythmias. Troponin has plateaued and dropped. Case discussed with cardiology, Dr. Benavides at [facility] and he recommends conservative treatment i.e. no coronary angiography at this time. I will make arrangements to have pharmacological MPI stress test performed early next week. Monitor rhythm, monitor for anginal type chest pains or other symptoms that might be interpreted as an anginal equivalent. Continue current doses of carvedilol, aspirin, lisinopril and atorvastatin. (2) Obstipation: Current visit: Yes Status: Acute No bowel movement since arrival on the floor. Continue scheduled MiraLAX and monitor for lack of response. (3) UTI (urinary tract infection): Current visit: Yes Status: Acute Unclear if she has a UTI. Has had some altered mental status that might be drug-induced versus UTI related. Urine culture growing mixed organisms which might reflect contamination. Nevertheless I will continue on current antibiotic coverage for a total treatment duration (outpatient plus inpatient of 5 days then stop. (4) DVT prophylaxis: Current visit: No Status: Acute With her history of GI bleed she is very reluctant to be on anticoagulants. Continue with sequential compressing dressings and aspirin. (5) Metabolic encephalopathy: Current visit: Yes Status: Acute Possibly related to UTI but I think more likely related to her chronic pain medications. Her outpatient hydrocodone does have been reduced to 5 mg oxycodone/acetaminophen 3 times daily and tramadol 4 times daily. I am reducing the dose of her hydrocodone somewhat here. She still has significant shoulder pain and I am trying to strike a balance with pain management without oversedation. I am also decreasing her gabapentin dose. Discontinue IV morphine. (6) H/O: GI bleed: Current visit: Yes Status: Chronic Has not had any evidence of ongoing GI bleed. Follow for same. Continue PPI. 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 Opiates and tramadol and gabapentin I think are causing encephalopathy. Try to strike appropriate balance for managing pain but I do not think we will get this completely controlled. We need to settle whether or not she has coronary artery disease before proceeding with any surgical intervention for her shoulder. Qualifiers: Osteoarthritis type: primary Qualified Code(s): M19.011 - Primary osteoarthritis, right shoulder Subjective Patient reports: pain is less Interval history since last seen: No chest pains but still has pain in the right shoulder and right axillary area. Initially when asked if she is having pain she states everywhere and then becomes a little bit more specific. She has had no dysrhythmia on telemetry. She has not had another bowel movement since the emergency room but denies abdominal pain at this time. During the night was complaining of some right sided discomfort which has resolved. She is sedated which I suspect is from medication. She acknowledges she feels a little bit muddy headed. Multiple conversations with the patient and family through the day regarding possible transfer to [facility] for coronary angiography. Ultimately a bed was found and I spoke directly with Dr. Benavides, reviewed her labs and clinical course and mutual decision made to cancel the transfer as there is no objective evidence of an acute coronary syndrome at this time. She has a minor elevation in troponin in the indeterminate range and conservative management recommended i.e. medications and stress test. Denies cough or shortness of breath. Denies any dysuria at this time. Exam Narrative Exam Narrative: Little lethargic but arousable. Her responses are little slow but appropriate. Chronic mild right facial droop from her past stroke. Extraocular movements are normal. Neck veins are difficult to see because of skin folds. Her lungs are clear in all horner with good aeration throughout with no crackles or wheeze at the bases. Heart rhythm regular with an occasional extra beat, no murmur S3 or S4. Abdomen obese nontender bowel sounds are normal. She has sequential compression dressings on both legs, pulses are palpable in the feet which are warm and there is no edema. She has the ability to raise her right arm but it hurts to do so, passively I can fully forward flex with minimal discomfort. There is no ecchymosis or bruising. She has no chest wall tenderness. She does have some tenderness over the outer right shoulder. Objective Objective Clinical Data: Abnormal lab results 01/09/19 01/09/19 01/09/19 Range/Units 15:25 15:46 15:46 RBC (4.00-5.20) m/cumm Hgb (12.0-15.5) g/dL Hct (36.0-46.0) % MCHC (32.0-36.0) g/dL RDW (11.7-14.6) % Absolute Neutrophils (1.2-6.7) k/cumm Absolute Monocytes (0.11-0.7) k/cumm PT (9.3-11.0) sec INR (0.9-1.1) Potassium 3.1 L (3.5-5.1) mmol/L Carbon Dioxide 37.6 H (21.0-32.0) mmol/L Anion Gap (3-11) mmol/L BUN 34 H (7-18) mg/dL Creatinine 1.29 H (0.55-1.02) mg/dL Glucose 114 H (70-100) mg/dL Magnesium 1.7 L (1.8-2.4) mg/dL ALT 8 L (12-78) U/L Troponin I 0.30 H* (0.00-0.06) ng/mL Total Protein 5.8 L (6.4-8.2) g/dL Albumin 2.5 L (3.4-5.0) g/dL Ur Specific [place] >= 1.030 H (1.005-1.025) Urine Protein 30 H (Negative) mg/dL Urine Bilirubin Small H (Negative) Urine Urobilinogen 1.0 H (Up TO 0.2) EU/dL Ur Leukocyte Esterase Trace H (Negative) 01/09/19 01/09/19 01/09/19 Range/Units 15:46 15:46 18:40 RBC (4.00-5.20) m/cumm Hgb 11.6 L (12.0-15.5) g/dL Hct (36.0-46.0) % MCHC 31.1 L (32.0-36.0) g/dL RDW 18.5 H (11.7-14.6) % Absolute Neutrophils 7.81 H (1.2-6.7) k/cumm Absolute Monocytes 0.81 H (0.11-0.7) k/cumm PT 12.9 H (9.3-11.0) sec INR 1.3 H (0.9-1.1) Potassium (3.5-5.1) mmol/L Carbon Dioxide (21.0-32.0) mmol/L Anion Gap (3-11) mmol/L BUN (7-18) mg/dL Creatinine (0.55-1.02) mg/dL Glucose (70-100) mg/dL Magnesium (1.8-2.4) mg/dL ALT (12-78) U/L Troponin I 0.37 H* (0.00-0.06) ng/mL Total Protein (6.4-8.2) g/dL Albumin (3.4-5.0) g/dL Ur Specific [place] (1.005-1.025) Urine Protein (Negative) mg/dL Urine Bilirubin (Negative) Urine Urobilinogen (Up TO 0.2) EU/dL Ur Leukocyte Esterase (Negative) 01/09/19 01/10/19 01/10/19 Range/Units 23:40 03:45 06:05 RBC (4.00-5.20) m/cumm Hgb (12.0-15.5) g/dL Hct (36.0-46.0) % MCHC (32.0-36.0) g/dL RDW (11.7-14.6) % Absolute Neutrophils (1.2-6.7) k/cumm Absolute Monocytes (0.11-0.7) k/cumm PT (9.3-11.0) sec INR (0.9-1.1) Potassium 3.1 L (3.5-5.1) mmol/L Carbon Dioxide 35.4 H (21.0-32.0) mmol/L Anion Gap 2.6 L (3-11) mmol/L BUN 32 H (7-18) mg/dL Creatinine 1.08 H (0.55-1.02) mg/dL Glucose (70-100) mg/dL Magnesium (1.8-2.4) mg/dL ALT < 6 L (12-78) U/L Troponin I 0.32 H* 0.28 H* (0.00-0.06) ng/mL Total Protein 4.9 L (6.4-8.2) g/dL Albumin 2.0 L (3.4-5.0) g/dL Ur Specific [place] (1.005-1.025) Urine Protein (Negative) mg/dL Urine Bilirubin (Negative) Urine Urobilinogen (Up TO 0.2) EU/dL Ur Leukocyte Esterase (Negative) 01/10/19 Range/Units 06:05 RBC 3.62 L (4.00-5.20) m/cumm Hgb 10.2 L (12.0-15.5) g/dL Hct 33.2 L (36.0-46.0) % MCHC 30.7 L (32.0-36.0) g/dL RDW 18.3 H (11.7-14.6) % Absolute Neutrophils (1.2-6.7) k/cumm Absolute Monocytes (0.11-0.7) k/cumm PT (9.3-11.0) sec INR (0.9-1.1) Potassium (3.5-5.1) mmol/L Carbon Dioxide (21.0-32.0) mmol/L Anion Gap (3-11) mmol/L BUN (7-18) mg/dL Creatinine (0.55-1.02) mg/dL Glucose (70-100) mg/dL Magnesium (1.8-2.4) mg/dL ALT (12-78) U/L Troponin I (0.00-0.06) ng/mL Total Protein (6.4-8.2) g/dL Albumin (3.4-5.0) g/dL Ur Specific [place] (1.005-1.025) Urine Protein (Negative) mg/dL Urine Bilirubin (Negative) Urine Urobilinogen (Up TO 0.2) EU/dL Ur Leukocyte Esterase (Negative) Vital Signs Temperature 36.1 C L 01/10/19 06:44 Temperature Source Tympanic 01/10/19 06:44 Pulse 59 L 01/10/19 08:29 Pulse Rhythm Irregular 01/10/19 08:30 Pulse 78 01/10/19 08:29 Respiratory Rate 14 01/10/19 08:29 Respiratory Effort Non-Labored 01/10/19 08:30 Respiratory Depth Normal 01/10/19 08:30 Respiratory Pattern Normal 01/10/19 08:30 Blood Pressure 120/52 L 01/10/19 08:29 Blood Pressure Mean 69 01/10/19 08:29 Blood Pressure Position Supine 01/09/19 23:29 Pulse Oximetry 95 03/09/19 08:29 Oxygen Delivery Method Nasal Cannula 01/10/19 06:44 Oxygen Flow Rate 3 01/10/19 06:44 Pain Level 8 01/10/19 05:50 Comment 01/10/19 06:44 Intake & Output 01/09/19 01/10/19 01/10/19 23:59 11:59 23:59 Intake Total 1050 / 1050 2560.000 / 2560.000 Output Total 125 / 125 Balance 1050 / 1050 2435.000 / 2435.000 Weight 61.6 kg 61.6 kg Intake: IV 1050 / 1050 2000.000 / 2000.000 Oral 560 / 560 Output: Urine 125 / 125 Other: Urine Color Dark Hailee Urine Appearance Clear Urine Odor Normal Voiding Methods Bedpan Laboratory Results WBC 7.98 k/cumm (4.4-10.8) 01/10/19 06:05 RBC 3.62 m/cumm (4.00-5.20) L 01/10/19 06:05 Hgb 10.2 g/dL (12.0-15.5) L 01/10/19 06:05 Hct 33.2 % (36.0-46.0) L 01/10/19 06:05 MCV 91.7 fL (80-95) 01/10/19 06:05 MCH 28.2 pg (27.0-33.0) 01/10/19 06:05 MCHC 30.7 g/dL (32.0-36.0) L 01/10/19 06:05 RDW 18.3 % (11.7-14.6) H 01/10/19 06:05 Plt Count 205 x1000/uL (130-400) 01/10/19 06:05 MPV 10.5 fL (8.0-11.0) 01/10/19 06:05 Immature Gran % 0.3 01/09/19 15:46 Neutrophils % 78.2 01/09/19 15:46 Lymphocytes % 13.3 01/09/19 15:46 Monocytes % 8.1 01/09/19 15:46 Eosinophils % 0.0 01/09/19 15:46 Basophils % 0.1 01/09/19 15:46 Absolute Neutrophils 7.81 k/cumm (1.2-6.7) H 01/09/19 15:46 Absolute Lymphocytes 1.33 k/cumm (1.2-3.4) 01/09/19 15:46 Absolute Monocytes 0.81 k/cumm (0.11-0.7) H 01/09/19 15:46 Absolute Eosinophils 0.00 k/cumm (0.0-0.7) 01/09/19 15:46 Absolute Basophils 0.01 k/cumm (0.0-0.2) 01/09/19 15:46 Differential Comment Rbc morph reviewed 01/09/19 15:46 RBC Morphology See below 01/09/19 15:46 Hypochromasia 2+ 01/09/19 15:46 Poikilocytosis 1+ 01/09/19 15:46 Anisocytosis 2+ 01/09/19 15:46 PT 12.9 sec (9.3-11.0) H 01/09/19 15:46 INR 1.3 (0.9-1.1) H 01/09/19 15:46 APTT 26.4 sec (21.0-31.4) 01/09/19 15:46 Sodium 141 mmol/L (136-145) 01/10/19 06:05 Potassium 3.1 mmol/L (3.5-5.1) L 01/10/19 06:05 Chloride 103 mmol/L (98-107) 01/10/19 06:05 Carbon Dioxide 35.4 mmol/L (21.0-32.0) H 01/10/19 06:05 Anion Gap 2.6 mmol/L (3-11) L 01/10/19 06:05 BUN 32 mg/dL (7-18) H 01/10/19 06:05 Creatinine 1.08 mg/dL (0.55-1.02) H 01/10/19 06:05 Estimated GFR/1.73 m2 48.81 (mL/min/1.73m2) 01/10/19 06:05 Glucose 83 mg/dL (70-100) 01/10/19 06:05 Calcium 8.7 mg/dL (8.5-10.1) 01/10/19 06:05 Magnesium 1.7 mg/dL (1.8-2.4) L 01/09/19 15:46 Total Bilirubin 0.6 mg/dL (0.2-1.0) 01/10/19 06:05 AST 18 U/L (15-37) 01/10/19 06:05 ALT < 6 U/L (12-78) L 01/10/19 06:05 Alkaline Phosphatase 75 U/L (46-116) 01/10/19 06:05 Troponin I 0.28 ng/mL (0.00-0.06) H* 01/10/19 03:45 Total Protein 4.9 g/dL (6.4-8.2) L 01/10/19 06:05 Albumin 2.0 g/dL (3.4-5.0) L 01/10/19 06:05 Lipase 110 U/L (73-393) 01/09/19 15:46 TSH 0.45 uIU/mL (0.358-3.74) 01/09/19 23:40 Urine Color Yellow (Yellow) 01/09/19 15:25 Urine Clarity Sl cloudy 01/09/19 15:25 Urine pH 5.5 (5-8) 01/09/19 15:25 Ur Specific [place] >= 1.030 (1.005-1.025) H 01/09/19 15:25 Urine Protein 30 mg/dL (Negative) H 01/09/19 15:25 Urine Ketones Negative mg/dL (Negative) 01/09/19 15:25 Urine Blood Negative (Negative) 01/09/19 15:25 Urine Nitrite Negative (Negative) 01/09/19 15:25 Urine Bilirubin Small (Negative) H 01/09/19 15:25 Urine Urobilinogen 1.0 EU/dL (Up TO 0.2) H 01/09/19 15:25 Ur Leukocyte Esterase Trace (Negative) H 01/09/19 15:25 Urine RBC Not Applicable 01/09/19 15:25 Urine WBC Not Applicable 01/09/19 15:25 Ur Epithelial Cells HPF (Negative) 01/09/19 15:25 Urine Crystals Not Applicable 01/09/19 15:25 Urine Bacteria Not Applicable 01/09/19 15:25 Urine Mucus Not Applicable 01/09/19 15:25 Ur Culture Indicated? No/sq. contamination 01/09/19 15:25 Urine Glucose Negative mg/dL (Negative) 01/09/19 15:25
[2019-01-10] MEDS: Milk of Magnesia 30 ML CUP PO (20:41)
[2019-01-10] MEDS: Normal Saline Flush 10 ML SYR IVP (22:36)
[2019-01-11] VITALS (9 sets, daily range): BP systolic 88–121; BP diastolic 50–72; PULSE 57–67; RESP 16–20; TEMP 36–36.9; O2SAT 92–97
[2019-01-11] MEDS: Ondansetron 4 MG TAB PO ×3 (05:09→22:18)
[2019-01-11] MEDS: Polyethylene Glycol 3350 17 GM PACKET PO ×2 (08:24→19:32)
[2019-01-11] MEDS: Cyanocobalamin 500 MCG TAB 2000 MCG PO (08:25)
[2019-01-11] MEDS: Aspirin 81 MG CHEW PO (08:25)
[2019-01-11] MEDS: Pantoprazole 40 MG TABCR PO ×2 (08:25→19:32)
[2019-01-11] MEDS: Atorvastatin 40 MG TAB PO (08:25)
[2019-01-11] MEDS: Gabapentin 300 MG CAP PO ×2 (08:26→19:32)
[2019-01-11] MEDS: Lactobacillus Acidophilus CAP 1 CAP PO ×2 (08:26→19:32)
[2019-01-11] MEDS: traMADol 50 MG TAB PO ×2 (08:39→15:58)
--- NOTE | 2019-01-11 10:40 | PGE_ITS ---
Date of Service Date of service: 01/11/19 Time of Service: 10:35 Assessment and Plan (1) Elevated troponin: Current visit: Yes Status: Acute Troponins plateaued and have dropped and have not been rechecked. All indeterminant. Has not had any recurrent chest pain. Will make arrangements for stress test, preferably before hospital discharge. Bradycardia with carvedilol, a recurrent problem with beta blockers and carvedilol has been discontinued. Continue aspirin and statin. (2) Obstipation: Current visit: Yes Status: Acute No no bowel movement since the emergency room. Continue polyethylene glycol, may require suppository. We will see what happens today. (3) UTI (urinary tract infection): Current visit: Yes Status: Acute No symptoms. Tomorrow will be day 5 of antibiotics (started January 08 as an outpatient). Discontinue ceftriaxone after tomorrow's dose. (4) DVT prophylaxis: Current visit: No Status: Acute Has declined teds and sequential compression stockings. Discussion on risk of DVT and she is agreeable to prophylactic dose of Lovenox. (5) Metabolic encephalopathy: Current visit: Yes Status: Acute Definitely more alert this morning. No further medication adjustments at this point with regard to pain meds. Follow. (6) H/O: GI bleed: Current visit: Yes Status: Chronic Has not had any evidence of GI bleed. Seen on prophylactic dose Lovenox, watch for any evidence of GI bleed. Continue PPI. 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 Try topical lidocaine in addition to her current pain management. Qualifiers: Osteoarthritis type: primary Qualified Code(s): M19.011 - Primary osteoarthritis, right shoulder (8) Bradycardia: Current visit: Yes Status: Acute Undoubtedly due to beta-ramandeep which has been discontinued. No other dysrhythmias on telemetry. I think we can stop telemetry and follow her clinically. (9) Hypokalemia: Current visit: Yes Status: Acute Cause unclear as she is no longer on a diuretic. Replete orally and follow potassium level. (10) Essential hypertension: Current visit: Yes Status: Chronic Blood pressures currently low, iatrogenic with over treatment. As an outpatient blood pressures had been creeping up and lisinopril seem to be adequate in managing blood pressure. Will hold lisinopril today and likely tomorrow based on blood pressure response. Subjective Interval history since last seen: No chest pain complaints nor abdominal complaints. Has not had a bowel movement yet since arrival on the floor. Complains of pain in the right shoulder and posterior right neck which is chronic. Mentally more alert. Had a little nausea last night but has not persisted. Denies dysuria, shortness of breath or cough. Exam Narrative Exam Narrative: Lying in bed she is much more alert than she was yesterday although responses are still a little sluggish. Does not appear in any acute distress provided she does not try to move her right arm. And afebrile with blood pressures last night and this morning in the 80s, 120s later in the morning. Telemetry has shown sinus bradycardia as low as 30s with no symptoms. Occasional PACs. Neck veins are not distended. Lungs are clear in all horner. No heart murmur S3 or S4 heard, she has occasional ectopic beat. Abdomen with normal bowel sounds, soft and nontender. Right leg warm 1+ pulses no edema. Left residual limb with skin intact, no redness. Objective Objective Clinical Data: Vital Signs Temperature 36.8 C 01/11/19 07:40 Temperature Source Tympanic 01/11/19 07:40 Pulse 66 01/11/19 08:01 Pulse Rhythm Regular 01/11/19 09:50 Pulse 62 01/10/19 13:00 Respiratory Rate 20 01/11/19 07:40 Respiratory Effort Non-Labored 01/11/19 09:50 Respiratory Depth Normal 01/11/19 09:50 Respiratory Pattern Normal 01/11/19 09:50 Blood Pressure 121/72 01/11/19 07:40 Blood Pressure Mean 69 01/10/19 08:29 Blood Pressure Position Supine 01/09/19 23:29 Pulse Oximetry 97 01/11/19 07:40 Oxygen Delivery Method Nasal Cannula 01/11/19 07:40 Oxygen Flow Rate 1 01/11/19 07:40 Pain Level 5 01/11/19 08:39 Comment 01/10/19 06:44 Intake & Output 01/10/19 01/10/19 01/11/19 11:59 23:59 12:59 Intake Total 2560.000 / 3610.000 1050 / 3610.000 490 / 490 Output Total 125 / 250 125 / 250 300 / 300 Balance 2435.000 / 3360.000 925 / 3360.000 190 / 190 Weight 61.6 kg 62.4 kg Intake: IV 2000.000 / 3050.000 1050 / 3050.000 10 / 10 Oral 560 / 560 480 / 480 Output: Urine 125 / 250 125 / 250 300 / 300 Other: Urine Color Dark Hailee Dark Hailee Pale Yellow Urine Appearance Clear Clear Urine Odor Normal Normal None Voiding Methods Bedpan Bedpan Laboratory Results WBC 7.98 k/cumm (4.4-10.8) 01/10/19 06:05 RBC 3.62 m/cumm (4.00-5.20) L 01/10/19 06:05 Hgb 10.2 g/dL (12.0-15.5) L 01/10/19 06:05 Hct 33.2 % (36.0-46.0) L 01/10/19 06:05 MCV 91.7 fL (80-95) 01/10/19 06:05 MCH 28.2 pg (27.0-33.0) 01/10/19 06:05 MCHC 30.7 g/dL (32.0-36.0) L 01/10/19 06:05 RDW 18.3 % (11.7-14.6) H 01/10/19 06:05 Plt Count 205 x1000/uL (130-400) 01/10/19 06:05 MPV 10.5 fL (8.0-11.0) 01/10/19 06:05 Immature Gran % 0.3 01/09/19 15:46 Neutrophils % 78.2 01/09/19 15:46 Lymphocytes % 13.3 01/09/19 15:46 Monocytes % 8.1 01/09/19 15:46 Eosinophils % 0.0 01/09/19 15:46 Basophils % 0.1 01/09/19 15:46 Absolute Neutrophils 7.81 k/cumm (1.2-6.7) H 01/09/19 15:46 Absolute Lymphocytes 1.33 k/cumm (1.2-3.4) 01/09/19 15:46 Absolute Monocytes 0.81 k/cumm (0.11-0.7) H 01/09/19 15:46 Absolute Eosinophils 0.00 k/cumm (0.0-0.7) 01/09/19 15:46 Absolute Basophils 0.01 k/cumm (0.0-0.2) 01/09/19 15:46 Differential Comment Rbc morph reviewed 01/09/19 15:46 RBC Morphology See below 01/09/19 15:46 Hypochromasia 2+ 01/09/19 15:46 Poikilocytosis 1+ 01/09/19 15:46 Anisocytosis 2+ 01/09/19 15:46 PT 12.9 sec (9.3-11.0) H 01/09/19 15:46 INR 1.3 (0.9-1.1) H 01/09/19 15:46 APTT 26.4 sec (21.0-31.4) 01/09/19 15:46 Sodium 141 mmol/L (136-145) 01/10/19 06:05 Potassium 3.1 mmol/L (3.5-5.1) L 01/10/19 06:05 Chloride 103 mmol/L (98-107) 01/10/19 06:05 Carbon Dioxide 35.4 mmol/L (21.0-32.0) H 01/10/19 06:05 Anion Gap 2.6 mmol/L (3-11) L 01/10/19 06:05 BUN 32 mg/dL (7-18) H 01/10/19 06:05 Creatinine 1.08 mg/dL (0.55-1.02) H 01/10/19 06:05 Estimated GFR/1.73 m2 48.81 (mL/min/1.73m2) 01/10/19 06:05 Glucose 83 mg/dL (70-100) 01/10/19 06:05 Calcium 8.7 mg/dL (8.5-10.1) 01/10/19 06:05 Magnesium 1.7 mg/dL (1.8-2.4) L 01/09/19 15:46 Total Bilirubin 0.6 mg/dL (0.2-1.0) 01/10/19 06:05 AST 18 U/L (15-37) 01/10/19 06:05 ALT < 6 U/L (12-78) L 01/10/19 06:05 Alkaline Phosphatase 75 U/L (46-116) 01/10/19 06:05 Troponin I 0.28 ng/mL (0.00-0.06) H* 01/10/19 03:45 Total Protein 4.9 g/dL (6.4-8.2) L 01/10/19 06:05 Albumin 2.0 g/dL (3.4-5.0) L 01/10/19 06:05 Lipase 110 U/L (73-393) 01/09/19 15:46 TSH 0.45 uIU/mL (0.358-3.74) 01/09/19 23:40 Urine Color Yellow (Yellow) 01/09/19 15:25 Urine Clarity Sl cloudy 01/09/19 15:25 Urine pH 5.5 (5-8) 01/09/19 15:25 Ur Specific [place] >= 1.030 (1.005-1.025) H 01/09/19 15:25 Urine Protein 30 mg/dL (Negative) H 01/09/19 15:25 Urine Ketones Negative mg/dL (Negative) 01/09/19 15:25 Urine Blood Negative (Negative) 01/09/19 15:25 Urine Nitrite Negative (Negative) 01/09/19 15:25 Urine Bilirubin Small (Negative) H 01/09/19 15:25 Urine Urobilinogen 1.0 EU/dL (Up TO 0.2) H 01/09/19 15:25 Ur Leukocyte Esterase Trace (Negative) H 01/09/19 15:25 Urine RBC Not Applicable 01/09/19 15:25 Urine WBC Not Applicable 01/09/19 15:25 Ur Epithelial Cells HPF (Negative) 01/09/19 15:25 Urine Crystals Not Applicable 01/09/19 15:25 Urine Bacteria Not Applicable 01/09/19 15:25 Urine Mucus Not Applicable 01/09/19 15:25 Ur Culture Indicated? No/sq. contamination 01/09/19 15:25 Urine Glucose Negative mg/dL (Negative) 01/09/19 15:25
--- NOTE | 2019-01-11 11:07 | PDOC.CMPRO ---
Care Management Progress Note S/O: Fay continues to be closely monitored; per MD she will require a MPI Stress Test; with hopes this will be possible tomorrow, 01/12/19. Fay refused TEDS and SCDs. She remains on TELE and will transition to an inpatient today. CM will continue to follow. CM met with Fay, her , Kaushal and her son, Cali. Both Fay and her Kaushal appear mostly W/C bound. Fay reports recurrent falls at home. PT consult ordered today. Discussed community based supports: -Family will consider MOW. -Referral to Rehana ([email or web address]) for consideration of continued increased High/Highest Waiver and increased [employer] services to support Fay at home, as well as her and Cali's ongoing mental health as they are both exhausted with each other. 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 -Emergency Fuel assistance through [employer] or [employer]. Cali reports using allotted fuel assistance and struggling with fuel costs. -Fay shared concerns around her Promis prosthetic and struggling to place it as well as discomfort with it on. A: 78 year old female admitted to [facility] 01/09/19 for NSTEMI, UTI P: Fay will have MPI Stress Test; hopefully tomorrow to inform discharge considerations. Anticipate she will return home with outpatient follow up and increased home support considerations including possible VNA/PT. YENI faxed this note: Attn: Rehana Hearn CM@ [email or web address]. She will transport via private vehicle with her son, Cali.
--- NOTE | 2019-01-11 11:12 | PT.INIE ---
Date of service: 01/11/19 Time of Service: 10:30 PT Notes Inpatient Physical Therapy Evaluation Date: 01/11/19 Referring Doctor: Randal Sainz MD PT Orders: PT CONSULT: Maintain/improve transfer ability Precautions: L BKA amputee, standard Patient Profile/Admitting Diagnosis: 78 y o female, admitted for conservative management of Non-ST elevation NM (NSTEMI), UTI (urinary tract infection), and resulting encephelopathy after presenting to ER on 01/09/19 with c/o unresolving abdominal pain. Also struggling with acute on chronic L shoulder pain, after fall 1-2 days ago during transfer, and is a left BKA. Referred for therapy to maintain her current transfer abilities. 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), ankle and foot (Chronic) Venous stasis of lower extremity (Chronic) H/O: GI bleed (Chronic) H/O: CVA (cerebrovascular accident) (Chronic) Congenital deformities of feet (Chronic) CHF (congestive heart failure) (Chronic) History of left below knee amputation (Chronic) Presence of IVC filter (Chronic) Chronic congestive heart failure Essential hypertension 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 Mixed hyperlipidemia Morbid obesity Personal history of pulmonary embolism Polymyalgia rheumatica Restless legs Cholecystectomy Hernia Repair, Incisional Repair of umbilical hernia Social History/Home Situation: Fya resides with her Kaushal, and son, Cali in their home in [place]; Cali assists with ADLs including transportation. Fay is mostly independent with ADL's, requiring supervision with transfers. They have 2 additional sons nearby and a daughter who lives in [place] as well. Current Functional Limitations: CG x 2 with transfers, and min A x 1 for bed mobiltiy. Equipment Owned/DME: Has a cane, walker, ramp, raised toilet seat, hand shower, handrails, w/c at home. Subjective: C/o of R shoulder pain, reporting fall on either Saturday or Saturday while transferring from toilet to . Reports pain of 8/10, lateral acromial region. Did have pre-existing discomfort and arthritis, but not at this intensity. She does not generally use her prosthetic leg, as she finds it to difficult to don and doff. She uses a pediatric walker at home, to assist with stand pivot transfers. She has a normal bed, and using an overhang bar to assist with bed mobility. Objective: General Observation: Lying reclined in bed, IV R cubital fossa. L BKA. Deformed R ankle, remarkably pronated. Remarkable crepitus with passive movement of R shoulder. Mental Status: A&Ox3 Pain: 8/10, R shoulder Vital Signs: BP 95/59, HR 61, O2 90% on room air. ROM: Right Upper Extremity: Limited actively to only 30-40 degrees of scapular movement and flexion. Passive achieves 90 degrees scapular movement, and flexion, ER 30 degrees and IR 45 degrees all painful. Pain with elbow flexion with drawing through tricep tissue, otherwise WNL. Left Upper Extremity: WFL Right Lower Extremity: WFL Left Lower Extremity: WFL, with existing joints. Strength: Right Upper Extremity: Painful upon all attempt of resistance, so defer. Demonstrating at least 3/5 through wrist and elbow. 2/5 at least assumed at R shoulder, pain inhibitied. Left Upper Extremity: Grossly 4-/5 Right Lower Extremity: Grossly 4/5 Left Lower Extremity: Grossly 4/5 at hip Sensation: WNL Bed Mobility/Transfers: Min A x 1 for recline to EOB, CG x1, Min A x1 sit to stand, stand to sit CG x 2, stand pivot transfer CG x 1 to commode, Min A x1 with walker. Gait: Unable Balance: Static Sitting: Fair Dynamic Sitting: Poor Static Standing: Poor Dynamic Standing:Poor Special Tests: Mobility Limitations Standardized Measure [facility] AM-PAC 6 clicks Basic Mobility Inpatient Short Form: 72% disability Informed Consent/Education: Patient instructed in purpose of PT consult and plan of care. Assessment: Patient is a 78 year old female referred to physical therapy services for maintainance and improvement of transfers, while being treated for Non-ST elevation NM (NSTEMI), UTI (urinary tract infection), and resulting encephelopathy, on top of multiple chronic comorbidities, most remarkably R shoulder OA and L BKA contributing to trasnfer difficulties. She is suffering acute on chronic R shoulder pain following recent fall, making her already difficult transfers, that much more challenging, as she is dependent on her UE's with use of walker for transfers. Impairment level findings: 1. Limited R shoulder mobility, strength, and pain 2. Poor balance/stability 3. Gross weakness Impairments are contributing to the following functional limitations: 1. AMPA score of 72% disabiltiy 2. Requires assist with transfers, beyond her premorbid level of function Patient is assessed as a Low 42566 x Moderate 20432 High 41943 complexity based on the following: History: See comorbidities Examination: See above impairments and functional limitations Presentation: Evolving Decision Making: Cristina [facility] 72% disability Goals: Goals X1 week 1. Supine-Sit close supervision 2. Sit-Supine close supervision 3. Sit-Stand CGx1, with walker 4. Stand-Sit CG x1, with walker 5. Bed-Chair stand pivot transfer, with walker, CG x 1 6. Chair-Bed stand pivor transfer, with walker, CG x 1 7. Independent with home exercise program 8. Balance Fair static and dynamic, with standing and sitting activities Plan of Care/Treatment Plan: 1-2x/day, 7 days/week x 1 week. Plan of care has been reviewed with the VEHICLE DISMANTLER providing the service under Physical Therapy direction. Initiate Physical Therapy intervention for strengthening, bed mobility, transfers, balance training, use of assistive device. DISCHARGE RECOMMENDATIONS: Home with family support TREATMENT CODE/TIME: 21840, 30 minutes
[2019-01-11] MEDS: Potassium Chloride 20 MEQ TABCR PO ×2 (11:42→19:32)
[2019-01-11] MEDS: Enoxaparin 30 MG/0.3 ML SYR SC (11:42)
[2019-01-11] MEDS: Lidocaine 5% Patch 2 PATCH TP (12:33)
--- NOTE | 2019-01-11 13:18 | CMPROGNOTE_ITS ---
Care Management Progress Note S/O: Fay continues to be closely monitored; per MD she will require a MPI Stress Test; with hopes this will be possible tomorrow, 01/12/19. Fay refused TEDS and SCDs. She remains on TELE and will transition to an inpatient today. CM will continue to follow. CM met with Fay, her , Kaushal and her son, Cali. Both Fay and her Kaushal appear mostly W/C bound. Fay reports recurrent falls at home. PT consult ordered today. Discussed community based supports: -Family will consider MOW. -Referral to Rehana ([email or web address]) for consideration of continued increased High/Highest Waiver and increased MOBILE NURSE services to support Fay at home, as well as her and Cali's ongoing mental health as they are both exhausted with each other. Cali volunteers for [employer], and could benefit from more time out of the house; per this travel writer's assessment. -Emergency Fuel assistance through [employer] or [employer]. Cali reports using allotted fuel assistance and struggling with fuel costs. -Fay shared concerns around her Promis prosthetic and struggling to place it as well as discomfort with it on. A: 78 year old female admitted to [facility] 01/09/19 for NSTEMI, UTI P: Fay will have MPI Stress Test; hopefully tomorrow to inform discharge considerations. Anticipate she will return home with outpatient follow up and increased home support considerations including possible VNA/PT. YENI faxed this note: Attn: Rehana Hearn CM@ [email or web address]. She will transport via private vehicle with her son, Cali.
[2019-01-11] MEDS: Normal Saline 1,000 ML 80 ML IV (13:30)
[2019-01-11] MEDS: rOPINIRole 0.5 MG TAB 1 MG PO (22:17)
[2019-01-12] MEDS: Normal Saline 1,000 ML 80 ML IV (02:24)
[2019-01-12 04:09] VITALS: BP 96/62; PULSE 67; RESP 18; TEMP 36.5; O2SAT 91
[2019-01-12] MEDS: Ondansetron 4 MG TAB PO ×3 (06:34→22:23)
[2019-01-12 07:17] LABS: HCT 34.1 % (36.0-46.0); HGB 10.1 g/dL (12.0-15.5); Mean Corp. HGB Concentration 29.6 g/dL (32.0-36.0); Mean Corpuscular Hemoglobin 27.5 pg (27.0-33.0); Mean Corpuscular Volume 92.9 fL (80-95); Mean Platelet Volume 10.9 fL (8.0-11.0); Platelet Count 213 x1000/uL (130-400); RBC 3.67 m/cumm (4.00-5.20); RBC Distribution Width 17.9 % (11.7-14.6)
[2019-01-12 07:32] LABS: Anion Gap 1.6 mmol/L (3-11); BUN 25 mg/dL (7-18); CO2 31.4 mmol/L (21.0-32.0); CREATININE 1.15 mg/dL (0.55-1.02); Calcium 8.3 mg/dL (8.5-10.1); Chloride 107 mmol/L (98-107); Glucose 92 mg/dL (70-100); Potassium 4.2 mmol/L (3.5-5.1); Sodium 140 mmol/L (136-145)
[2019-01-12] MEDS: Polyethylene Glycol 3350 17 GM PACKET PO (08:14)
[2019-01-12] MEDS: Pantoprazole 40 MG TABCR PO ×2 (08:15→19:43)
[2019-01-12] MEDS: Cyanocobalamin 500 MCG TAB 2000 MCG PO (08:15)
[2019-01-12] MEDS: Lactobacillus Acidophilus CAP 1 CAP PO ×2 (08:15→19:43)
[2019-01-12] MEDS: Atorvastatin 40 MG TAB PO (08:15)
[2019-01-12] MEDS: Aspirin 81 MG CHEW PO (08:15)
[2019-01-12] MEDS: Gabapentin 300 MG CAP PO ×2 (08:15→19:43)
[2019-01-12] MEDS: Potassium Chloride 20 MEQ TABCR PO (08:15)
[2019-01-12 08:23] VITALS: BP 124/73; PULSE 65; RESP 20; TEMP 36.8; O2SAT 93
--- NOTE | 2019-01-12 09:30 | MERGEMPI_ITS ---
*[facility]* *[facility]* [address] [place] [address] Myocardial Perfusion Imaging - SPECT Regadenoson Date of study: 01/12/2019 *PATIENT PRESENTATION* Height: 152.4cm (60in) Blood Pressure: Weight: 68kg (149.6lb) BSA: 1.72m^2 Referring physician: Randal Sainz MD Ordering physician: Randal Sainz MD Impressions: Abnormal study after pharmacologic stress. Summary: 1. Myocardial perfusion imaging: There is a small sized, mildly intense, partially reversible defect involving the inferolateral wall(s). This suggests small ischemia in the distribution of the left circumflex coronary artery. Overall ischemia: small. 2. The calculated left ventricular ejection fraction after stress: 52%. No left ventricular regional motion abnormality. Indication: R07.9. History: REASON FOR TESTING: PATIENT ADMITTED 01/09/19 WITH CHEST PAIN AND INDETERMINANT TROPONINS. TROPONINS HAVE REMAINED INDETERMINANT DURING THIS ADMISSION. TESTING TODAY FOR FURTHER RISK STRATIFICATION. PATIENT DENIES CHEST PAIN UPON ARRIVAL TO TESTING TODAY. SIGNIFICANT PAST MEDICAL HISTORY: HEMORRHAGIC STROKE (03/23/15), HEMORRHAGIC DISORDER D/T CIRCULATING ANTICOAGULANTS. DVT AND PE 2005, CVA, IVC FILTER. SMOKING STATUS: NEVER EXERCISE ROUTINE: SEDENTARY LIFESTYLE. Risk factors: Family history of coronary artery disease. Hypertension. Diabetes mellitus. Obesity. Dyslipidemia. Peripheral vascular disease. ALLERGIES: SULFA. METOCLOPRAMIDE. MEDICATIONS: ACETAMINOPHEN 650MG Q 4HRS PRN. ACIDOPHILUS/PECTIN 1 CAP BID. ASPIRIN 81 MG DAILY. ATORVASTATIN CALCIUM 40 MG DAILY. VITAMIN B-12, 2,000 MCG Q AM. ENOXAPARIN SODIUM 30 MG SC Q 24 HRS. GABAPENTIN 300 MG BID. HYDROCODONE BITART/ACETAMINOPHEN 1 TAB TID. LISINOPRIL 20 MG DAILY. ONDANSETRON 4 MG Q 8 HRS PRN. PANTOPRAZOLE SODIUM 40 MG BID. TRAMADOL 50 MG QID PRN. ROPINIROLE 1 MG QHS. CARVEDILOL 3.125 MG PO BID. Imaging Technique: Protocol: Regadenoson. Acquisition: Gated SPECT; 1 day - rest/stress. The patient was imaged in the supine position. Attenuation correction used. Isotope administration: - Rest. Tc[99m]-sestamibi. Dose: 10.4mCi. Injection time: 09:30 AM. Injection to stress time: 00:45. - Stress. Tc[99m]-sestamibi. Dose: 33mCi. Injection time: 11:50 AM. 1-2 min before end of exercise Baseline ECG: SINUS BRADYCARDIA. HR 59 BPM. Stress protocol: +--------+--+ + + !Stage !HR!BP (mmHg) !Comments ! +--------+--+ + + !Baseline!59!110/70 (83)! ! +--------+--+ + + !1 min !70!110/70 (83)!Inject Regadenoson.! +--------+--+ + + !3 min !67!104/60 (75)! ! +--------+--+ + + !6 min !67!110/60 (77)! ! +--------+--+ + + * Stress results: The rate-pressure product for the peak heart rate and blood pressure was 7700mm Hg/min. Stress ECG: LEXISCAN STRESS TEST ENDED IN 7 MINUTES 36 SECONDS. NORMAL HEART RATE AND BLOOD PRESSURE RESPONSE TO LEXISCAN INJECTION. OCCASIONAL PAC'S. SUBSTERNAL CHEST PRESSURE (8/10) AT 3 MINUTES POST LEXISCAN INJECTION, WHICH SUBSIDED BY 7 MINUTES POST LEXISCAN INJECTION. NO SIGNIFICANT ST SEGMENT CHANGES. Myocardial perfusion: Imaging information: gated. There is a small sized, mildly intense, partially reversible defect involving the inferolateral wall(s). This suggests small ischemia in the distribution of the left circumflex coronary artery. Overall ischemia: small. Ventricular Function (Wall Motion): The calculated left ventricular ejection fraction after stress: 52%. No left ventricular regional motion abnormality. Study data: García Kapadia MD supervised and was readily available during the procedure. This study was interpreted by [facility]. Study status: Routine. Consent: The risks, benefits, and alternatives to the procedure were explained to the patient and informed consent was obtained. Procedure: Initial setup. A baseline ECG was recorded. Surface ECG leads and manual cuff blood pressure measurements were monitored. Heart sounds: Normal. Lung sounds: Normal. Regadenoson stress test. Stress testing was performed, with regadenoson by intravenous bolus, for a total dose of 0.4mgover 10.00sec, followed by a 5ml saline flush. The infusion was terminated due to per protocol. Study completion: All catheters inserted during the procedure were removed. The patient tolerated the procedure well and was discharged from the lab. Discharge: The patient left the laboratory in stable condition. Birthdate: Patient birthdate: 1940. Sex: Gender: female. Study date: Study date: 01/12/2019. Study time: 00:01 AM. Electronically signed by García Kapadia MD 01/12/2019 16:10
[2019-01-12] MEDS: Sennosides/Docusate Sodium TAB 1 TAB PO ×2 (09:36→19:43)
[2019-01-12] MEDS: Lidocaine 5% Patch 2 PATCH TP (09:37)
--- NOTE | 2019-01-12 10:06 | PDOC.CMPRO ---
Care Management Progress Note S/O: Fay will have a stress test today. She continues to be assessed by PT/OT and remains appropriate in interaction. CM will continue to follow. Discussed community based supports: MOW, Increased High/Highest Waiver (DIRECT OF REAL ESTATE services) to support Fay at home, as well as her and Cali's ongoing mental health as they are both exhausted with each other. Cali volunteers for [employer], and could benefit from more time out of the house; per this program writer's assessment. -Emergency Fuel assistance through [employer] or [employer]. Cali reports using allotted fuel assistance and struggling with fuel costs. -Fay shared concerns around her Promis prosthetic and struggling to place it as well as discomfort with it on. Information provided to HC: Divemaster Rehana Hearn. A: 78 year old female admitted to [facility] 01/09/19 for NSTEMI, UTI P: Fay will continue to be evaluated for discharge needs. Anticipate she will return home with outpatient follow up and increased home support considerations including possible VNA/PT/OT/DIRECT OF REAL ESTATE. CM notified Rehana Hearn CM@ [facility] of discharge recommendations and follow up considerations. Fay will transport via private vehicle with her son, Cali.
--- NOTE | 2019-01-12 10:50 | OTIE_ITS ---
Occupational Therapy Notes Inpatient Occupational Therapy Evaluation Date: 01/12/19 Referring Doctor:Dr. Sainz OT Orders: (L) BKA, (R) shoulder degenerative arthritis with limited function of (R) arm. Precautions: Fall, standard PATIENT PROFILE/ADMITTING DIAGNOSIS: Pt is a 78 year old female, admitted for conservative management of NSTEMI, UTI resulting encephelopathy after presenting to ER on 01/09/19 with c/o unresolving abdominal pain. Pt has complaints of acute on chronic L shoulder pain, after fall 1-2 days ago during transfer, and is a left BKA. 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) Polymyalgia rheumatica (Chronic) Osteoarthritis of ankle (Chronic) Migraine (Chronic) Hypercholesterolemia (Chronic) Restless legs (Chronic) History of surgery (Chronic) Hx of deep vein thrombosis and pulmonary emboli 2005 (Chronic) Chronic anticoagulation (Chronic) Essential hypertension (Chronic) History of peptic ulcer disease (Chronic) 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), ankle and foot (Chronic) Venous stasis of lower extremity (Chronic) H/O: GI bleed (Chronic) H/O: CVA (cerebrovascular accident) (Chronic) Congenital deformities of feet (Chronic) CHF (congestive heart failure) (Chronic) History of left below knee amputation (Chronic) Presence of IVC filter (Chronic) Chronic congestive heart failure Essential hypertension 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 She reports that her baseline level of (I) for functional activities include bathing in the shower sitting on a shower bench, toileting on toilet with raised toilet seat, eating (I), sitting in her wheelchair at the sink for teeth and hair care, dressing (I) in the sitting position. Equipment owned/DME: cane, walker, ramp, raised toilet seat, hand shower, grab bars, wheelchair for mobility at home. SUBJECTIVE: Pt was sitting in bed when OT arrived. She was agreeable to OT consult. OBJECTIVE: General Observation: IV R cubital fossa. L BKA. Mental Status: A&Ox3 Pain: pain in (R) UE which she reports is very painful. ROM: Right Upper Extremity: Limited AROM to only 40 degrees of scapular movement and flexion otherwise WNL. Pt denies PROM and reports that someone came into her room and performed this and her pain has been worse since. Left Upper Extremity: WNL STRENGTH: Right Upper Extremity: Pt will not let OT check shoulder and elbow. Healthcare Administrative Assistant is symmetrical and equal. Left Upper Extremity: Grossly 4-/5 throughout FUNCTIONAL MOBILITY/ADLS: Performed prior to OT arrival. BALANCE: Static sitting Normal Dynamic Sitting Good SPECIAL TESTS: Daily Activity Limitations Standardized Measure [facility] AM -PAC ?6 clicks? Daily Activity Inpatient Short Form: Raw score: 18 Standardized score: 38.66 CMS score: 46.65% INFORMED CONSENT/EDUCATION: Pt instructed in purpose of OT Consult and plan of care. ASSESSMENT: Patient is a 78-year-old female referred to occupational therapy services with diagnosis of (L) BKA, (R) shoulder degenerative arthritis with limited function of (R) arm who was admitted through the ER for UTI and NSTEMI. Patient presents with clinical signs and symptoms consistent with dx, as demonstrated by the following impairment level findings: Decreased functional activity tolerance, decreased ROM/Strength of (R) UE, large medical hx, decreased functional use of (R) UE due to pain and discomfort. Impairments are contributing to the following functional limitations: Decreased (I) in ADLs as pt performed them at her baseline level of function. AMPAC score 18, CMS score 46.65% Patient is assessed as a Moderate 64006 complexity based on the following: History: See Above Examination: See Above Presentation: Evolving Decision Making: AMPAC score 18, CMS score 46.65% GOALS Goals x1 week in hospital setting. 1. Dressing Sitting in chair (I) with UE/LE dressing. 2. Bathing Sitting in chair at sink, pt will be able to (I) wash (B) UE and min (A) LE 3. Toileting On toilet with min (A) 4. Eating Sitting in chair (I) 5. Grooming Sitting at sink with wheelchair, (I) with teeth and hair brushing. PLAN OF CARE/TREATMENT PLAN: 1x/day, 5 days/ week x 1week Initiate Occupational Therapy Services for bathing, dressing, grooming, toileting, eating, transfer training. DISCHARGE RECOMMENDATIONS Home with Home Health Services when medically cleared per MD. TREATMENT TIME/MINUTES/CODES 45944, 23 minutes (09:40) Iliana Perez OTR/[facility]
--- NOTE | 2019-01-12 11:20 | CMPROGNOTE_ITS ---
Care Management Progress Note S/O: Fay will have a stress test today. She continues to be assessed by PT/OT and remains appropriate in interaction. CM will continue to follow. Discussed community based supports: MOW, Increased High/Highest Waiver (SHOP AND ALTERATION TAILOR services) to support Fay at home, as well as her and Cali's ongoing mental health as they are both exhausted with each other. Cali volunteers for [employer], and could benefit from more time out of the house; per this sba underwriter's assessment. -Emergency Fuel assistance through [employer] or [employer]. Cali reports using allotted fuel assistance and struggling with fuel costs. -Fay shared concerns around her Promis prosthetic and struggling to place it as well as discomfort with it on. Information provided to HC: Motorized Squad Captain Rehana Hearn. A: 78 year old female admitted to [facility] 01/09/19 for NSTEMI, UTI P: Fay will continue to be evaluated for discharge needs. Anticipate she will return home with outpatient follow up and increased home support considerations including possible VNA/PT/OT/SHOP AND ALTERATION TAILOR. CM notified Rehana Hearn CM@ [email or web address] of discharge recommendations and follow up considerations. Fay will transport via private vehicle with her son, Cali.
--- NOTE | 2019-01-12 11:59 | PT.INNT ---
Date of service: 01/12/19 Time of Service: 11:59 PT Notes 01/12/19 Patient not available to particpate in PT x3. Will attempt to resume PT services this afternoon.
[2019-01-12] MEDS: Regadenoson 0.4 MG/5 ML SYR IVP (12:00)
[2019-01-12] MEDS: HYDROcodone 5/Acetaminophen 325 TAB PO (13:58)
[2019-01-12] MEDS: Enoxaparin 30 MG/0.3 ML SYR SC (14:03)
--- NOTE | 2019-01-12 15:11 | PT.INTREAT ---
Date of service: 01/12/19 Time of Service: 15:11 PT Notes Inpatient Physical Therapy Treatment Note [facility] Date: 01/12/19 PRECAUTIONS: L BKA, Fall SUBJECTIVE: Fay states that she is very uncomfortable, as she ahs been constipated for over a week and would like to try to use the bathroom. OBJECTIVE: Patient refused gait belt t/o entire treatment PAIN: Patient c/o significant L arm pain BED MOBILITY/TRANSFERS Sit-stand: CGA Stand-sit: CGA GAIT Assistive Device: No AD Weight bearing: Full on R LE Assist: CGA Distance: Stand-pivot transfer wheelchair<>toilet, wheelchair<>chair TOILETING: Patient toileted with assist. ASSESSMENT: Patient tolerated session with c/o L arm pain. She was able to demonstrate stand-pivot transfers x4 with CGA only. She would benefit from continued transfer training and participation in a strengthening program for improved mobility. PLAN: Continue with PT's POC TREATMENT CODE/TIME: 25 minutes; 01101 x2
--- NOTE | 2019-01-12 15:18 | PTTR_ITS ---
Date of service: 01/12/19 Time of Service: 15:11 PT Notes Inpatient Physical Therapy Treatment Note [facility] Date: 01/12/19 PRECAUTIONS: L BKA, Fall SUBJECTIVE: Fay states that she is very uncomfortable, as she ahs been con stipated for over a week and would like to try to use the bathroom. OBJECTIVE: Patient refused gait belt t/o entire treatment PAIN: Patient c/o significant L arm pain BED MOBILITY/TRANSFERS Sit-stand: CGA Stand-sit: CGA GAIT Assistive Device: No AD Weight bearing: Full on R LE Assist: CGA Distance: Stand-pivot transfer wheelchair<>toilet, wheelchair<>chair TOILETING: Patient toileted with assist. ASSESSMENT: Patient tolerated session with c/o L arm pain. She was able to demonstrate stand-pivot transfers x4 with CGA only. She would benefit from continued transfer training and participation in a strengthening program for im proved mobility. PLAN: Continue with PT's POC TREATMENT CODE/TIME: 25 minutes; 91500 x2
--- NOTE | 2019-01-12 16:04 | W.PM.PROGNOT ---
Date of Service Date of service: 01/12/19 Time of Service: 11:00 Assessment and Plan (1) Elevated troponin: Current visit: No Status: Acute No recurrence of chest pain. Blood pressure and pulse better since stopping carvedilol. MPI stress test showing small area of reversible defect, left circumflex distribution with normal LV function. She is intolerant of beta-blockers. Chronically on an MOIRA inhibitor. I think we are left treating her with aspirin and statin. Given the low ischemic burden I do not think we need to consider coronary angiography. (2) UTI (urinary tract infection): Current visit: No Status: Acute No symptoms. Finishes antibiotics this evening. (3) Obstipation: Current visit: No Status: Acute No no bowel movement since the emergency room. Continue polyethylene glycol, add senna. Might need suppository or enema if this is unsuccessful. (4) DVT prophylaxis: Current visit: No Status: Acute On prophylactic Lovenox. 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 I have asked Dr. Michel to review the films and render an opinion as to whether or not anything needs to be done about this. Pain management with her outpatient opiates tramadol and gabapentin. I have reduced her hydrocodone dose to her outpatient dose as of today. Gabapentin dose was decreased a few days ago and she seems to be doing okay overall with pain management. Qualifiers: Osteoarthritis type: primary Qualified Code(s): M19.011 - Primary osteoarthritis, right shoulder (6) Metabolic encephalopathy: Current visit: No Status: Acute Mental status continues to improve, I think her insight telepathy was due to her pain meds. She is doing better with the lower dose gabapentin and hydrocodone in terms of her mental status. (7) H/O: GI bleed: Current visit: No Status: Chronic Has not had any evidence of GI bleed. Seen on prophylactic dose Lovenox, watch for any evidence of GI bleed. Continue PPI. (8) Bradycardia: Current visit: No Status: Acute Resolved since stopping carvedilol (9) Hypokalemia: Current visit: No Status: Acute Better, decrease potassium supplement read she is not on a diuretic chronically and potassium probably can be discontinued at the time of discharge. (10) Essential hypertension: Current visit: No Status: Chronic Blood pressures have been acceptable on no treatment lisinopril still on hold. Likely will need to resume this on discharge. Subjective Interval history since last seen: No chest pain but still having shoulder pain. Spirits are doing better. She is more alert and feisty. Denies trouble breathing. She has not had a bowel movement. Has not had recurrence of abdominal pain. No nausea or vomiting. No dysuria. Exam Narrative Exam Narrative: Awake alert speech is a little bit sluggish, at baseline since her stroke. No JVD. Lungs clear. Mostly regular heart rhythm occasional ectopic beat no S3 or S4. Abdomen soft no tenderness anywhere normal bowel sounds. No edema with good pulse in her right foot. Residual limb on the left with no erythema or edema. Objective Objective Clinical Data: Abnormal lab results MPI stress test showing small mildly intense partially reversible defect inferior lateral wall with LVEF estimated at 52%. 01/12/19 01/12/19 Range/Units 06:35 06:35 RBC 3.67 L (4.00-5.20) m/cumm Hgb 10.1 L (12.0-15.5) g/dL Hct 34.1 L (36.0-46.0) % MCHC 29.6 L (32.0-36.0) g/dL RDW 17.9 H (11.7-14.6) % Anion Gap 1.6 L (3-11) mmol/L BUN 25 H (7-18) mg/dL Creatinine 1.15 H (0.55-1.02) mg/dL Calcium 8.3 L (8.5-10.1) mg/dL Vital Signs Temperature 36.8 C 01/12/19 08:23 Temperature Source Tympanic 01/12/19 08:23 Pulse 65 01/12/19 08:23 Pulse Rhythm Regular 01/12/19 10:29 Pulse 62 01/10/19 13:00 Respiratory Rate 20 01/12/19 08:23 Respiratory Effort Non-Labored 01/12/19 10:29 Respiratory Depth Normal 01/12/19 10:29 Respiratory Pattern Normal 01/12/19 10:29 Blood Pressure 124/73 01/12/19 08:23 Blood Pressure Mean 69 01/10/19 08:29 Blood Pressure Position Supine 01/09/19 23:29 Pulse Oximetry 93 L 01/12/19 08:23 Oxygen Delivery Method Room Air 01/12/19 08:23 Oxygen Flow Rate 0 01/12/19 08:23 Pain Level 4 01/12/19 13:58 Comment 01/10/19 06:44 Intake & Output 01/11/19 01/12/19 01/12/19 23:59 11:59 23:59 Intake Total 148 / 1969 Output Total 100 / 400 100 / 100 Balance 1380 / 1570 1676 Weight 68 kg Intake: IV 1000 / 1010 1702 / 1702 Oral 480 / 960 75 / 315 240 / 315 Output: Urine 100 / 400 100 / 100 Other: Urine Color Straw Yellow Yellow Urine Appearance Clear Clear Comment pt voided in toilet. Stool Size Copious Stool Characteristics Soft Brown Voiding Methods Bedpan Bedside Commode Bedside Commode Laboratory Results WBC 6.60 k/cumm (4.4-10.8) 01/12/19 06:35 RBC 3.67 m/cumm (4.00-5.20) L 01/12/19 06:35 Hgb 10.1 g/dL (12.0-15.5) L 01/12/19 06:35 Hct 34.1 % (36.0-46.0) L 01/12/19 06:35 MCV 92.9 fL (80-95) 01/12/19 06:35 MCH 27.5 pg (27.0-33.0) 01/12/19 06:35 MCHC 29.6 g/dL (32.0-36.0) L 01/12/19 06:35 RDW 17.9 % (11.7-14.6) H 01/12/19 06:35 Plt Count 213 x1000/uL (130-400) 01/12/19 06:35 MPV 10.9 fL (8.0-11.0) 01/12/19 06:35 Immature Gran % 0.3 01/09/19 15:46 Neutrophils % 78.2 01/09/19 15:46 Lymphocytes % 13.3 01/09/19 15:46 Monocytes % 8.1 01/09/19 15:46 Eosinophils % 0.0 01/09/19 15:46 Basophils % 0.1 01/09/19 15:46 Absolute Neutrophils 7.81 k/cumm (1.2-6.7) H 01/09/19 15:46 Absolute Lymphocytes 1.33 k/cumm (1.2-3.4) 01/09/19 15:46 Absolute Monocytes 0.81 k/cumm (0.11-0.7) H 01/09/19 15:46 Absolute Eosinophils 0.00 k/cumm (0.0-0.7) 01/09/19 15:46 Absolute Basophils 0.01 k/cumm (0.0-0.2) 01/09/19 15:46 Differential Comment Rbc morph reviewed 01/09/19 15:46 RBC Morphology See below 01/09/19 15:46 Hypochromasia 2+ 01/09/19 15:46 Poikilocytosis 1+ 01/09/19 15:46 Anisocytosis 2+ 01/09/19 15:46 PT 12.9 sec (9.3-11.0) H 01/09/19 15:46 INR 1.3 (0.9-1.1) H 01/09/19 15:46 APTT 26.4 sec (21.0-31.4) 01/09/19 15:46 Sodium 140 mmol/L (136-145) 01/12/19 06:35 Potassium 4.2 mmol/L (3.5-5.1) D 01/12/19 06:35 Chloride 107 mmol/L (98-107) 01/12/19 06:35 Carbon Dioxide 31.4 mmol/L (21.0-32.0) 01/12/19 06:35 Anion Gap 1.6 mmol/L (3-11) L 01/12/19 06:35 BUN 25 mg/dL (7-18) H 01/12/19 06:35 Creatinine 1.15 mg/dL (0.55-1.02) H 01/12/19 06:35 Estimated GFR/1.73 m2 45.40 (mL/min/1.73m2) 01/12/19 06:35 Glucose 92 mg/dL (70-100) 01/12/19 06:35 Calcium 8.3 mg/dL (8.5-10.1) L 01/12/19 06:35 Magnesium 1.7 mg/dL (1.8-2.4) L 01/09/19 15:46 Total Bilirubin 0.6 mg/dL (0.2-1.0) 01/10/19 06:05 AST 18 U/L (15-37) 01/10/19 06:05 ALT < 6 U/L (12-78) L 01/10/19 06:05 Alkaline Phosphatase 75 U/L (46-116) 01/10/19 06:05 Troponin I 0.28 ng/mL (0.00-0.06) H* 01/10/19 03:45 Total Protein 4.9 g/dL (6.4-8.2) L 01/10/19 06:05 Albumin 2.0 g/dL (3.4-5.0) L 01/10/19 06:05 Lipase 110 U/L (73-393) 01/09/19 15:46 TSH 0.45 uIU/mL (0.358-3.74) 01/09/19 23:40 Urine Color Yellow (Yellow) 01/09/19 15:25 Urine Clarity Sl cloudy 01/09/19 15:25 Urine pH 5.5 (5-8) 01/09/19 15:25 Ur Specific [place] >= 1.030 (1.005-1.025) H 01/09/19 15:25 Urine Protein 30 mg/dL (Negative) H 01/09/19 15:25 Urine Ketones Negative mg/dL (Negative) 01/09/19 15:25 Urine Blood Negative (Negative) 01/09/19 15:25 Urine Nitrite Negative (Negative) 01/09/19 15:25 Urine Bilirubin Small (Negative) H 01/09/19 15:25 Urine Urobilinogen 1.0 EU/dL (Up TO 0.2) H 01/09/19 15:25 Ur Leukocyte Esterase Trace (Negative) H 01/09/19 15:25 Urine RBC Not Applicable 01/09/19 15:25 Urine WBC Not Applicable 01/09/19 15:25 Ur Epithelial Cells HPF (Negative) 01/09/19 15:25 Urine Crystals Not Applicable 01/09/19 15:25 Urine Bacteria Not Applicable 01/09/19 15:25 Urine Mucus Not Applicable 01/09/19 15:25 Ur Culture Indicated? No/sq. contamination 01/09/19 15:25 Urine Glucose Negative mg/dL (Negative) 01/09/19 15:25
[2019-01-12 16:51] VITALS: BP 103/58; PULSE 62; RESP 17; TEMP 36.9; O2SAT 96
--- NOTE | 2019-01-12 18:11 | PHARADMIT ---
Admission Pharmacy Clinical Review NSTEMI, UTI Code Status DNR/DNI Current Weight 68 kg Renally Cleared and Narrow Therapeutic Index Meds CrCl~28ml/min QTc Value / Action Taken QTC 480-not med related, although Tramadol ordered BP Control, Fever BP 103/58, aFEBRILE, Pain 4/10 Electrolytes reviewed K+ 4.2, Mag 1.7 several days ago DVT Prophylaxis Lovenox 30mg (renally adjusted) Opiate Usage / Scheduled Bowel Regimen Ordered yes/yes Vicodin dose decreased a few times, Tramadol Lidoderm patches/Gabapentin for shoulder Plt/SCr for Heparin / Enoxaparin Plt 213 SCr 1.15 INR for Warfarin H/H stable, WBC/Bands H/H 10.1/34.1 WBC 6.60 Antibiotic appropriateness Rocephin for UTI...last dose tonight (4th dose) Cultures and Sensitivities Urine 10-50K gram + Surgical ABX d/c within 24 hr DM control / Insulin Dosing Heart Failure (Check EF%) (MOIRA's, B-Block, Diuretics) Lisinopril on HOLD IV to PO Switch Home Meds Reviewed Home Meds Not Ordered Comments Troponin's ? indeterminate Constipation resolved, c/o numbness in fingers/feet Ortho consult for shoulder MPI later this afternoon if they can fit her in Had some sinus Jaylen, Coreg dc'd, Lisinopril ON HOLD
[2019-01-12] MEDS: traMADol 50 MG TAB PO (19:47)
[2019-01-12 19:54] VITALS: BP 118/61; PULSE 69; RESP 18; TEMP 37.1; O2SAT 92
[2019-01-12] MEDS: rOPINIRole 0.5 MG TAB 1 MG PO (22:23)
[2019-01-13 01:04] VITALS: BP 118/68; PULSE 67; RESP 17; TEMP 36.8; O2SAT 92
[2019-01-13 03:29] VITALS: BP 107/67; PULSE 70; RESP 19; TEMP 37.1; O2SAT 93
[2019-01-13] MEDS: Ondansetron 4 MG TAB PO ×2 (06:04→13:48)
[2019-01-13 07:49] VITALS: BP 123/63; PULSE 65; RESP 18; TEMP 37.2; O2SAT 93
[2019-01-13] MEDS: Sennosides/Docusate Sodium TAB 1 TAB PO (08:16)
[2019-01-13] MEDS: Gabapentin 300 MG CAP PO (08:16)
[2019-01-13] MEDS: Potassium Chloride 20 MEQ TABCR PO (08:16)
[2019-01-13] MEDS: Aspirin 81 MG CHEW PO (08:17)
[2019-01-13] MEDS: Lactobacillus Acidophilus CAP 1 CAP PO (08:18)
[2019-01-13] MEDS: Polyethylene Glycol 3350 17 GM PACKET PO (08:19)
[2019-01-13] MEDS: Atorvastatin 40 MG TAB PO (08:20)
[2019-01-13] MEDS: Pantoprazole 40 MG TABCR PO (08:20)
[2019-01-13] MEDS: Cyanocobalamin 500 MCG TAB 2000 MCG PO (08:21)
--- NOTE | 2019-01-13 09:08 | PDOC.CMPRO ---
- If Service Date Differs Date of service: 01/13/19 Time of Service: 09:08
--- NOTE | 2019-01-13 10:01 | PT.INTREAT ---
Date of service: 01/13/19 Time of Service: 10:01 PT Notes Inpatient Physical Therapy Treatment Note [facility] Date: 01/13/19 PRECAUTIONS: L BKA, Fall SUBJECTIVE: Fay is agreeable to participating in PT. She reports that her L UE continues to be very painful, I think it's broken. OBJECTIVE: PAIN: Please see subjective portion of this note BED MOBILITY/TRANSFERS Supine-sit: Min A Sit-stand: CGA Stand-sit: CGA Bed-Chair: CGA GAIT Assistive Device: No AD Weight bearing: Full R Assist: CGA Distance: Stand pivot transfer bed>commode, commode>wheelchair, wheelchair>chair Deviation: L UE pain TOILETING: Patient toileted with assist. ASSESSMENT: Patient tolerated session with c/o L arm pain with transfers. She was able to tolerate an increased number of stand-pivot transfers today with CGA. She would benefit from continued transfer training as well as strengthening for improved mobility. PLAN: Continue with PT's POC TREATMENT CODE/TIME: Session 1: 35 minutes; [id number] x2
[2019-01-13] MEDS: Lidocaine 5% Patch 2 PATCH TP (10:06)
[2019-01-13 11:19] VITALS: BP 114/59; PULSE 65; RESP 18; TEMP 37.4; O2SAT 92
[2019-01-13] MEDS: traMADol 50 MG TAB PO (11:52)
[2019-01-13] MEDS: Enoxaparin 30 MG/0.3 ML SYR SC (11:52)
--- NOTE | 2019-01-13 13:45 | DSE_ITS ---
Date of service: 01/13/19 Time of Service: 18:30 DS: Diagnosis Discharge Diagnosis (1) Elevated troponin: Status: Acute (2) UTI (urinary tract infection): Status: Acute (3) Obstipation: Status: Acute (4) DVT prophylaxis: Status: Acute (5) DJD of right shoulder: Status: Chronic (6) Metabolic encephalopathy: Status: Acute (7) H/O: GI bleed: Status: Chronic (8) Bradycardia: Status: Acute (9) Hypokalemia: Status: Acute (10) Essential hypertension: Status: Chronic Discharge Plan Disposition Patient Disposition: HOME W/HOME HEALTH SERVICE Condition: Improving Discharge Details Reason For Visit: NSTEMI,UTI Admit Date/Time: 01/11/19 08:25 Admit Provider: Hermelindo Miller Attending Provider: Hermelindo Miller Primary Care Provider: Randal Sainz Hospital Course Hospital Course: 78-year-old woman that presented with chest pain. Serial troponins were checked and peaked at 0.37. She underwent MPI testing 01/12/2019, a small anterior defect was noted. It was elected to treat her with medical management. Patient had severe bradycardia on carvedilol so this was stopped. She is deemed intolerant of beta-blockers. She is maintained on MOIRA inhibitors and low-dose aspirin therapy. Her right shoulder was causing discomfort. Dr. Michel notes that she has severe DJD with anterior partial dislocation and would need a total shoulder replacement for which he recommends follow-up with Dr. Daniel at [facility]. She had some visual hallucinations overnight with use of tramadol. Pain control will try to avoid tramadol. Home Meds and New Rx's Prescriptions: New atorvastatin [Lipitor] 40 mg Tablet 40 mg PO DAILY Qty: 30 RF: 0 lidocaine [Lidoderm] 5 % Adhesive Patch,Medicated 2 patch topical Q24H Qty: 60 RF: 0 aspirin 81 mg Tablet,Chewable 81 mg PO DAILY Qty: 100 RF: 0 Continued ropinirole 0.5 MG tablet 1 mg PO HS Qty: 60 RF: 0 gabapentin 300 MG capsule 400 - 800 mg PO BID RF: 0 cyanocobalamin (vitamin B-12) [Vitamin B-12] 500 MCG tablet 2,000 mcg PO QAM RF: 0 Stool Softener 50 MG capsule 1 cap PO BID PRN PRNQty: 0 RF: 0 acetaminophen 325 mg Tablet 650 mg PO Q4H PRNRF: 0 magnesium hydroxide [Milk of Magnesia] 400 mg/5 mL Suspension 30 ml PO PRN PRNRF: 0 bisacodyl 10 mg Suppository 1 ea MD DIRECTED RF: 0 polyethylene glycol 3350 17 gram Powder In Packet 17 g PO QAM RF: 0 Lactobacillus acidophilus [Acidophilus] Capsule 1 cap PO BID RF: 0 pantoprazole [Protonix] 40 mg tablet,delayed release (DR/EC) 40 mg PO BID Qty: 60 RF: 0 lisinopril 20 mg Tablet 20 mg PO DAILY RF: 0 loperamide 2 mg Tablet 2 mg PO PRN PRNRF: 0 Sarna Sensitive 1 % Lotion 1 applic topical DAILY RF: 0 hydrocodone-acetaminophen 1 TAB tablet 1 tab PO TID RF: 0 ondansetron HCl 4 mg Tablet 4 mg PO Q8H RF: 0 Discontinued carvedilol 3.125 MG tablet 3.125 mg PO BID RF: 0 tramadol 50 mg Tablet 50 mg PO QID PRNRF: 0 cephalexin [Keflex] 500 mg Capsule 500 mg PO QID RF: 0 Discharge Instructions Instructions: Myocardial Infarction (DC), Urinary Tract Infection in Women (DC) Stand Alone Forms: Nursing Discharge Form Referrals: Randal Sainz MD [Primary Care Provider] - 01/20/19 3:05 pm Activity:: Activity as Tolerated Equipment/Supplies:: No Equipment Needed Diet:: As Tolerated Discharge Orders Discharge Orders: Discharge Order (Routine); Ordered 01/13/19 Ordered By: García Inman Discharge Data Discharge Date/Time-TO BE ENTERED AT DEPARTURE: 01/13/19 16:05 Exam Narrative Exam Narrative: This is quite a debilitated woman sitting up in bed alert and somewhat gregarious in our interaction. She seemed to be oriented and cognizant of her surroundings. She had no respiratory difficulty. She was not complaining of any chest discomfort. The abdominal exam was benign. She has a left below the knee amputation that is dressed and stable. 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 She was having no painful conditions at the time of my exam. DS: Data Vitals/I&O Vitals and I&O: Vital Signs Temperature 37.4 C 01/13/19 11:19 Temperature Source Tympanic 01/13/19 11:19 Pulse 65 01/13/19 11:19 Pulse Rhythm Regular 01/13/19 11:20 Pulse 62 01/10/19 13:00 Respiratory Rate 18 01/13/19 11:19 Respiratory Effort Non-Labored 01/13/19 11:20 Respiratory Depth Normal 01/13/19 11:20 Respiratory Pattern Irregular 01/13/19 11:20 Blood Pressure 114/59 L 01/13/19 11:19 Blood Pressure Mean 69 01/10/19 08:29 Blood Pressure Position Supine 01/09/19 23:29 Pulse Oximetry 92 L 01/13/19 11:19 Oxygen Delivery Method Room Air 01/13/19 11:19 Oxygen Flow Rate 0 01/13/19 11:19 Pain Level 5 01/13/19 11:52 Comment 01/13/19 07:49 Intake & Output 01/12/19 01/13/19 01/13/19 23:59 11:59 23:59 Intake Total 2016 240 / 240 Balance 240 / 1916 240 / 240 Weight 67.5 kg Intake: Oral 240 / 315 240 / 240 Other: Urine Color Yellow Yellow Urine Appearance Clear Urine Odor None Comment pt voided in toilet. 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) Polymyalgia rheumatica (Chronic) Osteoarthritis of ankle (Chronic) Migraine (Chronic) Hypercholesterolemia (Chronic) Restless legs (Chronic) History of surgery (Chronic) Hx of deep vein thrombosis and pulmonary emboli 2005 (Chronic) Chronic anticoagulation (Chronic) Essential hypertension (Chronic) History of peptic ulcer disease (Chronic) 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), ankle and foot (Chronic) Venous stasis of lower extremity (Chronic) H/O: GI bleed (Chronic) H/O: CVA (cerebrovascular accident) (Chronic) Congenital deformities of feet (Chronic) CHF (congestive heart failure) (Chronic) History of left below knee amputation (Chronic) Presence of IVC filter (Chronic) Chronic congestive heart failure Essential hypertension 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
--- NOTE | 2019-01-13 13:56 | PDOC.HHF2F ---
1. Encounter Date and Reason I certify that SAADIA GAN was seen by García Inman on 01/13/19 and that I had a [id number] encounter with this patient that meets the physician face to face encounter requirements. 2. Clinical Findings Supporting Skilled Need and Homebound Status I certify that home health services are medically necessary, include either intermittent senior living and/or physical/speech therapy, and that this patient is homebound in that absences from the home require considerable and taxing effort and are infrequent or of short duration, or are attributable to the need to receive medical care. [X] (a) Attached documentation from encounter provides clinical findings supporting skilled need and homebound status (including what assistance patient requires to leave the home). The encounter with the patient was in whole, or in part, for the following medical condition, which is the primary reason for home health care: NSTEMI,UTI Penitentiary:New medications, monitor for side effects Physical Therapy:and OT - for strengthening, return of ADLs Speech Therapy: Homebound:Pt is s/p LBKA and Right charcot foot, immobile without assistance 3. Certification and Authentication I certify that I composed the above information based on my clinical judgement relating to this patient's medical condition and, if applicable, clinical findings communicated to me by the NPP or inpatient physician who performed the Home Health Referral. All further orders will be obtained through ___Dr. Sainz (Community Based Physician - PCP)
[2019-01-13] MEDS: HYDROcodone 5/Acetaminophen 325 TAB PO (15:04)
[2019-01-13] MEDS: Mylanta Suspension 30 ML CUP PO (15:31)
--- NOTE | 2019-01-13 17:57 | PDOC.CMDIS ---
- If Service Date Differs Date of service: 01/13/19 Time of Service: 17:58 LACE Index Scoring Tool - Questions: Acuity (Admit via E.D.?): Yes Comorbidities: Previous M.I., PVD, Congestive Heart Failure Care Management Discharge Reason for Hospitalization: NSTEMI, UTI Discharge Plan: Fay is being discharged home today she has new home health nursing, PT and OT. CM left a voicemail for [facility] and notified of discharge. Fay is engaged with CM during discharge education, at time she does appear confused. CM request primary nurse review instructions with the patient and her son Cali when he arrives. Fay states she has times when she is unable to think striaght. She states that Cali takes good care of her. She does complain a lot of right shoulder pain. She states this has been ongoing since a fall at home. She has an appointment on 01/20/19 with . CM encouraged her to discuss pain management with . CM also faxed discharge note to the provider for follow up. Fay feels ready to return home she states she cannot sleep at the hosptial. Her son Cali will pick her up at time of discharge. Patient/Family Education Needs: Discharge education, limitations and follow up plan of care. [place] [facility] [place] Care Services, Outpatient Therapy, Physical Therapy
--- NOTE | 2019-01-13 18:04 | CMDISCH_ITS ---
- If Service Date Differs Date of service: 01/13/19 Time of Service: 17:58 LACE Index Scoring Tool - Questions: Acuity (Admit via E.D.?): Yes Comorbidities: Previous M.I., PVD, Congestive Heart Failure Care Management Discharge Reason for Hospitalization: NSTEMI, UTI Discharge Plan: Fay is being discharged home today she has new home health nursing, PT and OT. CM left a voicemail for [facility] and notified of discharge. Fay is engaged with CM during discharge education, at time she does appear confused. CM request primary nurse review instructions with the patient and her son Cali when he arrives. Fay states she has times when she is unable to think striaght. She states that Cali takes good care of her. She does complain a lot of right shoulder pain. She states this has been ongoing since a fall at home. She has an appointment on 01/20/19 with . CM encouraged her to discuss pain management with . CM also faxed discharge note to the provider for follow up. Fay feels ready to return home she states she cannot sleep at the hosptial. Her son Cali will pick her up at time of discharge. Patient/Family Education Needs: Discharge education, limitations and follow up plan of care. [place] [facility] [place], Outpatient Therapy, Physical Therapy
--- NOTE | 2019-01-14 08:21 | OTDS_ITS ---
Date of service: 01/14/19 Time of Service: 08:17 Occupational Therapy Notes Occupational Therapy Inpatient Discharge Summary Dates of Service: 01/12/19-01/13/19 Date: 01/14/19 for 01/13/19 Referring Doctor:Dr. Sainz OT Orders: (L) BKA, (R) shoulder degenerative arthritis with limited function of (R) arm. Precautions: Fall, standard PATIENT PROFILE/ADMITTING DIAGNOSIS: Pt is a 78 year old female, admitted for conservative management of NSTEMI, UTI resulting encephelopathy after presenting to ER on 01/09/19 with c/o unresolving abdominal pain. Pt has complaints of acute on chronic L shoulder pain, after fall 1-2 days ago during transfer, and is a left BKA. 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) Polymyalgia rheumatica (Chronic) Osteoarthritis of ankle (Chronic) Migraine (Chronic) Hypercholesterolemia (Chronic) Restless legs (Chronic) History of surgery (Chronic) Hx of deep vein thrombosis and pulmonary emboli 2005 (Chronic) Chronic anticoagulation (Chronic) Essential hypertension (Chronic) History of peptic ulcer disease (Chronic) 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), ankle and foot (Chronic) Venous stasis of lower extremity (Chronic) H/O: GI bleed (Chronic) H/O: CVA (cerebrovascular accident) (Chronic) Congenital deformities of feet (Chronic) CHF (congestive heart failure) (Chronic) History of left below knee amputation (Chronic) Presence of IVC filter (Chronic) Chronic congestive heart failure Essential hypertension 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 She reports that her baseline level of (I) for functional activities include bathing in the shower sitting on a shower bench, toileting on toilet with raised toilet seat, eating (I), sitting in her wheelchair at the sink for teeth and hair care, dressing (I) in the sitting position. Equipment owned/DME: cane, walker, ramp, raised toilet seat, hand shower, grab bars, wheelchair for mobility at home. THIS NOTE SERVES A SUMMARY OF CARE FOR PATIENT NO SKILLED OT SERVICES PROVIDED FOR THIS NOTE SUBJECTIVE: NT OBJECTIVE: ROM: Right Upper Extremity: Limited AROM to only 40 degrees of scapular movement and flexion otherwise WNL. Pt denies PROM and reports that someone came into her room and performed this and her pain has been worse since. Left Upper Extremity: WNL STRENGTH: Right Upper Extremity: Pt will not let OT check shoulder and elbow. 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 Left Upper Extremity: Grossly 4-/5 throughout FUNCTIONAL MOBILITY/ADLS: NT BALANCE: Static sitting Normal Dynamic Sitting Good ASSESSMENT: Patient is a 78-year-old female referred to occupational therapy services with diagnosis of (L) BKA, (R) shoulder degenerative arthritis with limited function of (R) arm who was admitted through the ER for UTI and NSTEMI. Pt was seen for OT evaluation only. She was discharged on 01/13/19 and medically cleared per MD. Goals were not obtained. GOALS: Pt was seen for OT eval only, goals were not tested. 1. Dressing Sitting in chair (I) with UE/LE dressing. 2. Bathing Sitting in chair at sink, pt will be able to (I) wash (B) UE and min (A) LE 3. Toileting On toilet with min (A) 4. Eating Sitting in chair (I) 5. Grooming Sitting at sink with wheelchair, (I) with teeth and hair brushing. PLAN OF CARE/TREATMENT PLAN: Pt was discharged on 01/13/19 when medically cleared per MD. DISCHARGE RECOMMENDATIONS Home with Home Health Services when medically cleared per MD. TREATMENT TIME/MINUTES/CODES N/A Iilana Perez OTR/L [facility]
--- NOTE | 2019-01-15 14:20 | PT.INDS ---
Date of service: 01/15/19 PT Notes Inpatient Physical Therapy Discharge Summary Dates: 01/15/2019 Dates of Service: 01/11/19 through 01/13/19 Referring Doctor: Randal Sainz MD PT Orders: PT CONSULT: Maintain/improve transfer ability Precautions: L BKA amputee, standard Patient Profile/Admitting Diagnosis: 78 y o female, admitted for conservative management of Non-ST elevation RI (NSTEMI), UTI (urinary tract infection), and resulting encephelopathy after presenting to ER on 01/09/19 with c/o unresolving abdominal pain. Also struggling with acute on chronic R shoulder pain, after fall 1-2 days ago during transfer, and is a left BKA. Referred for therapy to maintain her current transfer abilities. 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), ankle and foot (Chronic) Venous stasis of lower extremity (Chronic) H/O: GI bleed (Chronic) H/O: CVA (cerebrovascular accident) (Chronic) Congenital deformities of feet (Chronic) CHF (congestive heart failure) (Chronic) History of left below knee amputation (Chronic) Presence of IVC filter (Chronic) Chronic congestive heart failure Essential hypertension 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 Fay is mostly independent with ADL's, requiring supervision with transfers. They have 2 additional sons nearby and a daughter who lives in [place] as well. Current Functional Limitations: CG x 2 with transfers, and min A x 1 for bed mobiltiy. Equipment Owned/DME: Has a cane, walker, ramp, raised toilet seat, hand shower, handrails, w/c at home. This is a clinical summary of the physical therapy intervention provided for patient on the date listed above. Subjective: C/o of R shoulder pain, reporting fall on either Saturday or Saturday while transferring from toilet to . Reports pain of 8/10, lateral acromial region. Did have pre-existing discomfort and arthritis, but not at this intensity. She does not generally use her prosthetic leg, as she finds it to difficult to don and doff. She uses a pediatric walker at home, to assist with stand pivot transfers. She has a normal bed, and using an overhang bar to assist with bed mobility. Objective: General Observation: Lying reclined in bed, IV R cubital fossa. L BKA. Deformed R ankle, remarkably pronated. Remarkable crepitus with passive movement of R shoulder. Mental Status: A&Ox3 Pain: 8/10 R shoulder with movement and with rest. ROM: Right Upper Extremity: Limited actively to only 30-40 degrees of scapular movement and flexion. Passive achieves 90 degrees scapular movement, and flexion, ER 30 degrees and IR 45 degrees all painful. Pain with elbow flexion with drawing through tricep tissue, otherwise WNL. Left Upper Extremity: WFL Right Lower Extremity: WFL Left Lower Extremity: WFL, with existing joints. Strength: Right Upper Extremity: Painful upon all attempt of resistance, so defer. Demonstrating at least 3/5 through wrist and elbow. 2/5 at least assumed at R shoulder, pain inhibitied. Left Upper Extremity: Grossly 4-/5 Right Lower Extremity: Grossly 4/5 Left Lower Extremity: Grossly 4/5 at hip Sensation: WNL Bed Mobility/Transfers: Supine-sit: Min A Sit-stand: CGA Stand-sit: CGA Bed-Chair: CGA Gait: Assistive Device: No AD Weight bearing: Full R Assist: CGA Distance: Stand pivot transfer bed>commode, commode>wheelchair, wheelchair>chair Deviation: L UE pain Balance: Static Sitting: Fair Dynamic Sitting: Poor Static Standing: Poor Dynamic Standing:Poor Special Tests: Mobility Limitations Standardized Measure [facility] AM-PAC 6 clicks Basic Mobility Inpatient Short Form: 72% disability Assessment: Patient is a 78 year old female referred to physical therapy services for maintainance and improvement of transfers, while being treated for Non-ST elevation RI (NSTEMI), UTI (urinary tract infection), and resulting encephelopathy, on top of multiple chronic comorbidities, most remarkably R shoulder OA and L BKA contributing to trasnfer difficulties. She is suffering acute on chronic R shoulder pain following recent fall, making her already difficult transfers, that much more challenging, as she is dependent on her UE's with use of walker for transfers. Impairment level findings: 1. Limited R shoulder mobility, strength, and pain 2. Poor balance/stability 3. Gross weakness Impairments are contributing to the following functional limitations: 1. AMPAC score of 72% disabiltiy 2. Requires assist with transfers, beyond her premorbid level of function Goals: Goals X1 week 1. Supine-Sit close supervision NOT MET 2. Sit-Supine close supervision NOT MET 3. Sit-Stand CGx1, with walker NOT MET 4. Stand-Sit CG x1, with walker NOT MET 5. Bed-Chair stand pivot transfer, with walker, CG x 1 MET 6. Chair-Bed stand pivor transfer, with walker, CG x 1 MET 7. Independent with home exercise program NOT MET 8. Balance Fair static and dynamic, with standing and sitting activities NOT MET DISCHARGE RECOMMENDATIONS: Home with family support and home health PT and OT services to address remaining functional mobility impairments, perform home safety evaluation, and facilitate a smooth transition to home. TREATMENT CODE/TIME: 64844, 30 minutes Thank you for this referral. Alexia Osuna, PT, DPT, CLT [facility]
== END 2019-01-13 16:05 | disposition home health service (06) | DRG 280 ==
LOC: ER 21:13 → ICU 22:13 → MS 01-10 15:23
PROVIDERS: Admitting Provider Family Medicine; Emergency Provider Nurse Practitioner Family; PCP Internal Medicine; Visit Provider Family Medicine
DX: I21.4 Non-ST elevation (NSTEMI) myocardial infarction (principal); G93.41 Metabolic encephalopathy; N39.0 Urinary tract infection, site not specified; R44.3 Hallucinations, unspecified; R00.1 Bradycardia, unspecified; M19.011 Primary osteoarthritis, right shoulder; K59.00 Constipation, unspecified; Z89.512 Acquired absence of left leg below knee; G89.29 Other chronic pain; Z79.891 Long term (current) use of opiate analgesic; E87.6 Hypokalemia; I10 Essential (primary) hypertension; T40.4X5A Adverse effect of other synthetic narcotics, initial encounter; Z79.01 Long term (current) use of anticoagulants
CPT/HCPCS: 36415; 36416; 78452; 80048; 80053; 82962; 83690; 85027; 93005; 93016; 93018; 96361; 96365; 96375; 97162; 97166; 97530; 99220; 99232; 99233; 99239; 99285; 70450; 71046; 74176; 81003; 81015; 83735; 84443; 84484; 85025; 85610; 85730; 93010; 93017; G0378; J0696; J1650; J2785; J3490; J8597

== ENCOUNTER 2019-02-03 11:25 | Inpatient (IN) | payer MEDICARE, MEDICAID, SELFPAY ==
[2019-02-03] VITALS (77 sets, daily range): BP systolic 91–162; BP diastolic 45–113; PULSE 61–131; RESP 12–35; TEMP 35.6–36.8; O2SAT 71–100
[2019-02-03 11:54] LABS: Abs Immature Grans 0.03 k/cumm (0.0-0.09); Absolute Basophil Count 0.02 k/cumm (0.0-0.2); Absolute Eosinophil Count 0.13 k/cumm (0.0-0.7); Absolute Monocyte Count 0.83 k/cumm (0.11-0.7); Basophils % 0.2; Eosinophils % 1.2; HCT 32.5 % (36.0-46.0); HGB 9.8 g/dL (12.0-15.5); Immature Grans % 0.3; Lymphocytes % 12.5; Mean Corp. HGB Concentration 30.2 g/dL (32.0-36.0); Mean Corpuscular Hemoglobin 27.5 pg (27.0-33.0); Mean Corpuscular Volume 91.3 fL (80-95); Mean Platelet Volume 10.1 fL (8.0-11.0); Monocytes % 7.4; Neutrophils % 78.4; Platelet Count 389 x1000/uL (130-400); RBC 3.56 m/cumm (4.00-5.20); RBC Distribution Width 17.6 % (11.7-14.6); White Blood Cell Count 11.16 k/cumm (4.4-10.8)
[2019-02-03 12:04] LABS: Absolute Neutrophil Count 8.75 k/cumm (1.2-6.7)
[2019-02-03 12:05] LABS: AST 14 U/L (15-37); Albumin 2.2 g/dL (3.4-5.0); Alkaline Phosphatase 102 U/L (46-116); Anion Gap 7.5 mmol/L (3-11); BUN 22 mg/dL (7-18); Bilirubin, Total 0.6 mg/dL (0.2-1.0); CO2 31.5 mmol/L (21.0-32.0); CREATININE 1.19 mg/dL (0.55-1.02); Calcium 10.3 mg/dL (8.5-10.1); Chloride 102 mmol/L (98-107); Estimated GFR 43.64 (mL/min/1.73m2); Glucose 123 mg/dL (70-100); Sodium 141 mmol/L (136-145); Total Protein 5.5 g/dL (6.4-8.2); Troponin I 0.02 ng/mL (0.00-0.06)
[2019-02-03 12:07] LABS: ALT < 6 U/L (12-78)
--- NOTE | 2019-02-03 12:10 | W.ED.GENAD ---
Discharge Plan Disposition Patient Disposition: [facility] INPATIENT Condition: Serious Discharge Details Chief Complaint: Chest Pain Clinical Impression: Acute upper GI bleed, Chest pain Admit Date/Time: 02/03/19 13:42 Admit Provider: Miya West Attending Provider: Miya West Primary Care Provider: Randal Sainz ED Provider: Gio Gibson Discharge Data Discharge Date/Time-TO BE ENTERED AT DEPARTURE: 02/03/19 13:11 Medical Decision Making This is an 78-year-old female with a past medical history of previous GI bleeds, cardiac disease, who is not currently on blood thinners who contacted EMS for evaluation of chest pain and epigastric pain for the last 2-3 days, it worsened this morning. She had no complaints of vomiting or hematemesis. Within 3 minutes of her arrival here in the ED she had a notable episode of hematemesis with bright red blood. The patient's clinical picture quickly changed, 2 large-bore IVs were established bilaterally, she was typed and crossed, order was placed for 2 units of PRBCs, octreotide, Rocephin, and Protonix were all started, And surgery was contacted. Patient was notably tachycardic, but blood pressure was stable. I discussed the case with Dr. Weinberg, we did discuss potential imaging, and she recommended immediate transfer to the OR for endoscopy. Transfer transferred to the OR for diagnostic and therapeutic EGD. I have extensively reviewed the treatment plan with the patient. I have addressed all patient concerns at this time. I have also discussed the plan with the admitting physician and they agree with the current assessment and plan and have agreed to assume responsibility for the patient. All parties demonstrate verbal understanding and agreement with our assessment and plan at this time. EKG 11: 30 Rate 121, QTc 443, atrial fibrillation, no significant ST elevations or depressions, no T wave inversions, no Q waves. HPI General Date/Time Provider Initiated Documentation: 02/03/19 11:27. HPI Narrative: This is an 78-year-old female with a past medical history of DVT/PE, previous GI bleed, not currently on anticoagulation, notable cardiac history, mild dementia, who presents today for evaluation of chest pain per EMS the patient states that for the last 2-3 days she has had mild left-sided chest pain, is notably worse this morning. She has had some nausea, but denies any vomiting, diarrhea, hematochezia, or other complaints. Immediately upon EMS arrival the patient immediately had a notable amount of hematemesis in front of us. Which was new for her. The patient is a notably poor historian. The patient has no other complaints at this time. Related Data Home Medications Medication Instructions Recorded Confirmed ropinirole 1 mg PO HS #60 tab 04/10/13 02/03/19 gabapentin 400 - 800 mg PO BID 01/27/15 02/03/19 Stool Softener 1 cap PO BID PRN PRN #0 05/02/15 02/03/19 acetaminophen 650 mg PO Q4H PRN 08/15/18 02/03/19 bisacodyl 1 ea [place] DIRECTED 08/15/18 02/03/19 polyethylene glycol 3350 17 g PO QAM 08/15/18 02/03/19 hydrocodone-acetaminophen 1 tab PO TID 01/09/19 02/03/19 lisinopril 20 mg PO DAILY 01/09/19 02/03/19 loperamide 2 mg PO PRN PRN 01/09/19 02/03/19 aspirin 81 mg PO DAILY #100 tab 01/13/19 02/03/19 atorvastatin [Lipitor] 40 mg PO DAILY #30 tab 01/13/19 02/03/19 lidocaine [Lidoderm] 2 patch TOPICAL Q24H #60 ea 01/13/19 02/03/19 naproxen sodium [Aleve] 220 mg PO BID PRN 02/03/19 02/03/19 ondansetron HCl [Zofran] 4 mg PO TID PRN 02/03/19 02/03/19 vitamin [id number] acid 1 tab PO DAILY 02/03/19 02/03/19 Previous Rx's Medication Instructions Recorded ropinirole 1 mg PO HS #60 tab 04/10/13 Stool Softener 1 cap PO BID PRN PRN #0 05/02/15 aspirin 81 mg PO DAILY #100 tab 01/13/19 atorvastatin [Lipitor] 40 mg PO DAILY #30 tab 01/13/19 lidocaine [Lidoderm] 2 patch TOPICAL Q24H #60 ea 01/13/19 Allergies Allergy/AdvReac Type Severity Reaction Status Date / Time Sulfa (Sulfonamide Allergy Intermediate Contraindic Unverified 02/03/19 12:38 Antibiotics) ated metoclopramide HCl AdvReac Mild Diarrhea Unverified 02/03/19 12:38 [From Reglan] General Stated Complaint: Chest Pain ALEJANDRA: 2 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) Polymyalgia rheumatica (Chronic) Osteoarthritis of ankle (Chronic) Migraine (Chronic) Hypercholesterolemia (Chronic) Restless legs (Chronic) History of surgery (Chronic) Hx of deep vein thrombosis and pulmonary emboli 2006 (Chronic) Chronic anticoagulation (Chronic) Essential hypertension (Chronic) History of peptic ulcer disease (Chronic) 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), ankle and foot (Chronic) Venous stasis of lower extremity (Chronic) H/O: GI bleed (Chronic) H/O: CVA (cerebrovascular accident) (Chronic) Congenital deformities of feet (Chronic) CHF (congestive heart failure) (Chronic) History of left below knee amputation (Chronic) Presence of IVC filter (Chronic) Chronic congestive heart failure Essential hypertension 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 3.ENT: Atraumatic external nose and ears. Moist MM. Neck: Symmetric, trachea midline, No thyromegaly. Actively vomiting bright red blood 4.CVS: +S1/S2, No murmurs or gallops. Peripheral pulses 2+ and equal in all extremities. Brisk capillary refill in all extremities. 5.RESP: Unlabored respiratory effort. Clear to auscultation bilaterally. No wheezes rales or rhonchi 6.GI: Soft, Nondistended, No hepatosplenomegaly. No guarding or rebound. Minimal tenderness throughout. 7.MSK: Normocephalic/Atraumatic, Extremities w/o deformity or ttp No cyanosis or clubbing, Normal movement of all extremities 8.Skin: Warm, Dry. No rashes or lesions. 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 Sensation grossly intact, no focal neurologic deficits. 10.Psych: (AAO) x3. Slightly confused otherwise. Course Vital Signs Temperature 36.6 C 02/03/19 11:24 Pulse 131 H 02/03/19 11:24 Respiratory Rate 35 H 02/03/19 11:24 Blood Pressure 162/78 H 02/03/19 11:24 Pulse Oximetry 96 02/03/19 11:24 Temperature 36.6 C 02/03/19 11:24 Temperature Source Skin 02/03/19 11:24 Pulse 131 H 02/03/19 11:24 Respiratory Rate 35 H 02/03/19 11:24 Respiratory Effort Non-Labored 02/03/19 11:24 Blood Pressure 162/78 H 02/03/19 11:24 Blood Pressure Position Supine 02/03/19 11:24 Pulse Oximetry 96 02/03/19 11:24 Oxygen Delivery Method Room Air 02/03/19 11:24 Oxygen Flow Rate 0 02/03/19 11:24 Lab/Test Results Lab/Test Results: Laboratory Tests Range/Units 02/03/19 02/03/19 11:35 11:35 WBC (4.4-10.8) k/cumm 11.16 H RBC (4.00-5.20) m/cumm 3.56 L Hgb (12.0-15.5) g/dL 9.8 L Hct (36.0-46.0) % 32.5 L MCV (80-95) fL 91.3 MCH (27.0-33.0) pg 27.5 MCHC (32.0-36.0) g/dL 30.2 L RDW (11.7-14.6) % 17.6 H Plt Count (130-400) x1000/uL 389 D MPV (8.0-11.0) fL 10.1 Immature Gran % 0.3 Neutrophils % 78.4 Lymphocytes % 12.5 Monocytes % 7.4 Eosinophils % 1.2 Basophils % 0.2 Absolute Neutrophils (1.2-6.7) k/cumm 8.75 H Absolute Lymphocytes (1.2-3.4) k/cumm 1.40 Absolute Monocytes (0.11-0.7) k/cumm 0.83 H Absolute Eosinophils (0.0-0.7) k/cumm 0.13 Absolute Basophils (0.0-0.2) k/cumm 0.02 Sodium (136-145) mmol/L 141 Potassium (3.5-5.1) mmol/L 4.0 Chloride (98-107) mmol/L 102 Carbon Dioxide (21.0-32.0) mmol/L 31.5 Anion Gap (3-11) mmol/L 7.5 BUN (7-18) mg/dL 22 H Creatinine (0.55-1.02) mg/dL 1.19 H Estimated GFR/1.73 m2 (mL/min/1.73m2) 43.64 Glucose (70-100) mg/dL 123 H Calcium (8.5-10.1) mg/dL 10.3 H Total Bilirubin (0.2-1.0) mg/dL 0.6 AST (15-37) U/L 14 L ALT (12-78) U/L < 6 L Alkaline Phosphatase (46-116) U/L 102 Troponin I (0.00-0.06) ng/mL 0.02 Total Protein (6.4-8.2) g/dL 5.5 L Albumin (3.4-5.0) g/dL 2.2 L
[2019-02-03 12:11] LABS: Anisocytosis 1+; Diff Comment RBC Morph Reviewed
[2019-02-03 12:12] LABS: Hypochromasia 1+; Polychromasia Present
[2019-02-03] MEDS: Normal Saline 1,000 ML 1000 ML IV (12:15)
[2019-02-03] MEDS: cefTRIAXone 2 GM/50 ML BAG IVPB (12:15)
[2019-02-03 12:16] LABS: INR 1.2 (0.9-1.1); PTT Activated 25.8 sec (21.0-31.4); Prothrombin Time 11.7 sec (9.3-11.0)
[2019-02-03] MEDS: Pantoprazole 40 MG VIAL IVP (12:16)
--- NOTE | 2019-02-03 12:46 | W.PM.HP.N ---
Date of service: 02/03/19 Time of Service: 12:47 Assessment and Plan (1) Upper GI bleeding: Start date: 02/03/19 Current visit: Yes Status: Acute acute onset of epigastric pain accompanied by vomting BRB. pt was given rocephin/protonix/octreotide in the ED. Pt is typed and crossed and will start blood. has x2 IV's and will place carmichael. She will go for emergent EGD. Further recommendations based on findings at EGD. 60 mins spent in critical care time preOp History of Present Illness pt is a very poor historian and it is difficult to get any info from her. She does't know what meds she was on. She doesn't smoke. caffeine use. She was suppose to be on baby ASA. It is unclear if she is still on the elequis. She says she has had stomach problems in the past and she did have surgery for stomach problems in the past. She has a midline laparotomy scar. old notes were reviewed and she was admitted for GI bleed in past and elequis was stopped at that time. Narrative: pt came into ED c/o chest pain. She has a long standing hx of DVT?PE. also cardiac. while she was in ED vomting lg amount of BRB. She was in hosp on 01/14 and had elevated trop. unclear if this ws new NE or old- hosp seemed to favor old infarct. She was on elequis- but this was stopped prior to d/c home. SHe doesn't know any meds she is taking. She can't give any hx. c/o stomach pain. but not peritonitis. b 's. hgb 9.8 Pt ws given IV PPI will be taken to endo for emergent EGD risk: bleeding infection/ perforation/ aspiration/ poss laparotomy. Review of Systems Review of Systems pt is extremely poor historian and can't give any information. 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), ankle and foot (Chronic) Venous stasis of lower extremity (Chronic) H/O: GI bleed (Chronic) H/O: CVA (cerebrovascular accident) (Chronic) Congenital deformities of feet (Chronic) CHF (congestive heart failure) (Chronic) History of left below knee amputation (Chronic) Presence of IVC filter (Chronic) Chronic congestive heart failure Essential hypertension 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 Mixed hyperlipidemia Morbid obesity Personal history of pulmonary embolism Polymyalgia rheumatica Restless legs Surgical History Cholecystectomy Hernia Repair, Incisional Repair of umbilical hernia Social History Smoking/Tobacco Use Status: Never Drug use: Never Do you feel safe in your relationship?: Yes Meds Home Medications Medication Instructions Recorded Confirmed Type ropinirole 1 mg PO HS #60 tab 04/10/13 02/03/19 Rx gabapentin 400 - 800 mg PO BID 01/27/15 02/03/19 History Stool Softener 1 cap PO BID PRN PRN #0 05/02/15 02/03/19 Rx acetaminophen 650 mg PO Q4H PRN 08/15/18 02/03/19 History bisacodyl 1 ea [place] DIRECTED 08/15/18 02/03/19 History polyethylene glycol 3350 17 g PO QAM 08/15/18 02/03/19 History hydrocodone-acetaminophen 1 tab PO TID 01/09/19 02/03/19 History lisinopril 20 mg PO DAILY 01/09/19 02/03/19 History loperamide 2 mg PO PRN PRN 01/09/19 02/03/19 History aspirin 81 mg PO DAILY #100 tab 01/13/19 02/03/19 Rx atorvastatin [Lipitor] 40 mg PO DAILY #30 tab 01/13/19 02/03/19 Rx lidocaine [Lidoderm] 2 patch TOPICAL Q24H #60 ea 01/13/19 02/03/19 Rx naproxen sodium [Aleve] 220 mg PO BID PRN 02/03/19 02/03/19 History ondansetron HCl [Zofran] 4 mg PO TID PRN 02/03/19 02/03/19 History vitamin M59-ymofh acid 1 tab PO DAILY 02/03/19 02/03/19 History Allergies Allergy/AdvReac Type Severity Reaction Status Date / Time Sulfa (Sulfonamide Allergy Intermediate Contraindic Unverified 02/03/19 12:38 Antibiotics) ated metoclopramide HCl AdvReac Mild Diarrhea Unverified 02/03/19 12:38 [From Reglan] Exam [facility] Head: normal to inspection Face and sinus: normal facial exam Mouth: oral mucosae normal and tongue normal Teeth and gingiva: poor dentition Other: pt c/o chest pain when she orig came into ED. She says it's chest pain , but clutches epigastric area Resp Effort & Inspection: normal respiratory effort Auscultation: clear to auscultation bilaterally, no rales, no rhonchi and no wheezes Cardio Rate: regular rate Rhythm: regular rhythm Other: 100/60's GI Palpation: soft, tender and No ascites Other: epigastric pain. no distention. no peritonitis. psot sx changes noted. no hernias Skin General skin exam: no rashes or lesions noted Extrem General: no clubbing, cyanosis or edema (on RLE.) Other: s/p BKA on the left Results Labs : 02/03/19 11:35 02/03/19 11:35 Laboratory Results - last 24 hr 02/03/19 02/03/19 02/03/19 11:35 11:35 11:35 WBC 11.16 H RBC 3.56 L Hgb 9.8 L Hct 32.5 L MCV 91.3 MCH 27.5 MCHC 30.2 L RDW 17.6 H Plt Count 389 D MPV 10.1 Immature Gran % 0.3 Neutrophils % 78.4 Lymphocytes % 12.5 Monocytes % 7.4 Eosinophils % 1.2 Basophils % 0.2 Absolute Neutrophils 8.75 H Absolute Lymphocytes 1.40 Absolute Monocytes 0.83 H Absolute Eosinophils 0.13 Absolute Basophils 0.02 Differential Comment Rbc morph reviewed RBC Morphology See below Polychromasia Present Hypochromasia 1+ Anisocytosis 1+ PT 11.7 H INR 1.2 H APTT 25.8 Sodium 141 Potassium 4.0 Chloride 102 Carbon Dioxide 31.5 Anion Gap 7.5 BUN 22 H Creatinine 1.19 H Estimated GFR/1.73 m2 43.64 Glucose 123 H Calcium 10.3 H Total Bilirubin 0.6 AST 14 L ALT < 6 L Alkaline Phosphatase 102 Troponin I 0.02 Total Protein 5.5 L Albumin 2.2 L Patient ABO/Rh Antibody Screen Crossmatch 02/03/19 11:35 WBC RBC Hgb Hct MCV MCH MCHC RDW Plt Count MPV Immature Gran % Neutrophils % Lymphocytes % Monocytes % Eosinophils % Basophils % Absolute Neutrophils Absolute Lymphocytes Absolute Monocytes Absolute Eosinophils Absolute Basophils Differential Comment RBC Morphology Polychromasia Hypochromasia Anisocytosis PT INR APTT Sodium Potassium Chloride Carbon Dioxide Anion Gap BUN Creatinine Estimated GFR/1.73 m2 Glucose Calcium Total Bilirubin AST ALT Alkaline Phosphatase Troponin I Total Protein Albumin Patient ABO/Rh A Positive Antibody Screen Negative Crossmatch See Detail Last Vital Signs Temp 36.6 C 02/03/19 11:24 Pulse 90 02/03/19 12:31 Resp 15 02/03/19 12:31 BP 135/108 H 02/03/19 12:31 Pulse Ox 100 02/03/19 12:20
[2019-02-03] MEDS: Lactated Ringers 1,000 ML 200 ML IV (13:06)
--- NOTE | 2019-02-03 13:26 | BOWEL_PTH ---
PATIENT: SAADIA GAN LOC: U#:[id number] AGE/SX: 78/F ROOM: 207 RE02/03/[address]: Miya West : 1940 BED: A DIS: 02/06/2019 SPEC #: [id number] RECD: 02/03/19 17:57 STATUS: VICTORINO REQ #: [id number] SARIAH: 02/03/19 13:[address]: Miya West DEPT: Surgical Specimen RECD BY: Nabila Genao ENTERED: 02/03/19 17:59 SP TYPE: Bowel OTHR DR: Randal Sainz Tissues: 1 - BIOPSY BOWEL Procedures: GROSS AND MICRO LEVEL 4 Comments: [id number]
--- NOTE | 2019-02-03 13:47 | W.PM.ENDDOP ---
Date of service: 02/03/19 Time of Service: 13:47 Endoscopy Report DATE OF PROCEDURE: 02/03/19 PRE-OP DIAGNOSIS: GI bleed POST-OP DIAGNOSIS: other (psot doudenal ulcer.) PROCEDURE: adherent clot. no active bleed covers lg surface area- cannot r/o malig. sm bx was done but may not be representational SURGEON: Miya West ANESTHESIA: GETA ESTIMATED BLOOD LOSS: 5 PATHOLOGY: other COMPLICATIONS: None DISPOSITION: PACU FINDINGS: see above PROCEDURE DESCRIPTION: dictated
[2019-02-03] MEDS: Ondansetron 4 MG/2 ML VIAL IVP (14:25)
[2019-02-03] MEDS: PANTOPRAZOLE 80 MG in Normal Saline 100 ML 10 MG IV ×2 (15:45→18:39)
[2019-02-03 16:19] LABS: HCT 32.9 % (36.0-46.0); HGB 10.5 g/dL (12.0-15.5); Mean Corp. HGB Concentration 31.9 g/dL (32.0-36.0); Mean Corpuscular Hemoglobin 29.2 pg (27.0-33.0); Mean Corpuscular Volume 91.4 fL (80-95); Mean Platelet Volume 9.9 fL (8.0-11.0); Platelet Count 274 x1000/uL (130-400); RBC Distribution Width 16.6 % (11.7-14.6); White Blood Cell Count 15.03 k/cumm (4.4-10.8)
--- NOTE | 2019-02-03 17:32 | ROE_ITS ---
DATE OF PROCEDURE: February 03, 2019 PREOPERATIVE DIAGNOSIS: GI bleed. POSTOPERATIVE DIAGNOSIS: Posterior duodenal ulcer. PROCEDURE: EGD and biopsies. SURGEON: Miya West D.O. ANESTHESIA: General. ESTIMATED BLOOD LOSS: There is no EBL from the procedure loss but the patient has about 100 cc clot in the stomach that was evacuated. COMPLICATIONS: The patient tolerated the procedure well without complication. INDICATIONS: Mrs. Glover is an 78-year-old female who presented to the ER complaining of chest pain. Upon arrival she vomited bright red blood and her hemoglobin was found to be 9.8. Her past medical history was very inconsistent and she is a very poor historian. There is a question if she is on Eliquis. There is a question if she is on aspirin. There is a question if she has had prior Informed consent is obtained, explaining the risks and benefits of the procedure including, but not limited to, bleeding, infection, perforation, aspiration, need for laparostomy for emergent bleeding control, and complications from the anesthesia. PROCEDURE: The patient was brought to the operating suite and placed in supine position. Anesthesia was then administered per the Department of Anesthesia. A previously lubricated Olympus scope was inserted in the oropharynx and passed down to the esophagus. The stomach was reached at 38 cm. There were signs of old clot and old blood in the stomach. There was no hiatal hernia. The esophagus showed no esophageal varices, erosions, or diverticular stricture. The pylorus was patent. Upon entering the pylorus she did have a large adhered clot in the first portion of the duodenum. I am able to work past this easily and into the third and fourth portions of the duodenum which showed old blot and bile. The clot was irrigated. It was adherent; it did not come off. It appeared to be a very large ulcer with adherent clot. There was no visible vessel. There were no signs of active arterial bleed. There were signs of chronic ulceration at the rim. Biopsy was taken of the rim. The surrounding tissue is very hard adn woody. Given the size of the ulcer adn the fact there is no active bleeding- it was elected to not do any procedures on it. Th ulcer is so lg that you would not be able to get a clip across it. If she does start to bleed again- she would need to go to the OR for cntrol. Given her medical status- I dont' thinkshe would survive surgery. Although this may not be representational, there could be malignancy within this ulcer. The patient had had a recent CT scan in the last six months and we will reevaluate this to ascertain if there are any pancreatic/duodenal masses. Again, there was no bleeding with irrigation or biopsy. Ninety percent of the stomach was visualized. There was some adherent clot that could not be removed. There were no signs of any malignancy or masses. There were no signs of any gastritis or ulcers within the stomach. The insufflation was removed and the scope was then withdrawn. The patient tolerated the procedure well without complications and was transferred to the Recovery Room in stable condition. cc: Randal Sainz M.D.
--- NOTE | 2019-02-03 18:30 | MCONE_ITS ---
Date of service: 02/03/19 Time of Service: 18:27 Assessment and Plan (1) Upper GI bleeding: Current visit: Yes Status: Acute Appears to be a large duodenal ulcer, with signs of recent bleed. Agree with discontinuation of aspirin, initiation of Protonix gtt, and consideration for addition of Carafate when able to take p.o. intake. Continue IVF's, trend H/H, with low threshold for transfusion - if the patient is symptomatic with either continuation of chest pain or elevating troponins, would maintain a hemoglobin level greater than 10 for symptomatic anemia. Otherwise given her likely underlying CAD, if asymptomatic would maintain hemoglobin above 8. (2) CAD (coronary artery disease): Current visit: Yes Status: Chronic Likely CAD with nuclear stress test performed 01/12 showing a small and partially reversible defect involving the inferior lateral wall, suggesting likely small ischemia in the distribution of the left circumflex coronary artery. When able to take oral intake recommend optimization with reinitiation of high potency statin. Please notes that as per patient's discharge summary from earlier this month she was intolerant of beta-ramandeep therapy secondary to bradycardia - would avoid BB at this time if possible. Aspirin on hold as above. These note that the patient is currently experiencing chest pain - however, with a large duodenal on either an EGD this may actually be epigastric pain. However given her history we will check an EKG and cycle troponins. Unfortunately if the patient is experiencing an NSTEMI she cannot be anticoagulated. Recommendations for Hgb levels as noted above. Monitor closely. (3) DVT prophylaxis: Current visit: No Status: Acute SCDs, TEDs. History of Present Illness Chief Complaint: Chest Pain, Hematemesis Narrative: 77 year old female with a past medical history significant for prior GIB, admitted from [facility] Emergency Department on 02/03 with a complaint of chest pain, epigastric pain, and witnessed Hematemesis in the ED. Mrs. 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 She has a prior history of hemorrh agic CVA in 2014, HTN, mild dementia, DJD, and a left sided below the knee amputation. She was hospitalized here at [facility] for a GIB in August of 2018, for which she underwent treatment with a protonix drip, carafate, and discontinuation of her anticoagulation. Earlier this month she was hospitalized again for chest pain, and underwent a nuclear stress test that showed a small partially reversible defect involving the inferolateral sanchez (LVEF 52%), with decision to treat patient medically. She presented to the ED today with complaints of CP and epigastric pain for 2-3 days, considerably worsening this morning, and was then witnessed having a bout of hematemesis. She was admitted under surgical services and taken to the OR for an EGD, which showed evidence of a blood and clots in the stomach, as well as old blood and an adhered clot to a large appearing duodenal ulcer. No signs of active bleeding were noted. Given her prior history medicine is consulted for medical management of the patient's medical comorbidities. 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) Polymyalgia rheumatica (Chronic) Osteoarthritis of ankle (Chronic) Migraine (Chronic) Hypercholesterolemia (Chronic) Restless legs (Chronic) History of surgery (Chronic) Hx of deep vein thrombosis and pulmonary emboli 2005 (Chronic) Chronic anticoagulation (Chronic) Essential hypertension (Chronic) History of peptic ulcer disease (Chronic) 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), ankle and foot (Chronic) Venous stasis of lower extremity (Chronic) H/O: GI bleed (Chronic) H/O: CVA (cerebrovascular accident) (Chronic) Congenital deformities of feet (Chronic) CHF (congestive heart failure) (Chronic) History of left below knee amputation (Chronic) Presence of IVC filter (Chronic) Chronic congestive heart failure Essential hypertension 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 Mixed hyperlipidemia Morbid obesity Personal history of pulmonary embolism Polymyalgia rheumatica Restless legs Surgical History Cholecystectomy Hernia Repair, Incisional Repair of umbilical hernia Social History Smoking/Tobacco Use Status: Never Drug use: Never Do you feel safe in your relationship?: Yes Exam Narrative Exam Narrative: General: Patient appears comfortable, appears awake and alert, NAD. Mild pallor noted. Neck: Supple CV: Regular, nontachycardic, S1S2, 3/6 murmur LLSB. Pulmonary: Clear to auscultation bilaterally, no crackles, wheezing, or rhonchi on limited anterior and lateral exam. Abdomen: + Bowel Sounds, soft, nontender by examination, nondistended Vascular: No lower extremity edema in RLE. Left-sided BKA noted. Psych: Normal mood and affect. Results Last Vital Signs Temp 35.6 C L 02/03/19 17:12 Pulse 87 02/03/19 17:46 Resp 22 02/03/19 17:50 BP 123/82 02/03/19 17:46 Pulse Ox 96 02/03/19 17:12 Labs : 02/03/19 16:12 02/03/19 11:35 Laboratory Results - last 24 hr 02/03/19 02/03/19 02/03/19 11:35 11:35 11:35 WBC 11.16 H RBC 3.56 L Hgb 9.8 L Hct 32.5 L MCV 91.3 MCH 27.5 MCHC 30.2 L RDW 17.6 H Plt Count 389 D MPV 10.1 Immature Gran % 0.3 Neutrophils % 78.4 Lymphocytes % 12.5 Monocytes % 7.4 Eosinophils % 1.2 Basophils % 0.2 Absolute Neutrophils 8.75 H Absolute Lymphocytes 1.40 Absolute Monocytes 0.83 H Absolute Eosinophils 0.13 Absolute Basophils 0.02 Differential Comment Rbc morph reviewed RBC Morphology See below Polychromasia Present Hypochromasia 1+ Anisocytosis 1+ PT 11.7 H INR 1.2 H APTT 25.8 Sodium 141 Potassium 4.0 Chloride 102 Carbon Dioxide 31.5 Anion Gap 7.5 BUN 22 H Creatinine 1.19 H Estimated GFR/1.73 m2 43.64 Glucose 123 H Calcium 10.3 H Total Bilirubin 0.6 AST 14 L ALT < 6 L Alkaline Phosphatase 102 Troponin I 0.02 Total Protein 5.5 L Albumin 2.2 L Patient ABO/Rh Antibody Screen Crossmatch 02/03/19 02/03/19 02/03/19 11:35 12:43 13:45 WBC RBC Hgb Hct MCV MCH MCHC RDW Plt Count MPV Immature Gran % Neutrophils % Lymphocytes % Monocytes % Eosinophils % Basophils % Absolute Neutrophils Absolute Lymphocytes Absolute Monocytes Absolute Eosinophils Absolute Basophils Differential Comment RBC Morphology Polychromasia Hypochromasia Anisocytosis PT INR APTT Sodium Potassium Chloride Carbon Dioxide Anion Gap BUN Creatinine Estimated GFR/1.73 m2 Glucose Calcium Total Bilirubin AST ALT Alkaline Phosphatase Troponin I Cancelled Cancelled Total Protein Albumin Patient ABO/Rh A Positive Antibody Screen Negative Crossmatch See Detail 02/03/19 16:12 WBC 15.03 H D RBC 3.60 L Hgb 10.5 L Hct 32.9 L MCV 91.4 MCH 29.2 MCHC 31.9 L RDW 16.6 H Plt Count 274 D MPV 9.9 Immature Gran % Neutrophils % Lymphocytes % Monocytes % Eosinophils % Basophils % Absolute Neutrophils Absolute Lymphocytes Absolute Monocytes Absolute Eosinophils Absolute Basophils Differential Comment RBC Morphology Polychromasia Hypochromasia Anisocytosis PT INR APTT Sodium Potassium Chloride Carbon Dioxide Anion Gap BUN Creatinine Estimated GFR/1.73 m2 Glucose Calcium Total Bilirubin AST ALT Alkaline Phosphatase Troponin I Total Protein Albumin Patient ABO/Rh Antibody Screen Crossmatch
[2019-02-03] MEDS: Normal Saline Flush 10 ML SYR (18:46)
[2019-02-03] MEDS: Normal Saline 1,000 ML 100 ML IV (19:56)
[2019-02-04] VITALS (112 sets, daily range): BP systolic 95–139; BP diastolic 33–91; PULSE 60–104; RESP 7–28; TEMP 36.5–37.4; O2SAT 83–98
[2019-02-04 03:07] LABS: Troponin I 0.03 ng/mL (0.00-0.06)
[2019-02-04 03:10] LABS: HCT 30.4 % (36.0-46.0); HGB 9.5 g/dL (12.0-15.5)
[2019-02-04] MEDS: PANTOPRAZOLE 80 MG in Normal Saline 100 ML 10 MG IV ×3 (04:29→22:31)
[2019-02-04] MEDS: Normal Saline 1,000 ML 100 ML IV ×2 (05:26→22:28)
[2019-02-04 07:11] LABS: Abs Immature Grans 0.01 k/cumm (0.0-0.09); Absolute Eosinophil Count 0.03 k/cumm (0.0-0.7); Absolute Lymphocyte Count 0.89 k/cumm (1.2-3.4); Absolute Monocyte Count 0.82 k/cumm (0.11-0.7); Absolute Neutrophil Count 7.97 k/cumm (1.2-6.7); Eosinophils % 0.3; HCT 28.7 % (36.0-46.0); HGB 8.8 g/dL (12.0-15.5); Immature Grans % 0.1; Lymphocytes % 9.2; Mean Corp. HGB Concentration 30.7 g/dL (32.0-36.0); Mean Corpuscular Hemoglobin 28.1 pg (27.0-33.0); Mean Corpuscular Volume 91.7 fL (80-95); Mean Platelet Volume 10.5 fL (8.0-11.0); Monocytes % 8.4; Platelet Count 314 x1000/uL (130-400); RBC 3.13 m/cumm (4.00-5.20); RBC Distribution Width 16.7 % (11.7-14.6); White Blood Cell Count 9.72 k/cumm (4.4-10.8)
[2019-02-04 07:25] LABS: AST 17 U/L (15-37); Albumin 1.9 g/dL (3.4-5.0); Alkaline Phosphatase 78 U/L (46-116); Anion Gap 6.4 mmol/L (3-11); BUN 39 mg/dL (7-18); Bilirubin, Total 0.5 mg/dL (0.2-1.0); CO2 28.6 mmol/L (21.0-32.0); CREATININE 1.14 mg/dL (0.55-1.02); Calcium 8.5 mg/dL (8.5-10.1); Chloride 107 mmol/L (98-107); Estimated GFR 45.86 (mL/min/1.73m2); Glucose 125 mg/dL (70-100); Potassium 4.5 mmol/L (3.5-5.1); Sodium 142 mmol/L (136-145); Total Protein 4.9 g/dL (6.4-8.2)
[2019-02-04 07:27] LABS: Prothrombin Time 12.5 sec (9.3-11.0)
[2019-02-04 07:29] LABS: INR 1.2 (0.9-1.1)
[2019-02-04 07:38] LABS: ALT < 6 U/L (12-78)
--- NOTE | 2019-02-04 09:56 | PDOC.CMIN ---
- If Service Date Differs Date of service: 02/04/19 Time of Service: 09:56 Care Management Initial Assess REASON FOR HOSPITALIZATION:: GI bleed PAST MEDICAL HISTORY/PAST SURGICAL HISTORY:: Medical: CVA, chronic anticoagulation for prior DVT and PE, chronic neck pain, HTN, H/O peptic ulcer disease, DJD knees and ankles, congenital deformity philomena feet and ankles, H/O LE cellulitis, polymyalgia rheumatica, chronic venous stasis, H/O migraine headaches, obesity, hypercholesterolemia, restless leg syndrome, H/O rectal fissure bleed, CHF. Surgical: left below the knee amputation, cholecystectomy, IVC filter placement, ovarian cyst drainage, rectal fissure repair, sigmoid hemicolectomy and diverting colostomy, reversal of colostomy, ventral hernia repair. PREVIOUS FUNCTIONAL STATUS/SOCIAL/FAMILY SUPPORTS:: Fay lives with her spouse Johnny and her son Cali. She has home health services in the community. CURRENT FUNCTIONAL STATUS:: Fay is unable to engage in assessment. She states she is having rectal pain that will not let up. She feels that she has to have a bowel movement constantly. CM reported patients discomfort to the primary nurse. Fay does report that she has not been doing well at home. She is unable to share details at this time. CM will contact home health to follow up home situation. ADVANCE DIRECTIVES:: On file at [facility] Has patient been provided with information about the portal?: No Did the patient sign up for the portal?: No CODE STATUS:: DNR/DNI INSURANCE COVERAGE / FINANCIAL ISSUES:: Medicare, Medicaid CURRENT HOME/COMMUNITY SERVICES/EQUIPMENT:: Home health nursing, PT/OT, [facility], modular home crew member two times a week and her CM is Rehana Hearn. Per home health she was being discharged from PT and had met her goals. She also has a cane, walker, ramp, raised toilet seat, hand shower, handrails, w/c at home. PRIMARY CARE PHYSICIAN:: POTENTIAL DISCHARGE NEEDS:: Follow up appointment with primary care and possible referral to SNF PATIENT/FAMILY EDUCATION NEEDS:: Discharge education, limitations and follow up plan of care including ANTICIPATED BARRIERS TO DISCHARGE:: Potential referral to SNF facility for short term rehab prior to returning home wt family and [employer] supports. TRANSPORTATION:: Pending discharge disposition. PLAN:: Fay remains acute today she was unable to particpate in assessment. She remians ICU level of care. CM contacted home health care and reviewed events prior to admission. Request from provider to discuss rehab options for patient related to acute hospitalization. CM was unable to review with patient today due to her mentation will revisit with patient tommorow.
--- NOTE | 2019-02-04 10:12 | PGE_ITS ---
Date of Service Date of service: 02/04/19 Time of Service: 10:02 Assessment and Plan (1) Duodenal ulcer with hemorrhage: Current visit: Yes Status: Acute stable slow drift in hgb- will transfuse to keep above 9. transfuse one unit today adn IV iron. start cl liq and carfate start P.T. in am will prob require rehab hosp to management of cardiac. so far stable and no problems /stable. (2) Anemia due to acute blood loss: Current visit: Yes Status: Acute iv iron (3) CHF (congestive heart failure): Current visit: No Status: Chronic as above (4) Hemorrhagic stroke: Current visit: No Status: Chronic as above (5) DVT (deep venous thrombosis): Current visit: Yes Status: Chronic as above Subjective Interval history since last seen: most history taken from RN's. pt states she doesn't really have much appetite. she is tired. her bottom hurts- she has been have mult stools. no n/v. min abdominal pain. has not thrown up. she feels week. Exam HENCT Head: normal to inspection Ears: other (PAMUNKEY) Face and sinus: dry mucous membranes Teeth and gingiva: poor dentition Other: dpendant facial edema ad in eyelids Chest Chest: normal inspection of the chest Resp Effort & Inspection: normal respiratory effort and able to speak in complete sentences Auscultation: wheezes Other: wheezes in lower bases GI Inspection: scar and other (hernia noted on CT) Palpation: soft Auscultation: normal bowel sounds Skin Other: overall skin is very dry Extrem Other: no edema/cyanosis on remaining ext. stump intact Objective Objective Clinical Data: Abnormal lab results 02/03/19 02/03/19 02/03/19 Range/Units 11:35 11:35 11:35 WBC 11.16 H (4.4-10.8) k/cumm RBC 3.56 L (4.00-5.20) m/cumm Hgb 9.8 L (12.0-15.5) g/dL Hct 32.5 L (36.0-46.0) % MCHC 30.2 L (32.0-36.0) g/dL RDW 17.6 H (11.7-14.6) % Absolute Neutrophils 8.75 H (1.2-6.7) k/cumm Absolute Lymphocytes (1.2-3.4) k/cumm Absolute Monocytes 0.83 H (0.11-0.7) k/cumm PT 11.7 H (9.3-11.0) sec INR 1.2 H (0.9-1.1) BUN 22 H (7-18) mg/dL Creatinine 1.19 H (0.55-1.02) mg/dL Glucose 123 H (70-100) mg/dL Calcium 10.3 H (8.5-10.1) mg/dL AST 14 L (15-37) U/L ALT < 6 L (12-78) U/L Total Protein 5.5 L (6.4-8.2) g/dL Albumin 2.2 L (3.4-5.0) g/dL Crossmatch 02/03/19 02/03/19 02/03/19 Range/Units 11:35 16:12 21:10 WBC 15.03 H D (4.4-10.8) k/cumm RBC 3.60 L (4.00-5.20) m/cumm Hgb 10.5 L 9.5 L (12.0-15.5) g/dL Hct 32.9 L 30.4 L (36.0-46.0) % MCHC 31.9 L (32.0-36.0) g/dL RDW 16.6 H (11.7-14.6) % Absolute Neutrophils (1.2-6.7) k/cumm Absolute Lymphocytes (1.2-3.4) k/cumm Absolute Monocytes (0.11-0.7) k/cumm PT (9.3-11.0) sec INR (0.9-1.1) BUN (7-18) mg/dL Creatinine (0.55-1.02) mg/dL Glucose (70-100) mg/dL Calcium (8.5-10.1) mg/dL AST (15-37) U/L ALT (12-78) U/L Total Protein (6.4-8.2) g/dL Albumin (3.4-5.0) g/dL Crossmatch See Detail 02/04/19 02/04/19 02/04/19 Range/Units 06:25 06:25 06:25 WBC (4.4-10.8) k/cumm RBC 3.13 L (4.00-5.20) m/cumm Hgb 8.8 L (12.0-15.5) g/dL Hct 28.7 L (36.0-46.0) % MCHC 30.7 L (32.0-36.0) g/dL RDW 16.7 H (11.7-14.6) % Absolute Neutrophils 7.97 H (1.2-6.7) k/cumm Absolute Lymphocytes 0.89 L (1.2-3.4) k/cumm Absolute Monocytes 0.82 H (0.11-0.7) k/cumm PT 12.5 H (9.3-11.0) sec INR 1.2 H (0.9-1.1) BUN 39 H D (7-18) mg/dL Creatinine 1.14 H (0.55-1.02) mg/dL Glucose 125 H (70-100) mg/dL Calcium (8.5-10.1) mg/dL AST (15-37) U/L ALT < 6 L (12-78) U/L Total Protein 4.9 L (6.4-8.2) g/dL Albumin 1.9 L (3.4-5.0) g/dL Crossmatch Vital Signs Temperature 37.4 C 02/04/19 08:27 Temperature Source Temporal Artery Scan 02/04/19 08:27 Pulse 89 02/04/19 05:27 Pulse 99 H 02/04/19 05:40 Respiratory Rate 18 02/04/19 05:40 Respiratory Effort Non-Labored 02/04/19 08:27 Respiratory Depth Shallow 02/04/19 08:27 Respiratory Pattern Normal 02/04/19 08:27 Blood Pressure 130/53 L 02/04/19 05:27 Blood Pressure Mean 71 02/04/19 05:27 Blood Pressure Position Supine 02/03/19 11:24 Pulse Oximetry 91 L 02/04/19 08:27 Respiratory End-tidal CO2 32 02/03/19 16:25 Oxygen Delivery Method Room Air 02/04/19 08:27 Oxygen Flow Rate 0 02/04/19 08:27 Pain Level 8 02/04/19 00:00 Intake & Output 02/03/19 02/03/19 02/04/19 11:59 23:59 11:59 Intake Total 2328 1046.666 / 1046.666 Output Total 500 / 500 Balance 2328 546.666 / 546.666 Weight 66.5 kg 66.5 kg 68.8 kg Intake: IV 2328 1046.666 / 1046.666 Output: Urine 500 / 500 Other: Urine Color Yellow Yellow Urine Appearance Clear Clear Stool Occult Blood Positive Positive Stool Size Small Small Stool Characteristics Soft Soft Emesis Description None Laboratory Results WBC 9.72 k/cumm (4.4-10.8) D 02/04/19 06:25 RBC 3.13 m/cumm (4.00-5.20) L 02/04/19 06:25 Hgb 8.8 g/dL (12.0-15.5) L 02/04/19 06:25 Hct 28.7 % (36.0-46.0) L 02/04/19 06:25 MCV 91.7 fL (80-95) 02/04/19 06:25 MCH 28.1 pg (27.0-33.0) 02/04/19 06:25 MCHC 30.7 g/dL (32.0-36.0) L 02/04/19 06:25 RDW 16.7 % (11.7-14.6) H 02/04/19 06:25 Plt Count 314 x1000/uL (130-400) 02/04/19 06:25 MPV 10.5 fL (8.0-11.0) 02/04/19 06:25 Immature Gran % 0.1 02/04/19 06:25 Neutrophils % 82.0 02/04/19 06:25 Lymphocytes % 9.2 02/04/19 06:25 Monocytes % 8.4 02/04/19 06:25 Eosinophils % 0.3 02/04/19 06:25 Basophils % 0.0 02/04/19 06:25 Absolute Neutrophils 7.97 k/cumm (1.2-6.7) H 02/04/19 06:25 Absolute Lymphocytes 0.89 k/cumm (1.2-3.4) L 02/04/19 06:25 Absolute Monocytes 0.82 k/cumm (0.11-0.7) H 02/04/19 06:25 Absolute Eosinophils 0.03 k/cumm (0.0-0.7) 02/04/19 06:25 Absolute Basophils 0.00 k/cumm (0.0-0.2) 02/04/19 06:25 Differential Comment Rbc morph reviewed 02/03/19 11:35 RBC Morphology See below 02/03/19 11:35 Polychromasia Present 02/03/19 11:35 Hypochromasia 1+ 02/03/19 11:35 Anisocytosis 1+ 02/03/19 11:35 PT 12.5 sec (9.3-11.0) H 02/04/19 06:25 INR 1.2 (0.9-1.1) H 02/04/19 06:25 APTT 25.8 sec (21.0-31.4) 02/03/19 11:35 Sodium 142 mmol/L (136-145) 02/04/19 06:25 Potassium 4.5 mmol/L (3.5-5.1) 02/04/19 06:25 Chloride 107 mmol/L (98-107) 02/04/19 06:25 Carbon Dioxide 28.6 mmol/L (21.0-32.0) 02/04/19 06:25 Anion Gap 6.4 mmol/L (3-11) 02/04/19 06:25 BUN 39 mg/dL (7-18) H D 02/04/19 06:25 Creatinine 1.14 mg/dL (0.55-1.02) H 02/04/19 06:25 Estimated GFR/1.73 m2 45.86 (mL/min/1.73m2) 02/04/19 06:25 Glucose 125 mg/dL (70-100) H 02/04/19 06:25 Calcium 8.5 mg/dL (8.5-10.1) 02/04/19 06:25 Total Bilirubin 0.5 mg/dL (0.2-1.0) 02/04/19 06:25 AST 17 U/L (15-37) 02/04/19 06:25 ALT < 6 U/L (12-78) L 02/04/19 06:25 Alkaline Phosphatase 78 U/L (46-116) 02/04/19 06:25 Troponin I 0.03 ng/mL (0.00-0.06) 02/03/19 21:10 Total Protein 4.9 g/dL (6.4-8.2) L 02/04/19 06:25 Albumin 1.9 g/dL (3.4-5.0) L 02/04/19 06:25 Patient ABO/Rh A Positive 02/03/19 11:35 Antibody Screen Negative 02/03/19 11:35 Crossmatch See Detail 02/03/19 11:35
--- NOTE | 2019-02-04 10:16 | INITIAL_ITS ---
- If Service Date Differs Date of service: 02/04/19 Time of Service: 09:56 Care Management Initial Assess REASON FOR HOSPITALIZATION:: GI bleed PAST MEDICAL HISTORY/PAST SURGICAL HISTORY:: Medical: CVA, chronic anticoagulation for prior DVT and PE, chronic neck pain, HTN, H/O peptic ulcer disease, DJD knees and ankles, congenital deformity philomena feet and ankles, H/O LE cellulitis, polymyalgia rheumatica, chronic venous stasis, H/O migraine headaches, obesity, hypercholesterolemia, restless leg syndrome, H/O rectal fissure bleed, CHF. Surgical: left below the knee amputation, cholecystectomy, IVC filter placement, ovarian cyst drainage, rectal fissure repair, sigmoid hemicolectomy and diverting colostomy, reversal of colostomy, ventral hernia repair. PREVIOUS FUNCTIONAL STATUS/SOCIAL/FAMILY SUPPORTS:: Fay lives with her spouse Johnny and her son Cali. She has home health services in the community. CURRENT FUNCTIONAL STATUS:: Fay is unable to engage in assessment. She states she is having rectal pain that will not let up. She feels that she has to have a bowel movement constantly. CM reported patients discomfort to the primary nurse. Fay does report that she has not been doing well at home. She is unable to share details at this time. CM will contact home health to follow up home situation. ADVANCE DIRECTIVES:: On file at [facility] Has patient been provided with information about the portal?: No Did the patient sign up for the portal?: No CODE STATUS:: DNR/DNI INSURANCE COVERAGE / FINANCIAL ISSUES:: Medicare, Medicaid CURRENT HOME/COMMUNITY SERVICES/EQUIPMENT:: Home health nursing, PT/OT, Choices for care, home service advisor two times a week and her CM is Rehana Hearn. Per home health she was being discharged from PT and had met her goals. She also has a cane, walker, ramp, raised toilet seat, hand shower, handrails, w/c at home. PRIMARY CARE PHYSICIAN:: POTENTIAL DISCHARGE NEEDS:: Follow up appointment with primary care and possible referral to SNF PATIENT/FAMILY EDUCATION NEEDS:: Discharge education, limitations and follow up plan of care including ANTICIPATED BARRIERS TO DISCHARGE:: Potential referral to SNF facility for short term rehab prior to returning home wt family and CFC supports. TRANSPORTATION:: Pending discharge disposition. PLAN:: Fay remains acute today she was unable to particpate in assessment. She remians ICU level of care. CM contacted home health care and reviewed events prior to admission. Request from provider to discuss rehab options for patient related to acute hospitalization. CM was unable to review with patient today due to her mentation will revisit with patient tommorow.
[2019-02-04] MEDS: diphenhydrAMINE 25 MG CAP PO ×2 (10:52→11:04)
[2019-02-04] MEDS: Acetaminophen 325 MG TAB 650 MG PO ×2 (10:53→11:03)
--- NOTE | 2019-02-04 10:55 | PHARADMIT ---
Addendum entered by Juan Mendoza III 02/05/19 12:17: Patient and family had meeting with provider to discuss her poor prognosis. he decision was made to move toward comfort measures and patient is being transferred tot the Med/Surg floor. Her Protonix drip remains in effect at this time. Original Note: Admission Pharmacy Clinical Review DUODENAL BLEEDING ULCER (per Endoscopy 02/03/19) Code Status DNR/DNI Current Weight 68.8 kg Renally Cleared and Narrow Therapeutic Index Meds CrCl~29.7ml/min QTc Value / Action Taken QTC 443 BP Control, Fever BP 130/53, Afebrile, pain 810 Electrolytes reviewed K+ 4.5 DVT Prophylaxis contraindicated at this time Opiate Usage / Scheduled Bowel Regimen Ordered MS IVP Plt/SCr for Heparin / Enoxaparin Plt 314 SCr 1.14 INR for Warfarin H/H stable, WBC/Bands H/H 8.8/28.7 WBC 9.72 Antibiotic appropriateness Ceftriaxone x1 in ED Cultures and Sensitivities Surgical ABX d/c within 24 hr DM control / Insulin Dosing BG 125 Heart Failure (Check EF%) (MOIRA's, B-Block, Diuretics) IV to PO Switch Home Meds Reviewed Home Meds Not Ordered NONE ORDERED at this time Comments stool heme positive, getting blood today, unsure how many units, to keep Hg above 9.0, followed by Iron Sucrose x1 Troponin inderteminate Protonix infusion going Surgical patient w/Hospitalist consult Chronic CHF, was inpatient last month for NSTEMI/UTI
[2019-02-04] MEDS: Sucralfate 1 GM TAB PO ×3 (13:14→22:28)
[2019-02-04] MEDS: Furosemide 20 MG/2 ML VIAL IVP (15:28)
[2019-02-04] MEDS: Normal Saline Flush 10 ML SYR ×2 (15:29→19:52)
--- NOTE | 2019-02-04 15:31 | PGE_ITS ---
Date of Service Date of service: 02/04/19 Time of Service: 15:30 Assessment and Plan (1) Upper GI bleeding: Current visit: Yes Status: Acute Appears to be a large duodenal ulcer, with signs of recent bleed. Agree with discontinuation of aspirin, initiation of Protonix gtt, and consideration for addition of Carafate when able to take p.o. intake. Continue IVF's, trend H/H, with low threshold for transfusion - if the patient is symptomatic would maintain a hemoglobin level greater than 10 for symptomatic anemia. Otherwise given her likely underlying CAD, if asymptomatic would maintain hemoglobin above 8. Current chest pain is clearly musculoskeletal, with EKG non-ischemic and cardiac biomarkers trended negative. (2) CAD (coronary artery disease): Current visit: Yes Status: Chronic Likely CAD with nuclear stress test performed 01/12 showing a small and partially reversible defect involving the inferior lateral wall, suggesting likely small ischemia in the distribution of the left circumflex coronary artery. When able to take oral intake recommend optimization with reinitiation of high potency statin. Please notes that as per patient's discharge summary from earlier this month she was intolerant of beta-ramandeep therapy secondary to br adycardia - would avoid BB at this time if possible. Aspirin on hold as above. Please note that the patient is currently experiencing chest pain - appears to be musculoskeletal by exam. EKG and troponins negative as above. (3) DVT prophylaxis: Current visit: No Status: Acute SCDs, TEDs. Subjective Interval history since last seen: 77 year old female with a past medical history significant for prior GIB's, admitted from [facility] Emergency Department on 02/03 with a complaint of chest pain, epigastric pain, and witnessed Hematemesis in the ED. Mrs. 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 She has a prior history of hemorrhagic CVA in 2014, HTN, mild dementia, DJD, and a left sided below the knee amputation. She was hospitalized here at [facility] for a GIB in August of 2018, for which she underwent treatment with a protonix drip, carafate, and discontinuation of her anticoagulation. Earlier this month she was hospitalized again for chest pain, and underwent an abnormal nuclear stress test that showed a small partially reversible defect involving the inferolateral sanchez (LVEF 52%), with decision to treat her medically. She presented to the ED on the day of admission with complaints of CP and epigastric pain for 2-3 days, considerably worsening on the morning of admission, and was then witnessed having a bout of hematemesis. She was admitted under surgical services and taken to the OR for an EGD, which showed evidence of a blood and clots in the stomach, as well as old blood and an adhered clot to a large appearing duodenal ulcer. No signs of active bleeding were noted. Given her prior history medicine was consulted for medical management of the patient's medical comorbidities. Despite transfusion Mrs. Mckeon Hgb has continued to drop slowly. She is hemodynamically stable, but remains confused which she has been in the past. Continued complaint of chest pain. No overnight events reported. Remains afebrile. Exam Narrative Exam Narrative: General: Patient appears comfortable, appears awake and alert, confused. NAD. Mild pallor again noted. Neck: Supple CV: Regular, nontachycardic, S1S2, 3/6 murmur LLSB. Pulmonary: Clear to auscultation bilaterally, no crackles, wheezing, or rhonchi on limited anterior and lateral exam. Abdomen: + Bowel Sounds, soft, nontender by examination, nondistended. No epigastric pain. Vascular: No lower extremity edema in RLE. Left-sided BKA noted. Musculoskeletal: Pain with palpation of anterior chest, at site of patient's chest pain. Psych: Normal mood and affect. Objective Objective Clinical Data: Abnormal lab results 02/03/19 02/03/19 02/03/19 Range/Units 11:35 16:12 21:10 WBC 15.03 H D (4.4-10.8) k/cumm RBC 3.60 L (4.00-5.20) m/cumm Hgb 10.5 L 9.5 L (12.0-15.5) g/dL Hct 32.9 L 30.4 L (36.0-46.0) % MCHC 31.9 L (32.0-36.0) g/dL RDW 16.6 H (11.7-14.6) % Absolute Neutrophils (1.2-6.7) k/cumm Absolute Lymphocytes (1.2-3.4) k/cumm Absolute Monocytes (0.11-0.7) k/cumm PT (9.3-11.0) sec INR (0.9-1.1) BUN (7-18) mg/dL Creatinine (0.55-1.02) mg/dL Glucose (70-100) mg/dL ALT (12-78) U/L Total Protein (6.4-8.2) g/dL Albumin (3.4-5.0) g/dL Crossmatch See Detail 02/04/19 02/04/19 02/04/19 Range/Units 06:25 06:25 06:25 WBC (4.4-10.8) k/cumm RBC 3.13 L (4.00-5.20) m/cumm Hgb 8.8 L (12.0-15.5) g/dL Hct 28.7 L (36.0-46.0) % MCHC 30.7 L (32.0-36.0) g/dL RDW 16.7 H (11.7-14.6) % Absolute Neutrophils 7.97 H (1.2-6.7) k/cumm Absolute Lymphocytes 0.89 L (1.2-3.4) k/cumm Absolute Monocytes 0.82 H (0.11-0.7) k/cumm PT 12.5 H (9.3-11.0) sec INR 1.2 H (0.9-1.1) BUN 39 H D (7-18) mg/dL Creatinine 1.14 H (0.55-1.02) mg/dL Glucose 125 H (70-100) mg/dL ALT < 6 L (12-78) U/L Total Protein 4.9 L (6.4-8.2) g/dL Albumin 1.9 L (3.4-5.0) g/dL Crossmatch Vital Signs Temperature 37.1 C 02/04/19 13:26 Temperature Source Temporal Artery Scan 02/04/19 11:47 Pulse 74 02/04/19 13:26 Pulse 75 02/04/19 13:01 Respiratory Rate 17 02/04/19 13:26 Respiratory Effort Non-Labored 02/04/19 08:27 Respiratory Depth Shallow 02/04/19 08:27 Respiratory Pattern Normal 02/04/19 08:27 Blood Pressure 107/37 L 02/04/19 13:26 Blood Pressure Mean 58 02/04/19 13:01 Blood Pressure Position Supine 02/04/19 11:47 Pulse Oximetry 93 L 02/04/19 13:26 Respiratory End-tidal CO2 32 02/03/19 16:25 Oxygen Delivery Method Room Air 02/04/19 12:26 Oxygen Flow Rate 0 02/04/19 12:26 Pain Level 8 02/04/19 11:47 Intake & Output 02/03/19 02/04/19 02/04/19 23:59 11:59 23:59 Intake Total 232 / 2329 1671.666 / 2184.166 512.5 / 2184.166 Output Total 500 / 1025 525 / 1025 Balance 2328 / 2328 1171.666 / 1159.166 -12.5 / 1159.166 Weight 66.5 kg 68.8 kg Intake: IV 2328 / 2328 1671.666 / 1759.166 87.5 / 1759.166 Oral 350 / 350 Blood Product 75 / 75 Rbc Leuko Reduced Unit 75 / 75 [id number] Output: Urine 500 / 1025 525 / 1025 Other: Urine Color Yellow Yellow Yellow Urine Appearance Clear Clear Clear Stool Occult Blood Positive Positive Positive Stool Size Small Small Small Stool Characteristics Soft Soft Soft Emesis Description None Laboratory Results WBC 9.72 k/cumm (4.4-10.8) D 02/04/19 06:25 RBC 3.13 m/cumm (4.00-5.20) L 02/04/19 06:25 Hgb 8.8 g/dL (12.0-15.5) L 02/04/19 06:25 Hct 28.7 % (36.0-46.0) L 02/04/19 06:25 MCV 91.7 fL (80-95) 02/04/19 06:25 MCH 28.1 pg (27.0-33.0) 02/04/19 06:25 MCHC 30.7 g/dL (32.0-36.0) L 02/04/19 06:25 RDW 16.7 % (11.7-14.6) H 02/04/19 06:25 Plt Count 314 x1000/uL (130-400) 02/04/19 06:25 MPV 10.5 fL (8.0-11.0) 02/04/19 06:25 Immature Gran % 0.1 02/04/19 06:25 Neutrophils % 82.0 02/04/19 06:25 Lymphocytes % 9.2 02/04/19 06:25 Monocytes % 8.4 02/04/19 06:25 Eosinophils % 0.3 02/04/19 06:25 Basophils % 0.0 02/04/19 06:25 Absolute Neutrophils 7.97 k/cumm (1.2-6.7) H 02/04/19 06:25 Absolute Lymphocytes 0.89 k/cumm (1.2-3.4) L 02/04/19 06:25 Absolute Monocytes 0.82 k/cumm (0.11-0.7) H 02/04/19 06:25 Absolute Eosinophils 0.03 k/cumm (0.0-0.7) 02/04/19 06:25 Absolute Basophils 0.00 k/cumm (0.0-0.2) 02/04/19 06:25 Differential Comment Rbc morph reviewed 02/03/19 11:35 RBC Morphology See below 02/03/19 11:35 Polychromasia Present 02/03/19 11:35 Hypochromasia 1+ 02/03/19 11:35 Anisocytosis 1+ 02/03/19 11:35 PT 12.5 sec (9.3-11.0) H 02/04/19 06:25 INR 1.2 (0.9-1.1) H 02/04/19 06:25 APTT 25.8 sec (21.0-31.4) 02/03/19 11:35 Sodium 142 mmol/L (136-145) 02/04/19 06:25 Potassium 4.5 mmol/L (3.5-5.1) 02/04/19 06:25 Chloride 107 mmol/L (98-107) 02/04/19 06:25 Carbon Dioxide 28.6 mmol/L (21.0-32.0) 02/04/19 06:25 Anion Gap 6.4 mmol/L (3-11) 02/04/19 06:25 BUN 39 mg/dL (7-18) H D 02/04/19 06:25 Creatinine 1.14 mg/dL (0.55-1.02) H 02/04/19 06:25 Estimated GFR/1.73 m2 45.86 (mL/min/1.73m2) 02/04/19 06:25 Glucose 125 mg/dL (70-100) H 02/04/19 06:25 Calcium 8.5 mg/dL (8.5-10.1) 02/04/19 06:25 Total Bilirubin 0.5 mg/dL (0.2-1.0) 02/04/19 06:25 AST 17 U/L (15-37) 02/04/19 06:25 ALT < 6 U/L (12-78) L 02/04/19 06:25 Alkaline Phosphatase 78 U/L (46-116) 02/04/19 06:25 Troponin I 0.03 ng/mL (0.00-0.06) 02/03/19 21:10 Total Protein 4.9 g/dL (6.4-8.2) L 02/04/19 06:25 Albumin 1.9 g/dL (3.4-5.0) L 02/04/19 06:25 Patient ABO/Rh A Positive 02/03/19 11:35 Antibody Screen Negative 02/03/19 11:35 Crossmatch See Detail 02/03/19 11:35
[2019-02-04 18:27] LABS: HCT 32.4 % (36.0-46.0); HGB 10.4 g/dL (12.0-15.5)
[2019-02-04 18:36] LABS: Magnesium 1.5 mg/dL (1.8-2.4)
[2019-02-05] VITALS (53 sets, daily range): BP systolic 65–145; BP diastolic 32–98; PULSE 25–187; RESP 0–31; TEMP 36.5; O2SAT 84–100
[2019-02-05] MEDS: MAGNESIUM SULFATE 2 GM/50 ML BAG IVPB ×2 (00:30→02:23)
[2019-02-05] MEDS: Normal Saline Flush 10 ML SYR IVP ×4 (00:31→22:11)
[2019-02-05 07:22] LABS: HCT 31.6 % (36.0-46.0); HGB 10.2 g/dL (12.0-15.5); Mean Corp. HGB Concentration 32.3 g/dL (32.0-36.0); Mean Corpuscular Hemoglobin 29.1 pg (27.0-33.0); Mean Platelet Volume 10.5 fL (8.0-11.0); Platelet Count 259 x1000/uL (130-400); RBC 3.51 m/cumm (4.00-5.20); RBC Distribution Width 16.7 % (11.7-14.6); White Blood Cell Count 10.25 k/cumm (4.4-10.8)
[2019-02-05 07:26] LABS: Magnesium 2.8 mg/dL (1.8-2.4)
--- NOTE | 2019-02-05 08:19 | W.PM.PROGNOT ---
Date of Service Date of service: 02/05/19 Time of Service: : Assessment and Plan (1) Anemia due to acute blood loss: Current visit: Yes Status: Acute pt having new cardiac event bp unstable hosp concerned that is we do pressers- this will decreased cardiac blood flow and make cardiac ischemia worse. pt too unstable for transport or intervention cardiology does not feel she is a candidate for interventions basically every intervention we could do medically- pt cannot tolerate at this time. family has been called in pt bp remains critically low prognosis is dire pt has expressed in the past and to nursing that she does not want any heroic interventions and she is DNR/DNI Son has a hard time accepting this and has told me he wants everything done. family meeting this am w/ Dr. Meier and her care team. >50% of the time spent with the patient today was spent in counseling regarding; medications, lifestyle modifications, wound care and/or coordinating care. 60 mins spent in critical care time today further direction of care per hosp. hopefully pt will be made comfort cares. (2) Duodenal ulcer with hemorrhage: Current visit: Yes Status: Acute Subjective Interval history since last seen: pt had cardiac event over night. currently c/o neck pain. stooling is less. not grossly bloody. pt blood pressure is in 60's adn can't keep it above 80's. confused. c/o pain all over. dr meier did d/w cards- they didn't really have any recommendations. we can't anticoag b/c of ulcer/bleeding. BP wont tolerate and pt has not tolerated B blockers in the past or nitro. she is too unstable for transport. cards have stated med management only in past and she is not a candidate for further stenting. currently she is in A fib. and BP is in 70's w/ fluids wide open and HR is in 100's. family is here nad willl have family meeting about how she wants to progress w/ cares. No signs of active bleeding that would be cuasing low BP. appears to be cardiac in nature Exam Narrative Exam Narrative: pt c/o pain everywhere. generalized edema. pale GI Other: soft no distention Skin Other: skin tears and third spacing of fluid dependantly Objective Objective Clinical Data: Abnormal lab results 02/03/19 02/04/19 02/04/19 Range/Units 11:35 18:15 18:15 RBC (4.00-5.20) m/cumm Hgb 10.4 L (12.0-15.5) g/dL Hct 32.4 L (36.0-46.0) % RDW (11.7-14.6) % Magnesium 1.5 L (1.8-2.4) mg/dL Crossmatch See Detail 02/05/19 02/05/19 Range/Units 06:25 06:25 RBC 3.51 L (4.00-5.20) m/cumm Hgb 10.2 L (12.0-15.5) g/dL Hct 31.6 L (36.0-46.0) % RDW 16.7 H (11.7-14.6) % Magnesium 2.8 H (1.8-2.4) mg/dL Crossmatch Vital Signs Temperature 36.5 C 02/05/19 04:02 Temperature Source Temporal Artery Scan 02/04/19 21:00 Pulse 88 02/05/19 08:00 Pulse 94 H 02/05/19 08:00 Respiratory Rate 20 02/05/19 08:00 Respiratory Effort Non-Labored 02/05/19 04:02 Respiratory Depth Shallow 02/05/19 04:02 Respiratory Pattern Normal 02/05/19 04:02 Blood Pressure 83/52 L 02/05/19 08:00 Blood Pressure Mean 59 02/05/19 08:00 Blood Pressure Position Supine 02/04/19 21:00 Pulse Oximetry 100 02/05/19 08:00 Respiratory End-tidal CO2 32 02/03/19 16:25 Oxygen Delivery Method Nasal Cannula 02/05/19 04:02 Oxygen Flow Rate 3 02/05/19 04:02 Pain Level 4 02/04/19 21:00 Intake & Output 02/04/19 02/04/19 02/05/19 11:59 23:59 11:59 Intake Total 1671.666 / 3011.999 1340.333 / 3011.999 Output Total 500 / 4100 3600 / 4100 2099 / 2099 Balance 1171.666 / -1088.001 -2259.667 / -1088.001 -2099 Weight 68.8 kg 61.7 kg Intake: IV 1671.666 / 2436.999 765.333 / 2436.999 Oral 500 / 500 Blood Product 75 / Rbc Leuko Reduced Unit 75 / [id number] Output: Urine 500 / 4100 3600 / 4100 2100 / 2100 Other: Urine Color Yellow Pale Yellow Yellow Urine Appearance Clear Clear Clear Comment carmichael intact and draining clear yellow urine. carmichael is patent and draining carmichael is patent and draining Stool Occult Blood Positive Positive Positive Stool Size Small Small Small Stool Characteristics Soft Soft Soft Formed Laboratory Results WBC 10.25 k/cumm (4.4-10.8) 02/05/19 06:25 RBC 3.51 m/cumm (4.00-5.20) L 02/05/19 06:25 Hgb 10.2 g/dL (12.0-15.5) L 02/05/19 06:25 Hct 31.6 % (36.0-46.0) L 02/05/19 06:25 MCV 90.0 fL (80-95) 02/05/19 06:25 MCH 29.1 pg (27.0-33.0) 02/05/19 06:25 MCHC 32.3 g/dL (32.0-36.0) 02/05/19 06:25 RDW 16.7 % (11.7-14.6) H 02/05/19 06:25 Plt Count 259 x1000/uL (130-400) 02/05/19 06:25 MPV 10.5 fL (8.0-11.0) 02/05/19 06:25 Immature Gran % 0.1 02/04/19 06:25 Neutrophils % 82.0 02/04/19 06:25 Lymphocytes % 9.2 02/04/19 06:25 Monocytes % 8.4 02/04/19 06:25 Eosinophils % 0.3 02/04/19 06:25 Basophils % 0.0 02/04/19 06:25 Absolute Neutrophils 7.97 k/cumm (1.2-6.7) H 02/04/19 06:25 Absolute Lymphocytes 0.89 k/cumm (1.2-3.4) L 02/04/19 06:25 Absolute Monocytes 0.82 k/cumm (0.11-0.7) H 02/04/19 06:25 Absolute Eosinophils 0.03 k/cumm (0.0-0.7) 02/04/19 06:25 Absolute Basophils 0.00 k/cumm (0.0-0.2) 02/04/19 06:25 Differential Comment Rbc morph reviewed 02/03/19 11:35 RBC Morphology See below 02/03/19 11:35 Polychromasia Present 02/03/19 11:35 Hypochromasia 1+ 02/03/19 11:35 Anisocytosis 1+ 02/03/19 11:35 PT 12.5 sec (9.3-11.0) H 02/04/19 06:25 INR 1.2 (0.9-1.1) H 02/04/19 06:25 APTT 25.8 sec (21.0-31.4) 02/03/19 11:35 Sodium 142 mmol/L (136-145) 02/04/19 06:25 Potassium 4.5 mmol/L (3.5-5.1) 02/04/19 06:25 Chloride 107 mmol/L (98-107) 02/04/19 06:25 Carbon Dioxide 28.6 mmol/L (21.0-32.0) 02/04/19 06:25 Anion Gap 6.4 mmol/L (3-11) 02/04/19 06:25 BUN 39 mg/dL (7-18) H D 02/04/19 06:25 Creatinine 1.14 mg/dL (0.55-1.02) H 02/04/19 06:25 Estimated GFR/1.73 m2 45.86 (mL/min/1.73m2) 02/04/19 06:25 Glucose 125 mg/dL (70-100) H 02/04/19 06:25 Calcium 8.5 mg/dL (8.5-10.1) 02/04/19 06:25 Magnesium 2.8 mg/dL (1.8-2.4) H 02/05/19 06:25 Total Bilirubin 0.5 mg/dL (0.2-1.0) 02/04/19 06:25 AST 17 U/L (15-37) 02/04/19 06:25 ALT < 6 U/L (12-78) L 02/04/19 06:25 Alkaline Phosphatase 78 U/L (46-116) 02/04/19 06:25 Troponin I 0.03 ng/mL (0.00-0.06) 02/03/19 21:10 Total Protein 4.9 g/dL (6.4-8.2) L 02/04/19 06:25 Albumin 1.9 g/dL (3.4-5.0) L 02/04/19 06:25 Patient ABO/Rh A Positive 02/03/19 11:35 Antibody Screen Negative 02/03/19 11:35 Crossmatch See Detail 02/03/19 11:35
[2019-02-05 08:21] LABS: Anion Gap 7.7 mmol/L (3-11); BUN 41 mg/dL (7-18); CO2 29.3 mmol/L (21.0-32.0); CREATININE 1.01 mg/dL (0.55-1.02); Calcium 8.1 mg/dL (8.5-10.1); Chloride 108 mmol/L (98-107); Estimated GFR 52.74 (mL/min/1.73m2); Glucose 77 mg/dL (70-100); Magnesium 2.8 mg/dL (1.8-2.4); Sodium 145 mmol/L (136-145)
[2019-02-05] MEDS: PANTOPRAZOLE 80 MG in Normal Saline 100 ML 10 MG IV (08:41)
[2019-02-05] MEDS: Normal Saline 1,000 ML 100 ML IV ×2 (08:42→08:47)
--- NOTE | 2019-02-05 10:25 | PDOC.CMPRO ---
- If Service Date Differs Date of service: 02/05/19 Time of Service: 10:25 Care Management Progress Note S/O: CM received notification this morning that Fay is not doing well and that family should be called in regarding direction of care. CM spoke with Fay's son Cali whom came in with Fay's [place]. Family meeting held with Cali Easley, Dr. Meier, Suzanne Kwan, RN, and this CM. Dr. Meier provided a medical update, and discussed options in regards to Fay's direction of care. Fay's advance directive and previous conversations with staff were discussed at length and it was determined by her family that she will transition to PHOTO PRODUCER at this time. Fay's and son requested that CM contact other family members. CM spoke with Avelina, Daughter, whom will be in, and states that she will contact their son Altaf. CM also spoke with Jaun whom is aware of the current status of Fay. A: 78 y/o female admitted 02/03/19 for GI Bleed. P: Fay has transitioned to PHOTO PRODUCER today. Her and son have been with her throughout the morning, and her other children are coming in to see her. CM to continue to offer support to Fay and her family during this time.
--- NOTE | 2019-02-05 11:30 | CMPROGNOTE_ITS ---
- If Service Date Differs Date of service: 02/05/19 Time of Service: 10:25 Care Management Progress Note S/O: CM received notification this morning that Fay is not doing well and that family should be called in regarding direction of care. CM spoke with Fay's son Cali whom came in with Fay's [place]. Family meeting held with Clai Easley, Dr. Meier, Suzanne Kwan, RN, and this CM. Dr. Meier provided a medical update, and discussed options in regards to Fay's direction of care. Fay's advance directive and previous conversations with staff were discussed at length and it was determined by her family that she will transition to TROUBLE LOCATER at this time. Fay's and son requested that CM contact other family members. CM spoke with Avelina, Daughter, whom will be in, and states that she will contact their son Altaf. CM also spoke with Jaun whom is aware of the current status of Fay. A: 78 y/o female admitted 02/03/19 for GI Bleed. P: Fay has transitioned to TROUBLE LOCATER today. Her and son have been with her throughout the morning, and her other children are coming in to see her. CM to continue to offer support to Fay and her family during this time.
--- NOTE | 2019-02-05 11:42 | W.PM.PROGNOT ---
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 However, she spontaneously went into a rhythm consistent with SVTs, then Afib with RVR. Considered administration of Adenosine while patient was initially in a regular narrow complex tachycardia, but her rhythm changed to AFib. Patient's Afib was difficult to control in setting of her history of bradycardia with godfrey agents and her episode of bradycardia this morning - Digoxin not considered as this would likely cause or prolong bradycardia as well. Cardioversion and pacing was considered but she is DNR/DNI. Very likely not a candidate for PPM due to her significant comorbidities. Case was discussed with Cardiology at [facility] who agreed with the assessment. Mrs. Glover converted to a sinus rhythm. Her hypotension was managed with fluid boluses and IV Normal Saline. Given her overall poor prognosis family meeting was held with her son and , and the entirety of her care was reviewed. Given her relatively poor prognosis decision was made to alter the patient's care towards Comfort Measures - confirmed as appropriate wishes both earlier and later by patient herself. She was transitioned to CAR MOVER measures, and will be moved to [facility] for a private room. (2) Upper GI bleeding: Current visit: Yes Status: Acute Large duodenal ulcer by EGD. For her comfort she was maintained on a Protonix gtt (she had episode of significant hematemesis at time of her admission. H/H responded well to transfusion. (3) CAD (coronary artery disease): Current visit: Yes Status: Chronic Likely CAD with nuclear stress test performed 01/12 showing a small and partially reversible defect involving the inferior lateral wall, suggesting likely small ischemia in the distribution of the left circumflex coronary artery. Patient is not a candidate for intervention due to her current and prior history of GIBs. EKG checked after she converted to NSR without any evidence of ischemia, and prior troponins negative. Prior episodes of chest pain appea to be musculoskeletal by exam. EKG and troponins negative as above. (4) DVT prophylaxis: Current visit: No Status: Acute SCDs, TEDs. Subjective Interval history since last seen: 77 year old female with a past medical history significant for prior GIB's, admitted from [facility] Emergency Department on 02/03 with a complaint of chest pain, epigastric pain, and witnessed Hematemesis in the ED. Mrs. 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 She has a prior history of hemorrhagic CVA in 2014, HTN, mild dementia, DJD, and a left sided below the knee amputation. She was hospitalized here at [facility] for a GIB in August of 2018, for which she underwent treatment with a protonix drip, carafate, and discontinuation of her anticoagulation. Earlier this month she was hospitalized again for chest pain, and underwent an abnormal nuclear stress test that showed a small partially reversible defect involving the inferolateral sanchez (LVEF 52%), with decision to treat her medically. She presented to the ED on the day of admission with complaints of CP and epigastric pain for 2-3 days, considerably worsening on the morning of admission, and was then witnessed having a bout of hematemesis. She was admitted under surgical services and taken to the OR for an EGD, which showed evidence of a blood and clots in the stomach, as well as old blood and an adhered clot to a large appearing duodenal ulcer. No signs of active bleeding were noted. Given her prior history medicine was consulted for medical management of the patient's medical comorbidities. Mrs. Glover's Hgb was appropriate this morning, and she had been hemodynamically stable. However, early this morning she developed a significant bradycardia which then transitioned to SVTs and then Afib with RVR. The patient experienced significant hypotension with this, and was not responding well to fluid boluses. She was initially unresponsive, but has regained her mental status and appears back at her former baseline. No other events reported. Remains afebrile. Exam Narrative Exam Narrative: General: Patient appears acutely ill, awake and alert on recheck, remains confused. NAD. Pallor again noted. Neck: Supple CV: Irregular and tachycardic at initial exam, regular with frequent ectopy on recheck. 3/6 murmur LLSB. Pulmonary: Clear to auscultation bilaterally, no crackles, wheezing, or rhonchi on limited anterior and lateral exam. Abdomen: + Bowel Sounds, soft, nontender by examination, nondistended. No epigastric pain. Vascular: No lower extremity edema in RLE. Left-sided BKA noted. Musculoskeletal: Pain with palpation of anterior chest, at site of patient's chest pain on prior exam. Objective Objective Clinical Data: Abnormal lab results 02/03/19 02/04/19 02/04/19 Range/Units 11:35 18:15 18:15 RBC (4.00-5.20) m/cumm Hgb 10.4 L (12.0-15.5) g/dL Hct 32.4 L (36.0-46.0) % RDW (11.7-14.6) % Chloride (98-107) mmol/L BUN (7-18) mg/dL Calcium (8.5-10.1) mg/dL Magnesium 1.5 L (1.8-2.4) mg/dL Crossmatch See Detail 02/05/19 02/05/19 02/05/19 Range/Units 06:25 06:25 07:55 RBC 3.51 L (4.00-5.20) m/cumm Hgb 10.2 L (12.0-15.5) g/dL Hct 31.6 L (36.0-46.0) % RDW 16.7 H (11.7-14.6) % Chloride 108 H (98-107) mmol/L BUN 41 H (7-18) mg/dL Calcium 8.1 L (8.5-10.1) mg/dL Magnesium 2.8 H 2.8 H (1.8-2.4) mg/dL Crossmatch Vital Signs Temperature 36.5 C 02/05/19 04:02 Temperature Source Temporal Artery Scan 02/04/19 21:00 Pulse 87 02/05/19 09:53 Pulse 83 02/05/19 09:53 Respiratory Rate 20 02/05/19 09:53 Respiratory Effort Non-Labored 02/05/19 04:02 Respiratory Depth Shallow 02/05/19 04:02 Respiratory Pattern Normal 02/05/19 04:02 Blood Pressure 75/46 L 02/05/19 09:53 Blood Pressure Mean 53 02/05/19 09:53 Blood Pressure Position Supine 02/04/19 21:00 Pulse Oximetry 99 02/05/19 09:53 Respiratory End-tidal CO2 32 02/03/19 16:25 Oxygen Delivery Method Nasal Cannula 02/05/19 04:02 Oxygen Flow Rate 3 02/05/19 04:02 Pain Level 4 02/04/19 21:00 Intake & Output 02/04/19 02/04/19 02/05/19 11:59 23:59 11:59 Intake Total 1671.666 / 3011.999 1340.333 / 3011.999 1108.333 / 1108.333 Output Total 500 / 4100 3600 / 4100 2100 / 2100 Balance 1171.666 / -1088.001 -2259.667 / -1088.001 -991.667 / -991.667 Weight 68.8 kg 61.7 kg Intake: IV 1671.666 / 2436.999 765.333 / 2436.999 1108.333 / 1108.333 Oral 500 / 500 Blood Product 75 / 75 Rbc Leuko Reduced Unit 75 / 75 [id number] Output: Urine 500 / 4100 3600 / 4100 2100 / 2100 Other: Urine Color Yellow Pale Yellow Yellow Urine Appearance Clear Clear Clear Comment carmichael intact and draining clear yellow urine. carmichael is patent and draining carmichael is patent and draining Stool Occult Blood Positive Positive Positive Stool Size Small Small Small Stool Characteristics Soft Soft Soft Formed Laboratory Results WBC 10.25 k/cumm (4.4-10.8) 02/05/19 06:25 RBC 3.51 m/cumm (4.00-5.20) L 02/05/19 06:25 Hgb 10.2 g/dL (12.0-15.5) L 02/05/19 06:25 Hct 31.6 % (36.0-46.0) L 02/05/19 06:25 MCV 90.0 fL (80-95) 02/05/19 06:25 MCH 29.1 pg (27.0-33.0) 02/05/19 06:25 MCHC 32.3 g/dL (32.0-36.0) 02/05/19 06:25 RDW 16.7 % (11.7-14.6) H 02/05/19 06:25 Plt Count 259 x1000/uL (130-400) 02/05/19 06:25 MPV 10.5 fL (8.0-11.0) 02/05/19 06:25 Immature Gran % 0.1 02/04/19 06:25 Neutrophils % 82.0 02/04/19 06:25 Lymphocytes % 9.2 02/04/19 06:25 Monocytes % 8.4 02/04/19 06:25 Eosinophils % 0.3 02/04/19 06:25 Basophils % 0.0 02/04/19 06:25 Absolute Neutrophils 7.97 k/cumm (1.2-6.7) H 02/04/19 06:25 Absolute Lymphocytes 0.89 k/cumm (1.2-3.4) L 02/04/19 06:25 Absolute Monocytes 0.82 k/cumm (0.11-0.7) H 02/04/19 06:25 Absolute Eosinophils 0.03 k/cumm (0.0-0.7) 02/04/19 06:25 Absolute Basophils 0.00 k/cumm (0.0-0.2) 02/04/19 06:25 Differential Comment Rbc morph reviewed 02/03/19 11:35 RBC Morphology See below 02/03/19 11:35 Polychromasia Present 02/03/19 11:35 Hypochromasia 1+ 02/03/19 11:35 Anisocytosis 1+ 02/03/19 11:35 PT 12.5 sec (9.3-11.0) H 02/04/19 06:25 INR 1.2 (0.9-1.1) H 02/04/19 06:25 APTT 25.8 sec (21.0-31.4) 02/03/19 11:35 Sodium 145 mmol/L (136-145) 02/05/19 07:55 Potassium 4.0 mmol/L (3.5-5.1) 02/05/19 07:55 Chloride 108 mmol/L (98-107) H 02/05/19 07:55 Carbon Dioxide 29.3 mmol/L (21.0-32.0) 02/05/19 07:55 Anion Gap 7.7 mmol/L (3-11) 02/05/19 07:55 BUN 41 mg/dL (7-18) H 02/05/19 07:55 Creatinine 1.01 mg/dL (0.55-1.02) 02/05/19 07:55 Estimated GFR/1.73 m2 52.74 (mL/min/1.73m2) 02/05/19 07:55 Glucose 77 mg/dL (70-100) 02/05/19 07:55 Calcium 8.1 mg/dL (8.5-10.1) L 02/05/19 07:55 Magnesium 2.8 mg/dL (1.8-2.4) H 02/05/19 07:55 Total Bilirubin 0.5 mg/dL (0.2-1.0) 02/04/19 06:25 AST 17 U/L (15-37) 02/04/19 06:25 ALT < 6 U/L (12-78) L 02/04/19 06:25 Alkaline Phosphatase 78 U/L (46-116) 02/04/19 06:25 Troponin I 0.03 ng/mL (0.00-0.06) 02/03/19 21:10 Total Protein 4.9 g/dL (6.4-8.2) L 02/04/19 06:25 Albumin 1.9 g/dL (3.4-5.0) L 02/04/19 06:25 Patient ABO/Rh A Positive 02/03/19 11:35 Antibody Screen Negative 02/03/19 11:35 Crossmatch See Detail 02/03/19 11:35
--- NOTE | 2019-02-05 11:45 | PGE_ITS ---
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 However, she spontaneously went into a rhythm consistent with SVTs, then Afib with RVR. Considered administration of Adenosine while patient was initially in a regular narrow complex tachycardia, but her rhythm changed to AFib. Patient's Afib was difficult to control in setting of her history of bradycardia with godfrey agents and her episode of bradycardia this morning - Digoxin not considered as this would likely cause or prolong bradycardia as well. Cardioversion and pacing was considered but she is DNR/DNI. Very likely not a candidate for PPM due to her significant comorbidities. Case was discussed with Cardiology at [facility] who agreed with the assessment. Mrs. Glover converted to a sinus rhythm. Her hypotension was managed with fluid boluses and IV Normal Saline. Given her overall poor prognosis family meeting was held with her son and , and the entirety of her care was reviewed. Given her relatively poor prognosis decision was made to alter the patient's care towards Comfort Measures - confirmed as appropriate wishes both earlier and later by patient herself. She was transitioned to [facility] measures, and will be moved to [facility] for a private room. (2) Upper GI bleeding: Current visit: Yes Status: Acute Large duodenal ulcer by EGD. For her comfort she was maintained on a Protonix gtt (she had episode of significant hematemesis at time of her admission. H/H responded well to transfusion. (3) CAD (coronary artery disease): Current visit: Yes Status: Chronic Likely CAD with nuclear stress test performed 01/12 showing a small and partially reversible defect involving the inferior lateral wall, suggesting likely small ischemia in the distribution of the left circumflex coronary artery. Patient is not a candidate for intervention due to her current and prior history of GIBs. EKG checked after she converted to NSR without any evidence of ischemia, and prior troponins negative. Prior episodes of chest pain appea to be musculoskeletal by exam. EKG and troponins negative as above. (4) DVT prophylaxis: Current visit: No Status: Acute SCDs, TEDs. Subjective Interval history since last seen: 77 year old female with a past medical history significant for prior GIB's, admitted from [facility] Emergency Department on 02/03 with a complaint of chest pain, epigastric pain, and witnessed Hematemesis in the ED. Mrs. 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 She has a prior history of hemorrhagic CVA in 2014, HTN, mild dementia, DJD, and a left sided below the knee amputation. She was hospitalized here at [facility] for a GIB in August of 2018, for which she underwent treatment with a protonix drip, carafate, and discontinuation of her anticoagulation. Earlier this month she was hospitalized again for chest pain, and underwent an abnormal nuclear stress test that showed a small partially reversible defect involving the inferolateral sanchez (LVEF 52%), with decision to treat her medically. She presented to the ED on the day of admission with complaints of CP and epigastric pain for 2-3 days, considerably worsening on the morning of admission, and was then witnessed having a bout of hematemesis. She was admitted under surgical services and taken to the OR for an EGD, which showed evidence of a blood and clots in the stomach, as well as old blood and an adhered clot to a large appearing duodenal ulcer. No signs of active bleeding were noted. Given her prior history medicine was consulted for medical management of the patient's medical comorbidities. Mrs. Glover's Hgb was appropriate this morning, and she had been hemodynamically stable. However, early this morning she developed a significant bradycardia which then transitioned to SVTs and then Afib with RVR. The patient experienced significant hypotension with this, and was not responding well to fluid boluses. She was initially unresponsive, but has regained her mental status and appears back at her former baseline. No other events reported. Remains afebrile. Exam Narrative Exam Narrative: General: Patient appears acutely ill, awake and alert on recheck, remains confused. NAD. Pallor again noted. Neck: Supple CV: Irregular and tachycardic at initial exam, regular with frequent ectopy on recheck. 3/6 murmur LLSB. Pulmonary: Clear to auscultation bilaterally, no crackles, wheezing, or rhonchi on limited anterior and lateral exam. Abdomen: + Bowel Sounds, soft, nontender by examination, nondistended. No epigastric pain. Vascular: No lower extremity edema in RLE. Left-sided BKA noted. Musculoskeletal: Pain with palpation of anterior chest, at site of patient's chest pain on prior exam. Objective Objective Clinical Data: Abnormal lab results 02/03/19 02/04/19 02/04/19 Range/Units 11:35 18:15 18:15 RBC (4.00-5.20) m/cumm Hgb 10.4 L (12.0-15.5) g/dL Hct 32.4 L (36.0-46.0) % RDW (11.7-14.6) % Chloride (98-107) mmol/L BUN (7-18) mg/dL Calcium (8.5-10.1) mg/dL Magnesium 1.5 L (1.8-2.4) mg/dL Crossmatch See Detail 02/05/19 02/05/19 02/05/19 Range/Units 06:25 06:25 07:55 RBC 3.51 L (4.00-5.20) m/cumm Hgb 10.2 L (12.0-15.5) g/dL Hct 31.6 L (36.0-46.0) % RDW 16.7 H (11.7-14.6) % Chloride 108 H (98-107) mmol/L BUN 41 H (7-18) mg/dL Calcium 8.1 L (8.5-10.1) mg/dL Magnesium 2.8 H 2.8 H (1.8-2.4) mg/dL Crossmatch Vital Signs Temperature 36.5 C 02/05/19 04:02 Temperature Source Temporal Artery Scan 02/04/19 21:00 Pulse 87 02/05/19 09:53 Pulse 83 02/05/19 09:53 Respiratory Rate 20 02/05/19 09:53 Respiratory Effort Non-Labored 02/05/19 04:02 Respiratory Depth Shallow 02/05/19 04:02 Respiratory Pattern Normal 02/05/19 04:02 Blood Pressure 75/46 L 02/05/19 09:53 Blood Pressure Mean 53 02/05/19 09:53 Blood Pressure Position Supine 02/04/19 21:00 Pulse Oximetry 99 02/05/19 09:53 Respiratory End-tidal CO2 32 02/03/19 16:25 Oxygen Delivery Method Nasal Cannula 02/05/19 04:02 Oxygen Flow Rate 3 02/05/19 04:02 Pain Level 4 02/04/19 21:00 Intake & Output 02/04/19 02/04/19 02/05/19 11:59 23:59 11:59 Intake Total 1671.666 / 3011.999 1340.333 / 3011.999 1108.333 / 1108.333 Output Total 500 / 4100 3600 / 4100 2100 / 2100 Balance 1171.666 / -1088.001 -2259.667 / -1088.001 -991.667 / -991.667 Weight 68.8 kg 61.7 kg Intake: IV 1671.666 / 2436.999 765.333 / 2436.999 1108.333 / 1108.333 Oral 500 / 500 Blood Product 75 / 75 Rbc Leuko Reduced Unit 75 / 75 [id number] Output: Urine 500 / 4100 3600 / 4100 2100 / 2100 Other: Urine Color Yellow Pale Yellow Yellow Urine Appearance Clear Clear Clear Comment carmichael intact and draining clear yellow urine. carmichael is patent and draining carmichael is patent and draining Stool Occult Blood Positive Positive Positive Stool Size Small Small Small Stool Characteristics Soft Soft Soft Formed Laboratory Results WBC 10.25 k/cumm (4.4-10.8) 02/05/19 06:25 RBC 3.51 m/cumm (4.00-5.20) L 02/05/19 06:25 Hgb 10.2 g/dL (12.0-15.5) L 02/05/19 06:25 Hct 31.6 % (36.0-46.0) L 02/05/19 06:25 MCV 90.0 fL (80-95) 02/05/19 06:25 MCH 29.1 pg (27.0-33.0) 02/05/19 06:25 MCHC 32.3 g/dL (32.0-36.0) 02/05/19 06:25 RDW 16.7 % (11.7-14.6) H 02/05/19 06:25 Plt Count 259 x1000/uL (130-400) 02/05/19 06:25 MPV 10.5 fL (8.0-11.0) 02/05/19 06:25 Immature Gran % 0.1 02/04/19 06:25 Neutrophils % 82.0 02/04/19 06:25 Lymphocytes % 9.2 02/04/19 06:25 Monocytes % 8.4 02/04/19 06:25 Eosinophils % 0.3 02/04/19 06:25 Basophils % 0.0 02/04/19 06:25 Absolute Neutrophils 7.97 k/cumm (1.2-6.7) H 02/04/19 06:25 Absolute Lymphocytes 0.89 k/cumm (1.2-3.4) L 02/04/19 06:25 Absolute Monocytes 0.82 k/cumm (0.11-0.7) H 02/04/19 06:25 Absolute Eosinophils 0.03 k/cumm (0.0-0.7) 02/04/19 06:25 Absolute Basophils 0.00 k/cumm (0.0-0.2) 02/04/19 06:25 Differential Comment Rbc morph reviewed 02/03/19 11:35 RBC Morphology See below 02/03/19 11:35 Polychromasia Present 02/03/19 11:35 Hypochromasia 1+ 02/03/19 11:35 Anisocytosis 1+ 02/03/19 11:35 PT 12.5 sec (9.3-11.0) H 02/04/19 06:25 INR 1.2 (0.9-1.1) H 02/04/19 06:25 APTT 25.8 sec (21.0-31.4) 02/03/19 11:35 Sodium 145 mmol/L (136-145) 02/05/19 07:55 Potassium 4.0 mmol/L (3.5-5.1) 02/05/19 07:55 Chloride 108 mmol/L (98-107) H 02/05/19 07:55 Carbon Dioxide 29.3 mmol/L (21.0-32.0) 02/05/19 07:55 Anion Gap 7.7 mmol/L (3-11) 02/05/19 07:55 BUN 41 mg/dL (7-18) H 02/05/19 07:55 Creatinine 1.01 mg/dL (0.55-1.02) 02/05/19 07:55 Estimated GFR/1.73 m2 52.74 (mL/min/1.73m2) 02/05/19 07:55 Glucose 77 mg/dL (70-100) 02/05/19 07:55 Calcium 8.1 mg/dL (8.5-10.1) L 02/05/19 07:55 Magnesium 2.8 mg/dL (1.8-2.4) H 02/05/19 07:55 Total Bilirubin 0.5 mg/dL (0.2-1.0) 02/04/19 06:25 AST 17 U/L (15-37) 02/04/19 06:25 ALT < 6 U/L (12-78) L 02/04/19 06:25 Alkaline Phosphatase 78 U/L (46-116) 02/04/19 06:25 Troponin I 0.03 ng/mL (0.00-0.06) 02/03/19 21:10 Total Protein 4.9 g/dL (6.4-8.2) L 02/04/19 06:25 Albumin 1.9 g/dL (3.4-5.0) L 02/04/19 06:25 Patient ABO/Rh A Positive 02/03/19 11:35 Antibody Screen Negative 02/03/19 11:35 Crossmatch See Detail 02/03/19 11:35
--- NOTE | 2019-02-05 13:25 | CHAPLAIN ---
I visited with Fay, he and son this morning in Fay's room in the ICU. Fay woke up enough to give directions and ask for specific care. Following a family meeting, the direction of Fay's care was changed to [facility] [employer]. Fay asked to speak to Dr. Meier prior to that and said I'm done. Fay makes requests of nursing and often asks that things be done immediately. Her son said this has been her style at home as well. She is not connected to a [place] community. [facility] and another son, daughter in law, and daughter have arrived. I will continue to visit and offer support.
[2019-02-05] MEDS: LORazepam 1 MG TAB PO ×3 (14:05→19:38)
[2019-02-05] MEDS: LORazepam 2 MG/ML VIAL IV/SC (22:11)
--- NOTE | 2019-02-06 03:11 | NUR.NOTE ---
Nursing Note: At 0225 hrs., pt found not breathing, pulseless, no heartbeat on auscultation. Pronounced at 0232 hrs. by wax ball molder called son at 0305 hrs.
== END 2019-02-06 05:57 | disposition expired | DRG 378 ==
LOC: ER 12:39 → SUR 12:57 → ICU 17:21 → MS 02-05 12:16
PROVIDERS: Internal Medicine; Admitting Provider Surgery; Emergency Provider Student in an Organized Health Care Education/Training Program; PCP Internal Medicine; Visit Provider Surgery
PROC: 0DJ68ZZ Inspection of Stomach, Via Natural or Artificial Opening Endoscopic (ICD-10-PCS; CPT 43235; principal; 2019-02-03 10:45)
DX: K26.4 Chronic or unspecified duodenal ulcer with hemorrhage (principal); I47.1 Supraventricular tachycardia; D62 Acute posthemorrhagic anemia; I95.9 Hypotension, unspecified; Z79.82 Long term (current) use of aspirin; Z51.5 Encounter for palliative care; R00.1 Bradycardia, unspecified; I48.91 Unspecified atrial fibrillation; I25.10 Atherosclerotic heart disease of native coronary artery without angina pectoris; Z87.19 Personal history of other diseases of the digestive system; Z86.711 Personal history of pulmonary embolism; Z86.718 Personal history of other venous thrombosis and embolism; I10 Essential (primary) hypertension; F03.90 Unspecified dementia, unspecified severity, without behavioral disturbance, psychotic disturbance, mood disturbance, and anxiety
CPT/HCPCS: 43239; 36415; 36416; 36430; 80048; 80053; 85027; 86850; 86900; 86901; 86920; 88305; 93005; 96361; 96365; 96368; 99222; 99232; 99233; 99253; 99285; 99291; 83735; 84484; 85014; 85018; 85025; 85610; 85730; 93010; J1100; J1756; J1941; J2060; J2354; J2405; P9016